=== PATIENT | female | born 1960 | race Caucasian/White ===

== ENCOUNTER → 2016-05-05 | Outpatient (CLI) | payer BC | END | disposition home or self-care (01) | LOC: C.LAB1850 15:20 | PROVIDERS: ATTEND Internal Medicine | DX: Z87.09 Personal history of other diseases of the respiratory system (principal); R05 Cough ==

== ENCOUNTER → 2016-07-22 | Outpatient (CLI) | payer BC ==
--- NOTE | 2016-07-22 16:41 | MAMMOGRAPHY REPORT ---
BILATERAL DIGITAL SCREENING MAMMOGRAM TOMOSYNTHESIS WITH CAD: 07/22/2016 CLINICAL HISTORY: Routine screening. Patient has no complaints. TECHNIQUE: Breast tomosynthesis in addition to standard 2D mammography was performed. Current study was also evaluated with a Computer Aided Detection (CAD) system. COMPARISON: Comparison is made to exams dated: 07/22/2015 mammogram, 07/30/2014 mammogram, 07/11/2014 m ammogram, 06/10/2013 mammogram, 06/07/2012 mammogram, and 05/23/2011 mammogram - [facility]. BREAST COMPOSITION: The tissue of both breasts is heterogeneously dense, which may obscure small ma sses. FINDINGS: No suspicious masses, calcifications, or areas of architectural distortion are noted in e ither breast. There has been no significant interval change compared to prior exams. IMPRESSION: ACR BI-RADS CATEGORY 1: NEGATIVE There is no mammographic evidence of malignancy. A 1 year screening mammogram is recommended. The p atient will receive written notification of the results. Approximately 10% of breast cancers are not detected with mammography. A negative mammographic repor t should not delay biopsy if a clinically suggestive mass is present. Lesvia Mims M.D. ah/:07/22/2016 16:25:10 [employer] Assistant: Melvina ELLSWORTH(Mir)(All)(JOSEFINA), [facility] letter sent: Normal 1/2 BI-RADS Code: ACR BI-RADS Category 1: Negative
== END | disposition home or self-care (01) ==
LOC: C.MAMM 16:02
PROVIDERS: ATTEND Obstetrics & Gynecology
DX: Z12.31 Encounter for screening mammogram for malignant neoplasm of breast (principal)

== ENCOUNTER → 2016-09-26 | Outpatient (CLI) | payer BC | END | disposition home or self-care (01) | LOC: C.PAPS 09:23 | PROVIDERS: ATTEND Obstetrics & Gynecology | DX: Z01.419 Encounter for gynecological examination (general) (routine) without abnormal findings (principal) ==

== ENCOUNTER → 2017-01-23 | Outpatient (CLI) | payer BC ==
[2017-01-27 14:35] LABS: GLIADIN DEAMIDATED IgA AB >100 UNITS (<20); GLIADIN DEAMIDATED IgG AB 50 UNITS (<20); RETICULIN IgA AB Negative (Negative)
== END | disposition home or self-care (01) ==
LOC: C.LAB1850 16:03
PROVIDERS: ATTEND Internal Medicine
DX: R39.15 Urgency of urination (principal)

== ENCOUNTER → 2017-05-05 | Day surgery (SDC) | payer BC, OTHER ==
[2017-03-24 12:13] VITALS: Ht 160 cm; Wt 65.9 kg
[~2017-05-05] VITALS: Ht 160 cm; Wt 65.9 kg
[~2017-05-05] MED LIST: CLB/200 PO; CONJ0.453 PO; CYAN500T13 PO; DOCU100C PO; FERR1TAB23 PO; KRIL1000 PO; LEVO88TA3 PO; LIDOCAINE HCL 2% 2 ML VIAL (20MG/ML) ONE; LUBI8CAP4 PO; MIDAZOLAM HCL 1 MG/ML 2ML VIAL ONE; ONDANSETRON INJ 2 MG/ML 2 ML VIAL ONE; PROPOFOL IV EMULSION 10 MG/ML 20 ML VIAL IV ONE; SODIUM CHLORIDE 0.9% 500ML 500 ML IV ONE
[2017-05-05 11:40] VITALS: TEMP 36.3
--- NOTE | 2017-05-05 12:20 | Endo History and Physical ---
History & Physical Date of Service: May 05, 2017. Chief Complaint: screening Referring Physician: Dr. Yasir King History of Present Illness 56 yo CF who presents for screening colonoscopy. Past Surgical History Hx Cardiac Surgery: No Hx Internal Defibrillator: No Hx Pacemaker: No Hx Abdominal Surgery: No Hx of Implantable Prosthesis: No Hx Post-Op Nausea and Vomiting: No Hx Cancer Surgery: No Hx Thoracic Surgery: No Hx Orthopedic: No Hx Urinary Tract Surgery: No Family History None Social History Smoking Status: Never Smoker Hx Substance Use: No Hx Alcohol Use: No Allergies Coded Allergies: Amoxicillin (Verified Allergy, Unknown, RASH, 03/24/17) Current Medications Reported Home Medications Medications Dose Route/Sig Max Daily Dose Days Date Category Stool Softener (Docusate Sodium) 100 Mg Cap 1 Cap PO QPM 03/24/17 Reported Iron (Ferrous Sulfate) 325 Mg Tab 1 Tab PO QPM 03/24/17 Reported Vitamin B12 500MCG (Cyanocobalamin) 500 Mcg Tab 500 Mcg PO QAM 03/24/17 Reported Krill Oil 1 Cap Cap 300 Mg PO QAM 03/24/17 Reported Amitiza (Lubiprostone) 8 Mcg Cap 8 Mcg PO BID PRN 03/24/17 Reported CeleBREX (Celecoxib) 200 Mg Cap 200 Mg PO QAM 03/24/17 Reported Prempro 0.45MG/1.5MG (Estrogens Conj/Medroxyprogest Acet) Tab 1 Tab PO QPM 03/24/17 Reported Levothyroxine Sodium 88 Mcg Tab 1 Tab PO QAM 03/24/17 Reported Vital Signs Weight (Kilograms): 65.91 Height (Feet): 5 Height (Inches): 3 Date Time Temp Pulse Resp B/P (MAP) Pulse Ox O2 Delivery O2 Flow Rate FiO2 05/05/17 11:40 36.3 63 16 106/66 (79) 99 Room Air Physical Exam General Appearance: WD/WN, no apparent distress Respiratory/Chest: Auscultation: breath sounds normal Cardiovascular: Heart Auscultation: RRR Abdomen: Bowel Sounds: normal Inspection & Palpation: soft, non-distended, no tenderness, guarding & rebound Assessment and Plan Assessment: 56 yo CF who presents for screening colonoscopy. Plan: Proceed with colonoscopy.
[2017-05-05 12:36] LABS: BASO % 0.4 %; BASO ABS # 0.03 K/uL (0-0.2); EOS % 0.9 %; EOS ABS # 0.06 K/uL (0-0.5); HEMATOCRIT 43.5 % (37-47); HEMOGLOBIN 14.9 g/dL (12.0-16.0); IG# 0.02 K/uL (0.00-0.02); LYMPH % 25.2 %; LYMPH ABS # 1.77 K/uL (1.2-3.4); MEAN CELL VOLUME 85.8 fL (80-100); MEAN CORPUSCULAR HEMOGLOBIN 29.4 pg (25-34); MEAN CORPUSCULAR HGB CONC 34.3 g/dl (32-36); MEAN PLATELET VOLUME 10.8 fL (7.4-10.4); MONO % 5.4 %; MONO ABS # 0.38 K/uL (0.11-0.59); NEUT % 67.8 %; NEUT ABS # 4.77 K/uL (1.4-6.5); PLATELET COUNT 188 K/uL (130-400); RED CELL DISTRIBUTION WIDTH CV 14.6 % (11.5-14.5); RED CELL DISTRIBUTION WIDTH SD 45.6 fL (36.4-46.3); WHITE BLOOD COUNT 7.03 K/uL (4.8-10.8)
--- NOTE | 2017-05-05 14:12 | Anesthesiology Progress Note ---
Anesthesia Post Op Note Date & Time May 05, 2017 at 14:12 Vital Signs Pain Intensity: 0 Vital Signs Past 12 Hours Date Time Temp Pulse Resp B/P (MAP) Pulse Ox O2 Delivery O2 Flow Rate FiO2 05/05/17 14:06 70 18 97/63 (74) 95 Room Air 05/05/17 13:52 89 18 102/62 (75) 96 Room Air 05/05/17 11:40 36.3 63 16 106/66 (79) 99 Room Air Notes Mental Status: alert / awake / arousable, participated in evaluation Pt Amnestic to Procedure: Yes Nausea / Vomiting: adequately controlled Pain: adequately controlled Airway Patency, RR, SpO2: stable & adequate BP & HR: stable & adequate Hydration State: stable & adequate Anesthetic Complications: no major complications apparent
--- NOTE | 2017-05-05 14:19 | GI REPORT ---
Procedure Date: 05/05/2017 1:17 PM Procedure: Colonoscopy Indications: Screening for colorectal malignant neoplasm Medicines: Monitored Anesthesia Care Complications: No immediate complications. Estimated Blood Loss: Estimated blood loss: none. Procedure: Pre-Anesthesia Assessment: - Prior to the procedure, a History and Physical was performed, and patient medications and allergies were reviewed. The patient's tolerance of previous anesthesia was also reviewed. The risks and benefits of the procedure and the sedation options and risks were discussed with the patient. All questions were answered, and informed consent was obtained. Prior Anticoagulants: The patient has taken no previous anticoagulant or antiplatelet agents. ASA Grade Assessment: II - A patient with mild systemic disease. After reviewing the risks and benefits, the patient was deemed in satisfactory condition to undergo the procedure. After I obtained informed consent, the scope was passed under direct vision. Throughout the procedure, the patient's blood pressure, pulse, and oxygen saturations were monitored continuously. The On-site loaner was introduced through the anus and advanced to the terminal ileum. The colonoscopy was performed without difficulty. The patient tolerated the procedure well. The quality of the bowel preparation was fair. The terminal ileum, ileocecal valve, appendiceal orifice, and rectum were photographed. Findings: The perianal and digital rectal examinations were normal. Multiple small-mouthed diverticula were found in the sigmoid colon. Non-bleeding internal hemorrhoids were found during retroflexion. The hemorrhoids were small. Impression: - Preparation of the colon was fair. - Diverticulosis in the sigmoid colon. - Non-bleeding internal hemorrhoids. - No specimens collected. Recommendation: - Resume previous diet. - Continue present medications. - Repeat colonoscopy in 3 years for surveillance. - Return to primary care physician as previously scheduled. Toby Becker DO 05/05/2017 2:18:29 PM This report has been signed electronically. Note Initiated On: 05/05/2017 1:17 PM I attest to the content of the Intraoperative Record and orders documented therein, exceptions below
[2017-05-05 14:21] VITALS: BP 110/61; PULSE 63; O2SAT 99
--- NOTE | 2017-05-05 14:24 | Discharge Instructions ---
Endoscopy Patient Instructions Date / Procedure(s) Performed May 05, 2017. Colonoscopy Allergy Information Coded Allergies: Amoxicillin (Verified Allergy, Unknown, RASH, 03/24/17) Discharge Date / Findings May 05, 2017. Diverticulosis Internal hemorrhoids Fair bowel prep Medication Instructions OK to resume all medications today as prescribed Reported Home Medications Medications Dose Route/Sig Max Daily Dose Days Date Category Stool Softener (Docusate Sodium) 100 Mg Cap 1 Cap PO QPM 03/24/17 Reported Iron (Ferrous Sulfate) 325 Mg Tab 1 Tab PO QPM 03/24/17 Reported Vitamin B12 500MCG (Cyanocobalamin) 500 Mcg Tab 500 Mcg PO QAM 03/24/17 Reported Krill Oil 1 Cap Cap 300 Mg PO QAM 03/24/17 Reported Amitiza (Lubiprostone) 8 Mcg Cap 8 Mcg PO BID PRN 03/24/17 Reported CeleBREX (Celecoxib) 200 Mg Cap 200 Mg PO QAM 03/24/17 Reported Prempro 0.45MG/1.5MG (Estrogens Conj/Medroxyprogest Acet) Tab 1 Tab PO QPM 03/24/17 Reported Levothyroxine Sodium 88 Mcg Tab 1 Tab PO QAM 03/24/17 Reported Provider Instructions Activity Restrictions - No exercising or heavy lifting for 24 hours. - Do not drink alcohol the day of the procedure. - Do not drive a car or operate machinery until the day after the procedure. - Do not make any important decisions or sign important papers in 24 hours after the procedure. Following Day: - Return to full activity which may include returning to work/school. Diet Start your diet with liquids and light foods (jello, soup, juice, toast). Then eat your usual diet if not nauseated. Treatment For Common After Affects For mild abdominal pain, bloating, or excessive gas: - Rest - Eat lightly - Lie on right side Follow-Up Information Follow-up with Dr. Yasir King as scheduled Anesthesia Information What You Should Know You have had a procedure that required some medicine to reduce anxiety and discomfort. This treatment is called moderate sedation. After receiving the treatment, you may be sleepy, but you will be able to breathe on your own. The effects of the treatment may last for several hours. Follow these instructions along with Activity/Diet recommendations noted above: * Do NOT do anything where dizziness or clumsiness would be dangerous. * Rest quietly at home today, then you can be up and about tomorrow. * Have a responsible person stay with you the rest of today. * You may have had an I.V. today. If so, you may take the dressing off later today. Recommendations Call your doctor if: * Trouble breathing * Continuous vomiting for more than 24 hours * Temperature above 101 degrees * Severe abdominal pain or bloating * Pain not relieved by pain medicine ordered * There is increased drainage or redness from any incision * A large amount of rectal bleeding greater than 2-3 tablespoons. (If you had a polyp/s removed or have hemorrhoids, a small amount of blood - from the rectum is to be expected.) * You have any unanswered questions or concerns. IN THE EVENT OF A SERIOUS EMERGENCY, GO TO THE NEAREST EMERGENCY ROOM Your discharge instructions were prepared by provider Toby Becker. Patient Instructions Signature Page Marcela Sorenson Patient (or Guardian) Signature/Date: I have read and understand the instructions given to me by my caregivers. Caregiver/RN/Doctor Signature/Date: The above-named patient and/or guardian has received patient instructions on this date. + Original Patient Signature Page (only) stays with chart. Please make copy for patient.
== END | disposition home or self-care (01) ==
LOC: C.GI 10:52
PROVIDERS: ATTEND Internal Medicine
DX: Z12.11 Encounter for screening for malignant neoplasm of colon (principal); K57.30 Diverticulosis of large intestine without perforation or abscess without bleeding; K64.8 Other hemorrhoids; Z88.1 Allergy status to other antibiotic agents; K90.0 Celiac disease; Z98.890 Other specified postprocedural states

== ENCOUNTER → 2017-07-26 | Outpatient (CLI) | payer OTHER ==
[~2017-07-26] MED LIST changes: -LIDOCAINE HCL 2% 2 ML VIAL (20MG/ML) ONE; -MIDAZOLAM HCL 1 MG/ML 2ML VIAL ONE; -ONDANSETRON INJ 2 MG/ML 2 ML VIAL ONE; -PROPOFOL IV EMULSION 10 MG/ML 20 ML VIAL IV ONE; -SODIUM CHLORIDE 0.9% 500ML 500 ML IV ONE
--- NOTE | 2017-07-26 15:22 | MAMMOGRAPHY REPORT ---
BILATERAL DIGITAL SCREENING MAMMOGRAM TOMOSYNTHESIS WITH CAD: 07/26/2017 CLINICAL HISTORY: Routine screening. Patient has no complaints. TECHNIQUE: Breast tomosynthesis in addition to standard 2D mammography was performed. Current study was also evaluated with a Computer Aided Detection (CAD) system. COMPARISON: Comparison is made to exams dated: 07/22/2016 mammogram, 07/22/2015 mammogram, 10/28/2014 a spiration, 07/30/2014 ultrasound, 07/30/2014 mammogram, and 07/11/2014 mammogram - [facility]. BREAST COMPOSITION: The tissue of both breasts is heterogeneously dense, which may obscure small mas ses. FINDINGS: There are possible groupings of microcalcifications in the upper outer middle and posterio r right breast, for which additional spot magnification views are recommended. A possible 5.7 mm nod ular asymmetry in the lateral posterior right breast on CC tomosynthesis slice 25/54 could represent normal overlapping tissue although additional spot compression tomosynthesis view with possible ultra sound is recommended. No other suspicious mass, architectural distortion or cluster of microcalcifications is seen bilatera lllawrence. IMPRESSION: ACR BI-RADS CATEGORY 0: INCOMPLETE EVALUATION: NEED ADDITIONAL IMAGING EVALUATION The possible groupings of microcalcifications in the right upper outer quadrant and 5.7 mm nodular as ymmetry in the lateral right breast need additional imaging evaluation. The patient will be called to schedule an appointment. Approximately 10% of breast cancers are not detected with mammography. A negative mammographic report should not delay biopsy if a clinically suggestive mass is present. Yessy Abraham M.D. ay/:07/26/2017 08:42:52 Telegraph Messenger: Tisha ELLSWORTH(R)(All), [facility] letter sent: Addl Imaging 0 BI-RADS Code: ACR BI-RADS Category 0: Incomplete Evaluation: Need Additional Imaging Evaluation
== END | disposition home or self-care (01) ==
LOC: C.MAMM 07:58
PROVIDERS: ATTEND Obstetrics & Gynecology
DX: Z12.31 Encounter for screening mammogram for malignant neoplasm of breast (principal); R92.8 Other abnormal and inconclusive findings on diagnostic imaging of breast; N64.89 Other specified disorders of breast

== ENCOUNTER 2018-11-08 06:50 | Inpatient (IN) ==
--- NOTE | 2018-10-17 10:55 | PAT Medication Instructions ---
Medication Instructions Date of Service October 17, 2018 Home Medications conj estrogen-medroxyprogesterone 0.3 mg-1.5 mg tablet 1 tab PO HS cyanocobalamin (vit B-12) 500 mcg tablet 500 mcg PO DAILY docusate sodium 100 mg tablet 100 mg PO BID levothyroxine 88 mcg tablet 88 mcg PO QAM DO NOT take the morning of surgery cyanocobalamin (vit B-12) 500 mcg tablet 500 mcg PO DAILY Take morning of surgery With a small sip of water, OTHERWISE NOTHING TO EAT OR DRINK AFTER MIDNIGHT: levothyroxine 88 mcg tablet 88 mcg PO QAM Take evening before surgery conj estrogen-medroxyprogesterone 0.3 mg-1.5 mg tablet 1 tab PO HS docusate sodium 100 mg tablet 100 mg PO BID Other Notes If you have any questions please call us at [phone] or [phone] or [phone] or [phone]
--- NOTE | 2018-10-17 12:03 | Anesthesiology Consultation ---
Date of Service October 17, 2018 Assessment & Plan (1) Encounter for pre-operative examination: PCP Clearance (Elisa Carey PA-C) 10/12: "Patient presents for preoperative medical clearance prior to undergoing left hip replacement. She remains active, achieving >4 METS, without anginal type symptoms. She is felt to be an acceptable risk to proceed with surgery." Chart Review Chart Review: Acceptable Risk for Surgery and Patient seen in Pre Admission Testing Teaching & Discussion Instructed NPO after midnight before surgery, except medications with 15 cc of water. Medication instructions provided according to the PAT guidelines. History Surgery Operation Date: 11/08/18 09:25 Proposed Procedures p Left Total Hip Arthroplasty - Cale Marquez MD Height/Weight Height: 5 ft 3 in Weight: 68.8 kg Allergies Allergy/AdvReac Type Severity Reaction Status Date / Time amoxicillin Allergy Mild RASH Verified 10/10/18 07:57 Medications Home Medications Medication Instructions Recorded Confirmed Last Taken conj estrogen-medroxyprogesterone 1 tab PO HS #3 tab 10/02/18 10/12/18 Unknown 0.3 mg-1.5 mg tablet cyanocobalamin (vit B-12) 500 mcg 500 mcg PO DAILY tab 10/02/18 10/10/18 Unknown tablet docusate sodium 100 mg tablet 100 mg PO BID tab 10/02/18 10/10/18 Unknown levothyroxine 88 mcg tablet 88 mcg PO QAM #30 tab 10/02/18 10/10/18 Unknown Past Medical History Medical History Anemia A CHILD Anxiety PANIC ATTACKS X 2 EPISODES THIS YEAR Hypothyroidism Osteoarthritis Exercise / Class Metabolic Activity II 4-5 Yardwork/Stairs/Walk up hill (Denies CP or SOB with 1 FOS) Past Family History Family History Mother Family history of diabetes mellitus Past Surgical History Surgical History History of colonoscopy History of tooth extraction Past Anesthesia History No Hx of Anesthesia Complications and No Family Hx of Anesthesia Complications GA NAIVE History of PONV No Hx of PONV and Hx of Motion Sickness Social History Smoking Status: Never smoker Do You Dip or Chew Tobacco: No Hx Alcohol Use: No Hx Substance Use: No substance use type: does not use Review of Systems Pt denies any recent chest pain, shortness of breath, palpitations, fever or URI. +dry cough currently Physical Exam Vital Signs BP: 107/70 P: 62bpm SPO2: 93% RA T: 98.0 F R: 12 ENMT Mouth: + dental restorations (one gold crown on molar); no chipped teeth and no loose teeth Thyromental Distance: < 3.5 Finger Breadths (3) Mallampati Class: II Neck normal visual inspection; neck extension not limited Respiratory normal respiratory effort Auscultation: lungs clear to auscultation bilaterally Cardiovascular Rate/Rhythm: regular rate and regular rhythm Heart Sounds: no murmur Vessels: no carotid bruit Extremities: no edema Testing Laboratory Results 10/17/18 12:08 10/17/18 12:08 PT 10.4 Seconds (9.0-12.0) 10/17/18 12:08 INR 1.0 (0.9-1.1) 10/17/18 12:08 APTT 25.9 Seconds (21.0-31.0) 10/17/18 12:08 Hemoglobin A1c 5.8 % (4.5-5.6) H 10/17/18 12:08 Urine Color Yellow 10/17/18 12:08 Urine Appearance Clear (Clear) 10/17/18 12:08 Urine pH 7.5 (4.5-7.5) 10/17/18 12:08 Ur Specific Alpha 1.017 (1.000-1.030) 10/17/18 12:08 Urine Protein Negative (Negative) 10/17/18 12:08 Urine Glucose (UA) Negative (Negative) 10/17/18 12:08 Urine Ketones Negative (Negative) 10/17/18 12:08 Urine Nitrite Negative (Negative) 10/17/18 12:08 Ur Leukocyte Esterase Negative (Negative) 10/17/18 12:08 Blood Type O Positive 10/17/18 12:08 Antibody Screen NEGATIVE 10/17/18 12:08 10/17/18 12:08 Urine Culture - Preliminary Urine,Clean Catch No growth - Less than 1,000 colonies/mL, Final report to follow. Electrocardiogram Date: 10/12/18 Findings: + NSR @ (67bpm with sinus arrhythmia)
[2018-10-17 13:21] LABS: Basophils # (auto) 0.03 K/uL (0-0.2); Basophils % (auto) 0.4 %; Eosinophils % (auto) 1.4 %; Hematocrit (blood only) 35.7 % (37-47); Hemoglobin 11.9 g/dL (12.0-16.0); Immature Granulocytes # (auto) 0.01 K/uL (0.00-0.02); Immature Granulocytes % (auto) 0.1 %; Lymphocytes # (auto) 1.76 K/uL (1.2-3.4); Lymphocytes % (auto) 25.5 %; Mean Corpuscular Hemoglobin 28.6 pg (25-34); Mean Corpuscular Hgb Conc 33.3 g/dL (32-36); Mean Corpuscular Volume 85.8 fL (80-100); Mean Platelet Volume 10.6 fL (7.4-10.4); Monocytes # (auto) 0.27 K/uL (0.11-0.59); Monocytes % (auto) 3.9 %; Neutrophils # (auto) 4.73 K/uL (1.4-6.5); Neutrophils % (auto) 68.7 %; Platelet Count 232 K/uL (130-400); RDW Coefficient of Variation 14.1 % (11.5-14.5); RDW Standard Deviation 43.9 fL (36.4-46.3); Red Blood Count 4.16 M/uL (4.2-5.4)
[2018-10-17 13:23] LABS: Appearance Urine Clear (Clear); Bilirubin Urine Negative (Negative); Blood Urine Negative (Negative); Color Urine Yellow; Glucose Urine UA Negative (Negative); Ketones Urine Negative (Negative); Leukocyte Esterase Urine Negative (Negative); Nitrite Urine Negative (Negative); Protein Urine Negative (Negative); Specific Gravity Urine 1.017 (1.000-1.030); Urobilinogen Urine Negative (Negative); pH Urine 7.5 (4.5-7.5)
[2018-10-17 13:34] LABS: Partial Thromboplastin Time 25.9 Seconds (21.0-31.0); Prothrombin Time 10.4 Seconds (9.0-12.0)
[2018-10-17 13:40] LABS: Albumin Level 3.4 gm/dl (3.4-5.0); BUN Creatinine Ratio 15.8 (10-20); Calcium 8.5 mg/dl (8.5-10.1); Creatinine Clr Calc Pharmacy 58.8 ml/min; Est GFR (African American) 74.6; Est GFR (Non-African American) 64.4; Potassium 4.1 mmol/L (3.5-5.1)
[2018-10-17 13:42] LABS: Estimated Average Glucose 120 mg/dl; Hemoglobin A1C 5.8 % (4.5-5.6)
[2018-10-17 13:43] LABS: Globulin 3.5 gm/dl (2.5-4.0); Total Protein 6.9 gm/dl (6.4-8.2)
--- NOTE | 2018-10-17 16:42 | History & Physical Report ---
Date of Service October 17, 2018 Assessment & Plan (1) Primary osteoarthritis of left hip: DIAGNOSES: Left hip osteoarthritis. PROCEDURE: Left total hip arthroplasty. PLAN: The patient is scheduled to undergo this procedure with Dr. Cale Marquez as an inpatient on , 11/08/2018. Risks and complications of the procedure such as infection, bleeding, pain, scarring, nerve and blood vessel damage, weakness, wound problems, stiffness, incomplete relief of symptoms, hardware failure, hardware loosening, wear, fracture, tendon or ligament injury, dislocation, leg length inequality, blood clots, embolism, heart attack, stroke and were explained to the patient at her visit today by Dr. Marquez. Informed consent to perform the procedure was obtained. We have also obtained medical clearance from the patient's primary care provider, Dr. Yasir King. We will need to obtain a preoperative CBC with differential, complete metabolic panel, PT, INR and blood type and screen, urinalysis, urine culture, EKG, hemoglobin A1c and a nasal culture for MRSA. The patient states she will obtain this necessary testing prior to her preoperative anesthesia appointment at the hospital this afternoon. The patient will be scheduled for her postoperative followup with myself on November 27 at 1:00 in the afternoon. At that time, I will provide her with an order for outpatient physical therapy with rehab protocol. She states that after the procedure, she would like to have in-home therapy, doing basic range of motion exercises for the first 2 weeks. I also provided the patient with paperwork for handicap placard for her vehicle. I advised her that I will discharge her from the hospital with a prescription for narcotic pain medication, also a prescription for diclofenac sodium for postoperative pain and inflammation relief and I will instruct her about purchasing Extra Strength Tylenol to use in conjunction with the oxycodone and using 2 baby aspirin daily for 30 days postoperatively for DVT prophylaxis along with the use of MAICOL stockings. I went over total hip precautions with the patient, discussed the use of the hip abduction pillow, advised her to purchase a hip kit from either [employer] or from [employer] online. She states she does have a walker at home that was her mother's that she will bring with her on the day of the procedure. I advised her that she will most likely stay overnight, and I will discharge her after physical therapy the next morning. I educated the patient about the use of antibiotics prior to dental procedures after this surgery. I also gave her information about attending lectures in regards to joint replacement therapy that are offered by [facility] on the first and monday of every month. I went over the entire packet for hip arthroplasty with the patient and advised her to review it at her leisure. I answered all questions clearly and completely in regards to the procedure and things that she will need to refrain from in the future. I have advised her that most likely she will not be able to drive for at least 4 weeks postoperatively. The patient and her verbalized understanding of all information provided during today's visit, and thanked us for the care they received and state if they have questions or concerns that should arise prior to her surgery date, they will contact the clinic accordingly. History of Present Illness Chief Complaint: CHIEF COMPLAINT: Left hip pain. Primary Care Provider: Gene King MD HISTORY OF PRESENT ILLNESS: This 57-year-old female presents to the clinic today for preoperative history and physical. The patient complains of a 2-year history of persistent pain in the left hip that is becoming increasingly persistent with limited range of motion. The patient denies any traumatic injury to the hip. She referred most of her pain to the anterior aspect of her left thigh and groin as well as over the lateral aspect of her hip. The patient states she is only able to walk approximately 100-200 feet before she has to stop due to pain she is experiencing. She has progressive stiffness which makes it difficult to perform activities of daily living such as putting on socks and shoes. She has used ibuprofen without relief and done some stretching and range of motion exercises, which have not improved her mobility. PAST SURGICAL HISTORY: Colonoscopy. PAST MEDICAL HISTORY: Hypothyroidism and a history of irregular heartbeat/palpitations. FAMILY HISTORY: Positive for diabetes, heart disease, coronary artery disease, stroke and Alzheimer's dementia. ALLERGIES: THE PATIENT HAS MEDICATION ALLERGY TO AMOXICILLIN. CURRENT MEDICATIONS USED: Calcium, stool softener 240 mg oral capsule 1 cap daily as needed for constipation, ibuprofen, OTC 200 mg tablets as needed for pain, levothyroxine unknown dosage daily for hypothyroidism and vitamin B12 unkn own dosage daily. SOCIAL HISTORY: Completely unremarkable. Allergies Allergy/AdvReac Type Severity Reaction Status Date / Time amoxicillin Allergy Mild RASH Verified 10/10/18 07:57 Home Medications Home Medications Medication Instructions Recorded Confirmed Type conj estrogen-medroxyprogesterone 1 tab PO HS #3 tab 10/02/18 10/12/18 History 0.3 mg-1.5 mg tablet cyanocobalamin (vit B-12) 500 mcg 500 mcg PO DAILY tab 10/02/18 10/10/18 History tablet docusate sodium 100 mg tablet 100 mg PO BID tab 10/02/18 10/10/18 History levothyroxine 88 mcg tablet 88 mcg PO QAM #30 tab 10/02/18 10/10/18 History Past Med/Surg History Medical History Anemia A CHILD Anxiety PANIC ATTACKS X 2 EPISODES THIS YEAR Hypothyroidism Osteoarthritis Surgical History History of colonoscopy History of tooth extraction Family History Mother Family history of diabetes mellitus Social History Preferred Language: [place] Communication Ability: Effective Associate Veterinarian Required: No Beliefs That Will Affect Care: None Current Living Situation: Spouse Other Information That Helps Us Care for You: No Feels Safe at Home: Yes Safety Concerns: Feels Safe At This Time Smoking Status: Never smoker Do You Dip or Chew Tobacco: No ; Second Hand Exposure: No ; Tobacco Cessation Education Requested by Patient: No Hx Alcohol Use: No Hx Substance Use: No Review of Systems All systems reviewed & are unremarkable except as noted in HPI & below Physical Exam Physical Exam: PHYSICAL EXAMINATION: Skin: The patient's skin is normal in appearance. No open skin lesions or discharge. Eyes: Pupils are equal and react to light and accommodating. Extraocular movements are intact. Throat: Posterior pharynx is clear with absence of edema, erythema or exudate. Cardiovascular exam: The patient has a regular rate and rhythm with no murmurs or gallops appreciated. Lungs: Auscultation of lung carbajal reveals clear breath sounds throughout, no wheezing, rales or rhonchi. Abdomen is nonobese, nondistended, nontender with normoactive bowel sounds. Extremities: Left hip flexion is 85 degrees, external rotation to 35 degrees, internal rotation 0 degrees. Stinchfield test is positive as is log roll test. Gait is antalgic. Calf is soft and supple, nontender to palpation. The patient is neurovascularly intact in left lower extremity. Peripheral pulses are easily palpable. Capillary refill less than 2 seconds and she has tenderness to palpation over the anterior and lateral aspect of the hip with crepitation with passive range of motion. Neurologic exam: Cranial nerves 2-12 are intact. No motor or sensory deficit. Psychological exam, patient is alert and oriented x3 with proper grooming and hygiene. Results & Data Laboratory Results Laboratory Results - last 48 hr 10/17/18 10/17/18 10/17/18 12:08 12:08 12:08 WBC 6.90 RBC 4.16 L Hgb 11.9 L Hct 35.7 L MCV 85.8 MCH 28.6 MCHC 33.3 RDW Std Deviation 43.9 RDW Coeff of Jazmyn 14.1 Plt Count 232 MPV 10.6 H Immature Gran % (Auto) 0.1 Neut % (Auto) 68.7 Lymph % (Auto) 25.5 Mcdonald % (Auto) 3.9 Eos % (Auto) 1.4 Baso % (Auto) 0.4 Immature Gran # (Auto) 0.01 Neut # (Auto) 4.73 Lymph # (Auto) 1.76 Mcdonald # (Auto) 0.27 Eos # (Auto) 0.10 Baso # (Auto) 0.03 PT INR APTT PTT Ratio Sodium 142 Potassium 4.1 Chloride 110 H Carbon Dioxide 27 Anion Gap 5.0 BUN 15 Creatinine 0.97 Est Cr Clr Drug Dosing 58.8 Est GFR ( Amer) 74.6 Est GFR (Non-Af Amer) 64.4 BUN/Creatinine Ratio 15.8 Glucose 91 Estimat Average Glucose Hemoglobin A1c Calcium 8.5 Total Bilirubin 1.0 AST 13 L ALT 18 Alkaline Phosphatase 87 Total Protein 6.9 Albumin 3.4 Globulin 3.5 Albumin/Globulin Ratio 1.0 Urine Color Yellow Urine Appearance Clear Urine pH 7.5 Ur Specific [place] 1.017 Urine Protein Negative Urine Glucose (UA) Negative Urine Ketones Negative Urine Blood Negative Urine Nitrite Negative Urine Bilirubin Negative Urine Urobilinogen Negative Ur Leukocyte Esterase Negative Nasal Screen MRSA (PCR) Blood Type Antibody Screen 10/17/18 10/17/18 10/17/18 12:08 12:08 12:08 WBC RBC Hgb Hct MCV MCH MCHC RDW Std Deviation RDW Coeff of Jazmyn Plt Count MPV Immature Gran % (Auto) Neut % (Auto) Lymph % (Auto) Mcdonald % (Auto) Eos % (Auto) Baso % (Auto) Immature Gran # (Auto) Neut # (Auto) Lymph # (Auto) Mcdonald # (Auto) Eos # (Auto) Baso # (Auto) PT 10.4 INR 1.0 APTT 25.9 PTT Ratio 1.0 Sodium Potassium Chloride Carbon Dioxide Anion Gap BUN Creatinine Est Cr Clr Drug Dosing Est GFR ( Amer) Est GFR (Non-Af Amer) BUN/Creatinine Ratio Glucose Estimat Average Glucose Hemoglobin A1c Calcium Total Bilirubin AST ALT Alkaline Phosphatase Total Protein Albumin Globulin Albumin/Globulin Ratio Urine Color Urine Appearance Urine pH Ur Specific [place] Urine Protein Urine Glucose (UA) Urine Ketones Urine Blood Urine Nitrite Urine Bilirubin Urine Urobilinogen Ur Leukocyte Esterase Nasal Screen MRSA (PCR) Negative Blood Type O Positive Antibody Screen NEGATIVE 10/17/18 12:08 WBC RBC Hgb Hct MCV MCH MCHC RDW Std Deviation RDW Coeff of Jazmyn Plt Count MPV Immature Gran % (Auto) Neut % (Auto) Lymph % (Auto) Mcdonald % (Auto) Eos % (Auto) Baso % (Auto) Immature Gran # (Auto) Neut # (Auto) Lymph # (Auto) Mcdonald # (Auto) Eos # (Auto) Baso # (Auto) PT INR APTT PTT Ratio Sodium Potassium Chloride Carbon Dioxide Anion Gap BUN Creatinine Est Cr Clr Drug Dosing Est GFR ( Amer) Est GFR (Non-Af Amer) BUN/Creatinine Ratio Glucose Estimat Average Glucose 120 Hemoglobin A1c 5.8 H Calcium Total Bilirubin AST ALT Alkaline Phosphatase Total Protein Albumin Globulin Albumin/Globulin Ratio Urine Color Urine Appearance Urine pH Ur Specific [place] Urine Protein Urine Glucose (UA) Urine Ketones Urine Blood Urine Nitrite Urine Bilirubin Urine Urobilinogen Ur Leukocyte Esterase Nasal Screen MRSA (PCR) Blood Type Antibody Screen
[~2018-11-08 06:50] MED LIST changes: +ACETAMINOPHEN 500 MG TAB PO SCH; +BUPIVACAINE 0.5 % 5 MG/1 ML PF 10ML VIAL ONE; +CEFAZOLIN 2000MG 2,000 MG/15 ML SYR IV SCH; -CLB/200 PO; -CONJ0.453 PO; -CYAN500T13 PO; +CeleBREX 200 MG CAP PO SCH; -DOCU100C PO; +FAMOTIDINE 20 MG TAB PO SCH; -FERR1TAB23 PO; -KRIL1000 PO; +LACTATED RINGER'S 1,000 ML IV SCH; -LEVO88TA3 PO; +LR 500ML BOLUS, THEN 15ML/HR IV SCH; -LUBI8CAP4 PO; +METOCLOPRAMIDE HCL 10 MG TABLET PO SCH; +ROPIVACAINE 0.5% HCL/PF 150 MG, BUPIVACAINE 0.5% MPF 30 ML, EPINEPHrine 0.15 MG, Ketoro... INFIL SCH; +SCOPOLAMINE 1.5 MG TDSY TD SCH; +TRAMADOL HCL 50 MG TABLET PO SCH; +TRANEXAMIC ACID 1,000 MG **IV Intra-op IV SCH; +TRANEXAMIC ACID 1,000 MG **IV Pre-op IV SCH; +dexAMETHasone 4 MG TAB PO SCH
[2018-11-08] MEDS ORDERED: fentaNYL citrate 100 MCG/2 ML VIAL ONE (08:12)
[2018-11-08] MEDS ORDERED: MIDAZOLAM HCL 1 MG/ML 2ML VIAL ONE ×2 (08:12→08:13)
--- NOTE | 2018-11-08 09:40 | History & Physical Bridge Note ---
Date of Service November 08, 2018 History & Physical Bridge Note I have examined the patient, reviewed the History & Physical and in the interval since the performance of the History & Physical I have noted the following changes of clinical significance: no changes noted
[2018-11-08] MEDS ORDERED: ORTHO JOINT ANESTHETIC ONE (09:46)
[2018-11-08] MEDS ORDERED: ATROPINE SULFATE 0.1 MG/ML 10ML SYR IV PRN (10:07)
[2018-11-08] MEDS ORDERED: ePHEDrine sulfate 50 MG/ML AMP IV PRN (10:07)
[2018-11-08] MEDS ORDERED: DEXAMETHASONE SOD INJ 4 MG/ML VIAL ONE (10:37)
[2018-11-08] MEDS ORDERED: ONDANSETRON INJ 2 MG/ML 2 ML VIAL ONE (10:37)
[2018-11-08] MEDS ORDERED: PROPOFOL IV EMULSION 10 MG/ML 20 ML VIAL IV ONE (10:37)
[2018-11-08] MEDS ORDERED: LIDOCAINE HCL 2% 2 ML VIAL/AMP(20MG/ML) INFIL ONE (10:37)
[2018-11-08] MEDS ORDERED: MAGNESIUM HYDROXIDE SUSP 30 ML UDC PO PRN (11:40)
[2018-11-08] MEDS ORDERED: ONDANSETRON INJ 2 MG/ML 2 ML VIAL IV PRN (11:40)
[2018-11-08] MEDS ORDERED: METOCLOPRAMIDE HCL INJ 5 MG/ML 2 ML VIAL IV PRN (11:40)
[2018-11-08] MEDS ORDERED: HYDROmorphone INJ 0.5 MG/0.5 ML SYR IV PRN (11:40)
[2018-11-08] MEDS ORDERED: NALOXONE HCL 0.4 MG/1 ML VIAL/CARP IV PRN (11:40)
[2018-11-08] MEDS ORDERED: BISACODYL 10 MG SUPP PR PRN (11:40)
[2018-11-08] MEDS ORDERED: ALUMINUM/MAGNESIUM SUSP 30 ML UDC PO PRN (11:40)
[2018-11-08] MEDS ORDERED: DiphenhydrAMINE HCL 50 MG/ML VIAL IV PRN (11:40)
--- NOTE | 2018-11-08 11:40 | Operative Report ---
Post Operative Report Pre & Post Diagnosis Operation Date: 11/08/18 09:25 Pre-Op Diagnosis: Left Hip Arthritis Post-Op Diagnosis: Left Hip Arthritis Procedure Operation Date: 11/08/18 09:25 Actual Procedures p Left Total Hip Arthroplasty(Left) - Cale Marquez MD Surgeon Cale Marquez MD Brine Room Laborer Zack Welch MD; Walter Evans MS-3 Estimated Blood Loss 100 Findings Consistent with Post-Op Diagnosis Specimens femoral head Complications none Disposition Accompanied Patient To Recovery: Yes Disposition: Recovery Room Description of Procedure I was present during the entire procedure, however, Dr. Marquez was assisted by Dr. Welch and Walter. Please see his note for specifics of the case. I attest to the content of the Intraoperative Record and any orders documented therein. Any exceptions are noted below.
[2018-11-08] MEDS ORDERED: SODIUM CHLORIDE 0.9% 1000ML 1,000 ML IV SCH (11:45)
[2018-11-08] MEDS ORDERED: KETOROLAC 30 MG/ML VIAL IV SCH (11:45)
[2018-11-08] MEDS ORDERED: TAMSULOSIN HCL 0.4 MG CAP PO PRN (11:46)
--- NOTE | 2018-11-08 12:11 | Operative Report ---
Post Operative Report Pre & Post Diagnosis Operation Date: 11/08/18 09:25 Pre-Op Diagnosis: Left Hip Arthritis Post-Op Diagnosis: Left Hip Arthritis Procedure Operation Date: 11/08/18 09:25 Actual Procedures p Left Total Hip Arthroplasty(Left) - Cale Marquez MD Surgeon Cale Marquez MD Gymnastic Coach Zack Adams MD; Walter Evans MS-3 Estimated Blood Loss 100 Findings Consistent with Post-Op Diagnosis Specimens as per procedure notes Complications none Disposition Accompanied Patient To Recovery: Yes Disposition: Recovery Room Indications 57/F left hip end stage arthritis with no relief following conservative mesaures Description of Procedure Lateral decubitus, standard prep and drape, time out, Ballard's approach for uncemented THR. Please see Dr Marquez's procedure notes for specific details. I was present throughout the case, assisted in wound closure and transferred the patient to PACU in stable condition I attest to the content of the Intraoperative Record and any orders documented therein. Any exceptions are noted below.
--- NOTE | 2018-11-08 12:32 | Operative Report ---
DATE OF OPERATION: 11/08/2018 PREOPERATIVE DIAGNOSIS: Left hip osteoarthritis. POSTOPERATIVE DIAGNOSIS: Left hip osteoarthritis. OPERATION PERFORMED: Left total hip arthroplasty. SURGEON: Cale Marquez MD. ASSISTANTS: Zack Adams MD and Walter Evans MS3. ESTIMATED BLOOD LOSS: 100 mL. INTRAVENOUS FLUIDS: 1800 mL of crystalloid. SPECIMENS: Femoral head. COMPLICATIONS: None. IMPLANTS: 1. DePuy Gription acetabular sector shell, 50 mm outer diameter. 2. DePuy Fanrock 6.5 x 40 mm cancellous bone screw. 3. Fanrock Ultrex polyethylene liner for a 32 mm femoral head neutral. 4. DePuy Bleckley size 2 standard offset femoral stem. 5. Biolox delta ceramic femoral head, 32 mm diameter with +5 offset. INDICATIONS: Ms. Sorenson is a 57-year-old female who has had left hip pain that has been refractory to conservative management. X-rays show [id number] arthritis. I had a long discussion with her about the risks and benefits of surgery, alternatives to surgery and expected outcomes. After reviewing all these, she elected to proceed with surgery. All questions were answered. Informed consent was signed. OPERATIVE FINDINGS: The patient had [id number] arthritis. A ceramic on polyethylene bearing total hip arthroplasty was performed. DESCRIPTION OF THE OPERATION: The patient was identified in the preoperative holding area where her surgical site was marked. She was given a spinal by anesthesia and brought back to the main operating room. She was placed on the operating room table and carefully moved in the lateral decubitus position. Axillary roll was placed. All bony prominences were padded. Perioperative antibiotics were administered. She was prepped and draped in normal sterile fashion. Prior to incision, a multidisciplinary timeout was called. All in the room were in agreement. I began by making a 14 cm long incision for a posterior approach to the hip. We dissected down through subcutaneous tissues to the level of the fascia. Fascia was incised in line with the incision. Charnley bow was placed. The quadratus femoris short external rotators and piriformis were dissected off the posterior aspect of the greater trochanter. Box cut was made in the capsule. The femoral head was dislocated. A femoral neck cut was made at 10 mm after we had measured her center of head to lesser trochanteric distance, which was 53 mm. We then exposed the acetabulum. The labrum was sharply excised. Contents of the cotyloid fossa were removed with electrocautery. We then began reaming. We started with a size 42 mm reamer to medialize her. We then reamed up by [address] up to a size 50. This gave us excellent bleeding cancellous bone. We therefore opened up the 50 DePuy Gription acetabular sector cup. We irrigated out the acetabulum and then impacted the cup with a cup in 40 degrees of lateral opening and 25 degrees of anteversion. A single cancellous bone screw was placed up into the ilium measuring 40 mm in length. Excellent fixation was obtained. The polyethylene liner was then placed. We checked to ensure the locking mechanism had engaged, which it had. We then removed a small inferior osteophyte. We then moved on to the femur. The lateral neck was removed with a Nextdoor cutter osteotome. The intramedullary guide was used followed by the lateralizing reamer. We then reamed her all the way up to between a size 2 and size 3. I then began broaching. With the size 2 broach, we had good torsional stability and the broach sat flush with our neck cut. The preoperative template was between a size 2 and size 3, so I elected to use the size 2 stem. We then trialed her. We started with a standard offset +1.5 mm femoral head. When we reduced her, her leg length was just a little bit short and her shuck test was a little too loose. Therefore, we upsized her to the +5 femoral head. Her lesser troch to center of femoral head distance was 54 mm. We reduced the hip and retrialed her. She now had symmetric leg lengths. Her shuck test was appropriate. There was no impingement with extension and external rotation of the hip. She was stable in the sleeper position. At 90 degrees of hip flexion, she could be internally rotated 45 degrees before levering out of the cup. I was very happy with the stability exam; therefore, I removed the trial components from the femur. The femoral canal was irrigated and dried. We then opened up the real size 2 standard offset Bleckley femoral stem and impacted it down into the femur. It sat at the same level as the broach. We therefore opened up the 32 mm diameter +5 ceramic femoral head. This was gently impacted onto the trunnion. We then atraumatically reduced the hip and irrigated the hip out with a dilute Betadine, which was allowed to sit for 3 minutes. Next, the periarticular injection was placed into the pericapsular tissues, particularly anteriorly and superiorly to avoid the sciatic nerve. Also, it was injected in the subcutaneous tissues. The short external rotators and piriformis were repaired through bone tunnels in the posterior aspect of the greater trochanter using #2 Vicryl. Fascia was run with a looped #1 PDS suture. The deep subcutaneous layers were closed with 2 layers of running #1 PDS. A 2-0 Vicryl was used in the dermal layer. A ZipLine was placed on the skin. Silverlon dressing was placed. The patient was then rolled supine. Her sedation was lifted and she was transferred to the recovery room in stable condition. POSTOPERATIVE COURSE: The patient will be admitted to the hospital overnight for pain control and monitoring. She will be on aspirin for DVT prophylaxis. She will follow posterior hip precautions. I attest to the content of the Intraoperative Record and any orders documented therein. Any exceptions are noted below. JOSE
--- NOTE | 2018-11-08 12:40 | XRay Report ---
AP PELVIS, CROSSTABLE LATERAL LEFT HIP History: Left total hip arthroplasty. Degenerative arthritis. Postop. FINDINGS: The patient is status post a left total hip arthroplasty. The hardware is intact. No fractu re or dislocation. IMPRESSION: Left total hip arthroplasty. No evidence for hardware complication. Electronically signed by: Ben Marroquin M.D. 11/08/2018 12:39 PM
--- NOTE | 2018-11-08 12:59 | Anesthesiology Progress Note ---
Date of Service November 08, 2018 Anesthesia Post Procedure Vital Signs Vital Signs: Temp Pulse Pulse Resp BP Pulse Ox 11/08/18 12:53 36.7 C 63 16 113/66 99 11/08/18 12:40 36.8 C 51 L 16 114/66 99 11/08/18 12:30 52 L 16 114/68 100 11/08/18 12:20 54 L 16 106/64 100 11/08/18 12:10 36.1 C L 62 16 107/62 93 11/08/18 07:23 36.9 C 64 18 122/77 95 Pain Intensity Left Hip: Pain Intensity: 7 Transfer of Care Handoff Completed per policy Notes Mental Status: alert / awake / arousable Patient Amnestic to Procedure: Yes Nausea / Vomiting: adequately controlled Pain: adequately controlled Airway Patency, RR, SpO2: stable & adequate BP & HR: stable & adequate Hydration State: stable & adequate Neuraxial Anesthesia: was administered and sensory block is resolving Anesthetic Complications: no major complications apparent
[2018-11-08] MEDS: KETOROLAC 30 MG/ML VIAL IV SCH ×2 (14:47→20:30)
[2018-11-08] MEDS: ACETAMINOPHEN 500 MG TAB PO SCH ×2 (14:47→20:50)
[2018-11-08] MEDS: CHECK SCOPOLAMINE PATCH PLACEMENT SCH (15:42)
[2018-11-08] MEDS ORDERED: Nursing to Pharmacy Communication ONE (15:43)
[2018-11-08] MEDS: CEFAZOLIN 2000MG 2,000 MG/15 ML SYR IV SCH (17:12)
[2018-11-08] MEDS ORDERED: TRANEXAMIC ACID 1,000 MG in 0.9 % SODIUM CHLORIDE 100 ML IV SCH (17:40)
[2018-11-08] MEDS: OXYCODONE HCL IR 5 MG TAB (IMMEDIATE RELEASE) PO PRN (18:43)
[2018-11-08] MEDS: ASPIRIN 81 MG ECTAB PO SCH (20:31)
[2018-11-08] MEDS: DOCUSATE SODIUM 100 MG CAP PO SCH (20:31)
[2018-11-08] MEDS ORDERED: NON-FORMULARY MEDICATION (Docusate Sodium 100 MG) PO SCH (21:00)
[2018-11-08] MEDS ORDERED: CeleBREX 200 MG CAP PO SCH (21:00)
[2018-11-08] MEDS ORDERED: SENNA 8.6 MG TAB PO SCH (21:00)
[2018-11-09] MEDS: OXYCODONE HCL IR 5 MG TAB (IMMEDIATE RELEASE) PO PRN (00:08)
[2018-11-09] MEDS: CHECK SCOPOLAMINE PATCH PLACEMENT SCH (00:09)
[2018-11-09] MEDS: KETOROLAC 30 MG/ML VIAL IV SCH ×2 (02:55→07:46)
[2018-11-09] MEDS: CEFAZOLIN 2000MG 2,000 MG/15 ML SYR IV SCH (02:56)
[2018-11-09] MEDS: ACETAMINOPHEN 500 MG TAB PO SCH (06:01)
[2018-11-09] MEDS ORDERED: LEVOTHYROXINE SODIUM 88 MCG TABLET PO SCH (06:30)
[2018-11-09 06:49] LABS: Basophils # (auto) 0.01 K/uL (0-0.2); Basophils % (auto) 0.1 %; Hematocrit (blood only) 27.6 % (37-47); Hemoglobin 9.2 g/dL (12.0-16.0); Immature Granulocytes # (auto) 0.03 K/uL (0.00-0.02); Immature Granulocytes % (auto) 0.2 %; Lymphocytes # (auto) 1.31 K/uL (1.2-3.4); Lymphocytes % (auto) 9.1 %; Mean Corpuscular Hgb Conc 33.3 g/dL (32-36); Mean Corpuscular Volume 84.1 fL (80-100); Mean Platelet Volume 9.9 fL (7.4-10.4); Monocytes # (auto) 0.76 K/uL (0.11-0.59); Monocytes % (auto) 5.3 %; Neutrophils # (auto) 12.36 K/uL (1.4-6.5); Neutrophils % (auto) 85.3 %; Platelet Count 221 K/uL (130-400); RDW Coefficient of Variation 13.8 % (11.5-14.5); RDW Standard Deviation 41.9 fL (36.4-46.3); Red Blood Count 3.28 M/uL (4.2-5.4); White Blood Count 14.47 K/uL (4.8-10.8)
[2018-11-09 07:15] LABS: BUN Creatinine Ratio 20.3 (10-20); Calcium 8.7 mg/dl (8.5-10.1); Creatinine Clr Calc Pharmacy 53.8 ml/min; Est GFR (African American) 70.6; Est GFR (Non-African American) 60.9; Potassium 4.5 mmol/L (3.5-5.1)
[2018-11-09] MEDS: DOCUSATE SODIUM 100 MG CAP PO SCH (07:47)
[2018-11-09] MEDS: ASPIRIN 81 MG ECTAB PO SCH (07:47)
[2018-11-09] MEDS ORDERED: dexAMETHasone 4 MG TAB PO SCH (08:00)
--- NOTE | 2018-11-09 08:10 | Anesthesiology Progress Note ---
Date of Service November 09, 2018 Anesthesia Post Procedure Vital Signs Vital Signs: Temp Pulse Pulse Resp BP Pulse Ox 11/09/18 07:13 36.5 C 69 16 104/58 L 94 11/09/18 02:54 37.0 C 54 L 14 101/51 L 94 11/08/18 23:19 36.5 C 55 L 14 107/61 94 11/08/18 19:49 36.4 C L 63 16 110/53 L 92 11/08/18 16:10 36.3 C L 55 L 16 101/52 L 94 11/08/18 15:13 36.3 C L 60 16 102/53 L 95 11/08/18 14:09 64 16 117/69 98 11/08/18 13:39 61 16 112/71 95 11/08/18 13:10 36.3 C L 57 L 16 116/68 96 11/08/18 12:53 36.7 C 63 16 113/66 99 11/08/18 12:40 36.8 C 51 L 16 114/66 99 11/08/18 12:30 52 L 16 114/68 100 11/08/18 12:20 54 L 16 106/64 100 11/08/18 12:10 36.1 C L 62 16 107/62 93 Pain Intensity Left Hip: Pain Intensity: 7 Notes Mental Status: alert / awake / arousable and participated in evaluation Patient Amnestic to Procedure: Yes Nausea / Vomiting: adequately controlled Pain: adequately controlled Airway Patency, RR, SpO2: stable & adequate BP & HR: stable & adequate Hydration State: stable & adequate Neuraxial Anesthesia: was administered and sensory block resolved Anesthetic Complications: no major complications apparent and Pt Satisfied with anesthetic care
[2018-11-09] MEDS ORDERED: CYANOCOBALAMIN 500 MCG TABLET (VITAMIN B-12) PO SCH (09:00)
[2018-11-09] MEDS ORDERED: MULTIVITAMIN TAB PO SCH (09:00)
--- NOTE | 2018-11-09 11:17 | Orthopedic Progress Note ---
Date of Service November 09, 2018 Assessment & Plan (1) S/P total hip arthroplasty: Reviewed Total Hip precautions PT/OT this AM DVT prophy with Aspirin and TEDs Ice with EZ wrap Pain control with PO meds Abduction pillow use for 6 wks post op F/u at [facility] as previously scheduled With any questions call Subjective Patient is day 1 s/p Left total hip arthroplasty. Doing very well. Just finished PT. Ambulating well with walker assistance and did stairs. Mild pain at incision site. Denies CP, SOB, nausea, vomiting, fever, chills, sweats or lethargy. Patient states that he will be ready to go home later this AM with in-home therapy. Physical Exam Physical Exam: Left hip: dressing clean, dry and intact. Minimal TTP around incision site. Able to perform SLRT. Minimal pain with very light passive internal and external rotation. Calf soft and supple. NV intact in entire Lt LE. Minimal edema. No erythema, ecchymosis, warmth or deformity. Results & Data Vital Signs (Past 12 Hours) Vital Signs Temp Pulse Resp BP Pulse Ox 11/09/18 10:54 36.5 C 69 16 104/58 L 94 11/09/18 07:13 36.5 C 69 16 104/58 L 94 11/09/18 02:54 37.0 C 54 L 14 101/51 L 94 11/08/18 23:19 36.5 C 55 L 14 107/61 94 Laboratory Results 11/09/18 11/09/18 Range/Units 06:32 06:32 WBC 14.47 H (4.8-10.8) K/uL RBC 3.28 L (4.2-5.4) M/uL Hgb 9.2 L (12.0-16.0) g/dL Hct 27.6 L (37-47) % MCV 84.1 (80-100) fL MCH 28.0 (25-34) pg MCHC 33.3 (32-36) g/dL RDW Std Deviation 41.9 (36.4-46.3) fL RDW Coeff of Jazmyn 13.8 (11.5-14.5) % Plt Count 221 (130-400) K/uL MPV 9.9 (7.4-10.4) fL Immature Gran % (Auto) 0.2 % Neut % (Auto) 85.3 % Lymph % (Auto) 9.1 % [place] % (Auto) 5.3 % Eos % (Auto) 0.0 % Baso % (Auto) 0.1 % Immature Gran # (Auto) 0.03 H (0.00-0.02) K/uL Neut # (Auto) 12.36 H (1.4-6.5) K/uL Lymph # (Auto) 1.31 (1.2-3.4) K/uL [place] # (Auto) 0.76 H (0.11-0.59) K/uL Eos # (Auto) 0.00 (0-0.5) K/uL Baso # (Auto) 0.01 (0-0.2) K/uL Sodium 138 (136-145) mmol/L Potassium 4.5 (3.5-5.1) mmol/L Chloride 107 (98-107) mmol/L Carbon Dioxide 27 (21-32) mmol/L Anion Gap 4.0 (3-11) BUN 21 H (7-18) mg/dl Creatinine 1.01 (0.6-1.2) mg/dl Est Cr Clr Drug Dosing 53.8 ml/min Est GFR ( Amer) 70.6 Est GFR (Non-Af Amer) 60.9 BUN/Creatinine Ratio 20.3 H (10-20) Glucose 121 H (70-99) mg/dl Calcium 8.7 (8.5-10.1) mg/dl
--- NOTE | 2018-11-09 11:48 | Discharge Summary ---
Date of Service November 09, 2018 Admission HPI Per Admitting Provider HISTORY OF PRESENT ILLNESS: This 57-year-old female presents to the clinic today for preoperative history and physical. The patient complains of a 2-year history of persistent pain in the left hip that is becoming increasingly persistent with limited range of motion. The patient denies any traumatic injury to the hip. She referred most of her pain to the anterior aspect of her left thigh and groin as well as over the lateral aspect of her hip. The patient states she is only able to walk approximately 100-200 feet before she has to stop due to pain she is experiencing. She has progressive stiffness which makes it difficult to perform activities of daily living such as putting on socks and shoes. She has used ibuprofen without relief and done some stretching and range of motion exercises, which have not improved her mobility. PAST SURGICAL HISTORY: Colonoscopy. PAST MEDICAL HISTORY: Hypothyroidism and a history of irregular heartbeat/palpitations. FAMILY HISTORY: Positive for diabetes, heart disease, coronary artery disease, stroke and Alzheimer's dementia. ALLERGIES: THE PATIENT HAS MEDICATION ALLERGY TO AMOXICILLIN. CURRENT MEDICATIONS USED: Calcium, stool softener 240 mg oral capsule 1 cap daily as needed for constipation, ibuprofen, OTC 200 mg tablets as needed for pain, levothyroxine unknown dosage daily for hypothyroidism and vitamin B12 unknown dosage daily. SOCIAL HISTORY: Completely unremarkable. Admission Exam Per Admitting Provider PHYSICAL EXAMINATION: Skin: The patient's skin is normal in appearance. No open skin lesions or discharge. Eyes: Pupils are equal and react to light and accommodating. Extraocular movements are intact. Throat: Posterior pharynx is clear with absence of edema, erythema or exudate. Cardiovascular exam: The patient has a regular rate and rhythm with no murmurs or gallops appreciated. Lungs: Auscultation of lung carbajal reveals clear breath sounds throughout, no wheezing, rales or rhonchi. Abdomen is nonobese, nondistended, nontender with normoactive bowel sounds. Extremities: Left hip flexion is 85 degrees, external rotation to 35 degrees, internal rotation 0 degrees. Stinchfield test is positive as is log roll test. Gait is antalgic. Calf is soft and supple, nontender to palpation. The patient is neurovascularly intact in left lower extremity. Peripheral pulses are easily palpable. Capillary refill less than 2 seconds and she has tenderness to palpation over the anterior and lateral aspect of the hip with crepitation with passive range of motion. Neurologic exam: Cranial nerves 2-12 are intact. No motor or sensory deficit. Psychological exam, patient is alert and oriented x3 with proper grooming and hygiene. Principal Diagnosis Left hip osteoarthritis Discharge Exam Left hip: dressing clean, dry and intact. Minimal TTP around incision site. Able to perform SLRT. Minimal pain with very light passive internal and external rotation. Calf soft and supple. NV intact in entire Lt LE. Minimal edema. No erythema, ecchymosis, warmth or deformity. Discharge Data Allergies Allergy/AdvReac Type Severity Reaction Status Date / Time amoxicillin Allergy Mild RASH Verified 11/08/18 07:20 Consultations 11/09/18 08:00 Consult Case Management - Discharge Planning Routine Procedures Performed Operation Date: 11/08/18 09:25 Actual Procedures p Left Total Hip Arthroplasty(Left) - Cale Marquez MD Hospital Course (1) S/P total hip arthroplasty: Patient did well overnight. Pain well controlled with PO Meds. Will be ready for discharge home with [facility] after OT eval. Did excellent with PT. Reviewed Total Hip precautions PT/OT this AM DVT prophy with Aspirin and TEDs Ice with EZ wrap Pain control with PO meds Abduction pillow use for 6 wks post op F/u at [facility] as previously scheduled With any questions call Total Time Total Time Spent Total Time Spent (In Minutes): 20 Total Time Includes: Examination of the Patient, Discharge Planning and Medication Reconciliation Discharge Plan Discharge Items Patient Disposition: Home - Home Health Services Reason For Visit: Left Hip Arthritis Discharge Diagnosis: Left hip arthritis Discharge Goals: Decrease discomfort, Improve function and Increase independence Activity: As commented below Lifting: None Bathing: Keep incision dry Bathing Comment: May shower tomorrow Sexual Activity: Wait until after follow-up appointment Exercise/Sports: Wait until after follow-up appointment Driving/Machine Use Comment: No driving until cleared by deaf/hard of hearing specialist Weightbearing Comment: as tolerated with walker assistance Non-emergency contact: Primary Care Provider Call non-emergency contact if: you have any medication questions, your pain is not controlled, your temperature is above 101.5 and your wound pain has increased Follow-up/Referrals: Yasir King MD [Primary Care Provider] - Diet: Regular Addtl Provider Instructions: Post-operative Instructions Dear Patient and Family/Friends, Before you are discharged from the hospital, it is important to know what to expect when you get home after surgery. To that end, we have created this sheet of discharge instructions which covers many commonly asked questions. Make sure you go through this sheet in its entirety with your nurse before you are discharged. Please note that we will go over the specifics of your surgery and recovery when you return for your first post-operative visit. Sincerely, Dr. Marquez Medications You will be discharged with prescriptions for Oxycodone and Diclofenac Sodium. Take 1-2 tabs of Oxycodone every 4-6 hrs to control your initial post operative pain. The Diclofenac is also for pain and inflammation relief. Please take 1 tab after breakfast and 1 after dinner for the first 30 days post operatively. Also Please purchase Baby Aspirin (81 mg) and Extra Strength Tylenol. Take 2 baby Aspirin daily for 30 days post operatively. The Tylenol may be taken with every other dose of the Oxycodone and then every 8 hrs as needed for pain relief for the 30 day post operative period. Pain Expect to be in a fair amount of pain after surgery. Remember, our goal is not to eliminate your pain, but to make it tolerable. It is a good idea to stay ahead of your pain by taking the medications you were prescribed once you get home. Typically, the pain starts improving 3-7 days after surgery. You should start weaning off the narcotic pain medication (oxycodone, hydrocodone, hydromorphone, morphine) as soon as your pain improves. Please call our office if your pain is not adequately controlled. Ice Ice your operative site at least 5 times a day for 15-30 minutes at a time. Make sure you have a thin cloth between the ice or cooling unit and your skin to prevent burgos bite. This is especially important if you received a nerve block. Continue icing your operative site for the first 5-7 days after surgery, then as needed. Diet/Nausea/Vomiting Start by drinking clear liquids and eating crackers. If you can tolerate this, then you may resume your normal diet. If you feel nauseated or vomit, take Zofran/ondansetron (if prescribed). Please call our office if you have intractable nausea or vomiting, or, if after hours, you may go to the Emergency Room for help. Constipation Constipation is a common side effect of narcotic pain medication. If you have not had a bowel movement within 2 days after surgery, we recommend purchasing an over the counter laxative such as Milk of Magnesia, Dulcolax, or Miralax from a local pharmacy, and taking it as instructed. Call our clinic if any questions. Slings and Braces If you were placed in a sling or brace, it must be worn at all times, including sleep. You may remove your sling or brace for physical therapy, home exercises, and showering. The length of time you will be in your brace and range of motion restrictions depends on what surgery you had; these details will be reviewed at your first post-operative appointment. Nerve block The anesthesia team sometimes places a nerve block to help with post-operative pain control. This results in significant numbness and inability to move the extremity. The nerve block usually wears off in 8-12 hours, but sometimes can last up to 24 hours. Please call our office if you are still unable to move your extremity after 24 hours, unless you received a pain pump to take home. Nerve blocks typically wear off quickly, so start taking pain medication as soon as you start feeling soreness near your surgical site. Weight bearing and Range of Motion. Do not bear any weight through your operative extremity immediately after surgery. If you had upper extremity surgery, do not lift anything with that arm. If you are in a knee brace, keep it locked in place until your follow-up. We will discuss your weight bearing, range of motion, and lifting restrictions in detail at your first post-operative appointment. Continuous Passive Motion (CPM) Machine If you were prescribed a CPM machine, it will start after your first post- operative appointment, at which time we will give you instructions on the range of motion settings and duration of treatment Physical therapy You will be given a prescription for physical therapy or occupational therapy at your first post-operative appointment. Typically, patients start therapy within 1 week of surgery Wound care and showering We will inspect your wound at your first post-operative visit, and may do a dressing change at that time. Most patients will be in a water-proof dressing that is removed 14 days after surgery. It is normal to see some dried blood on the dressing. Do not remove your dressing, paper strips or sutures yourself unless you are given permission. Showering is allowed the day after surgery. Do not scrub or remove any dressings. The wound should not be submerged underwater (i.e. in a bathtub or pool) until 4 weeks after surgery MAICOL stockings If you were given white stockings, these are to be worn at all times except to shower (on both legs) for the first 2 weeks after surgery. Driving You may not drive while taking narcotic pain medication or while in a cast, splint, sling or brace. You, the patient, need to make the final determination about when you are safe to drive, however, the earliest you may consider driving after surgery is below: Hand/Wrist/Elbow Surgery: 3 days Shoulder Surgery: 2 weeks Hip,/Knee/Ankle Surgery: 4 weeks Fracture repair: 6 weeks Return to Work Your return to work depends on what surgery was done and what type of work you do. Please bring any paperwork your employer needs completed to your first post-operative visit. Also, bring a description of your job duties, as this helps us to understand what risks you may face at work. Travel Avoid long distance travel (greater than 1 hour) in airplanes and cars for the first 6 weeks after surgery. If you must travel, you need to have a Doppler ultrasound done before you travel to rule out a blood clot in your legs. Follow-up You should have a follow-up appointment already scheduled 1-2 days after surger y. If not, please contact our office to make this appointment before you leave the hospital. When to call the office It is normal to have swelling and bruising in the limb that was operated on. This will improve with time. It is also normal to have fevers for the first 2 days after surgery. Reasons you should call your doctor include: Uncontrolled pain; Nausea, vomiting, or constipation that does not improve with medication; Fevers over 101.5, chills, sweats; Drainage or bleeding from the wound; Foul odor; Spreading areas of redness; Any other concerns Prescriptions: New diclofenac sodium 75 mg tablet,delayed release (DR/EC) 75 mg PO Q12H PRN (Reason: pain) Qty: 60 RF: 1 oxycodone 5 mg tablet 5 mg PO Q6H PRN (Reason: pain) Qty: 30 RF: 0 Continued levothyroxine 88 mcg tablet 88 mcg PO QAM Qty: 30 RF: 0 docusate sodium 100 mg tablet 100 mg PO BID RF: 0 cyanocobalamin (vitamin B-12) 500 mcg tablet 500 mcg PO DAILY RF: 0 Stand-Alone Forms: [email or web address], [facility] [employer]/Other Patient Handouts: Surgery Prevent DVT After Discharge Orders: Discharge Order (Routine); Ordered 11/09/18 Ordered By: Maksim Gastelum Admission Data Admit Date/Time: 11/08/18 11:40 Attending Provider: Cale Marquez Admit Provider: Cale Marquez Primary Care Provider: Yasir King Service: Surgical Services Other Interventions: Discharge Summary Assessment (RN) Last Done: 11/09/18 10:54 Pending Studies at Discharge: No
[2018-11-09] MEDS ORDERED: CeleBREX 200 MG CAP PO SCH (21:00)
== END 2018-11-09 12:46 | disposition home health service (06) | DRG 470 ==
LOC: ASU 06:50 → 3E 11:40

== ENCOUNTER 2019-02-02 11:28 | Inpatient (IN) ==
--- NOTE | 2019-02-02 12:08 | Emergency Department Note ---
Entered by Geovany Claire acting as a scribe for Bijan Otero MD History of Present Illness General Chief complaint: Referred by Doctor Stated complaint: BLOOD PRESSURE - HEART RATE UP Time Seen by Provider: 02/02/19 11:42 Source: patient Mode of arrival: ambulatory Limitations: no limitations History of Present Illness Onset (ago): day(s) (last night) Location: abdomen Severity: similar to prior episodes Pain Consistency: + constant Maximum Pain Intensity: 4 Quality: + other (episode) Associated symptoms: + denies other symptoms (fever, chest pain) and + other (RUQ with head pain, whole body pain, light headedness, lower back pain) Treatments prior to arrival: aspirin and other The patient is a 58 year old female who presents to the Emergency Room with complaints of an episode of constant hematochezia and weakness that felt like it has worsened last night. The patient reports that she has been experiencing hematochezia for the last month. She notes that she has additional pain in her RUQ with head pain, whole body pain, light headedness, and lower back pain. She states that the blood in her stool was bright red, and was the dark and tarry when she was placed on an iron supplement. She notes that she was seen in December and given intravenous iron due to low blood iron but that the cause was unknown. The patient denies any fever or chest pain. She notes that she has had an irregular pulse over the last month. The patient notes that she received a blood transfusion January 17 and that her levels went from 7.4-9.8. The patient notes that she has a history of Celiac disease, and received left hip s urgery in October. She notes that she takes a low level of Aspirin. She states that she has a GI consult scheduled for February 11. Home Medications Home Medications Medication Instructions Recorded Confirmed Type cyanocobalamin (vitamin B-12) 500 500 mcg PO QAM tab 10/02/18 02/02/19 History mcg tablet aspirin 81 mg tablet,delayed 81 mg PO QAM 12/04/18 02/02/19 History release ascorbic acid (vitamin C) 500 mg 500 mg PO QAM cap 01/03/19 02/02/19 History capsule docusate sodium [Colace] 100 mg PO BID 01/07/19 02/02/19 History ferrous sulfate 325 mg (65 mg 325 mg PO BID tab 01/15/19 02/02/19 History iron) tablet acetaminophen [Tylenol Extra 500 - 1,000 mg PO Q6H PRN 01/31/19 02/02/19 History Strength] levothyroxine 88 mcg PO QAM 01/31/19 02/02/19 History pantoprazole 40 mg PO BID 01/31/19 02/02/19 History Allergies Allergy/AdvReac Type Severity Reaction Status Date / Time amoxicillin Allergy Mild RASH Verified 02/02/19 12:53 gluten Allergy Mild celiac's Verified 02/02/19 12:53 disease wheat Allergy Mild celiac's Verified 02/02/19 12:53 disease Past Med/Surg History Medical History (Updated 02/02/19 @ 14:28 by Bijan Otero MD) Adult celiac disease (Chronic) confirmed via blood test only Anxiety PANIC ATTACKS X 2 EPISODES THIS YEAR Breast cyst (Chronic) Constipation Depression with anxiety (Chronic) Diverticulosis (Chronic) Fatigue (Chronic) Generalized weakness Moses's thyroiditis (Chronic) History of recent blood transfusion 01/17/2019 for hemoglobin of 7.4 Hypothyroidism Internal hemorrhoids (Chronic) Iron deficiency anemia (Chronic) Iron deficiency anemia secondary to blood loss (chronic) Osteoarthritis Solitary thyroid nodule Submucous leiomyoma of uterus (Resolved) Surgical History H/O breast surgery puncture aspiration of cyst History of colonoscopy History of tooth extraction History of total left hip replacement Hx of biopsy biopsy thyroid using percutaneous core needle Family History Mother Diabetes Family history of diabetes mellitus Coronary heart disease S/P triple vessel bypass Sister Family history of diabetes mellitus Other No family history of adverse response to anesthesia Social History Preferred Language: Estonian Communication Ability: Effective Director Of Category Management Required: No Beliefs That Will Affect Care: None marital status: Current Living Situation: Spouse Other Information That Helps Us Care for You: No Feels Safe at Home: Yes Safety Concerns: Feels Safe At This Time Smoking Status: Never smoker Do You Dip or Chew Tobacco: No ; Second Hand Exposure: No ; Tobacco Cessation Education Requested by Patient: No Hx Alcohol Use: No Hx Substance Use: No Physical Activity Frequency: Does not Exercise Review of Systems See HPI for pertinent positives & negatives. and A total of 10 systems reviewed and were otherwise negative Physical Exam Vital Signs Vital Signs - 24 hr 02/02/19 11:33 02/02/19 11:43 02/02/19 11:53 Temperature 36.5 C Temperature Source Oral Pulse Rate 86 84 83 Pulse Rate from SpO2 Sensor 84 82 Respiratory Rate 18 24 21 Respiratory Effort / Characteristics Non-Labored Spontaneous Respiratory Depth Normal Respiratory Pattern Regular Blood Pressure 97/62 L 112/62 Blood Pressure Mean 73 72 Blood Pressure Position Sitting Pulse Oximetry 95 97 97 Oxygen Delivery Method Room Air Sepsis Recent Fever Within 48 Hours No Sepsis New/Unexplained Change in Mental Status No Sepsis Action Taken by Nursing No Action Required 02/02/19 11:55 02/02/19 12:13 02/02/19 12:16 Temperature Temperature Source Pulse Rate 81 77 82 Pulse Rate from SpO2 Sensor 76 Respiratory Rate 20 20 19 Respiratory Effort / Characteristics Respiratory Depth Respiratory Pattern Blood Pressure 96/56 L Blood Pressure Mean 67 Blood Pressure Position Pulse Oximetry 97 99 Oxygen Delivery Method Room Air Sepsis Recent Fever Within 48 Hours Sepsis New/Unexplained Change in Mental Status Sepsis Action Taken by Nursing 02/02/19 12:17 02/02/19 12:30 02/02/19 12:31 Temperature Temperature Source Pulse Rate 74 80 78 Pulse Rate from SpO2 Sensor 75 80 78 Respiratory Rate 16 22 22 Respiratory Effort / Characteristics Respiratory Depth Respiratory Pattern Blood Pressure 96/59 L Blood Pressure Mean 70 Blood Pressure Position Pulse Oximetry 96 94 93 Oxygen Delivery Method Sepsis Recent Fever Within 48 Hours Sepsis New/Unexplained Change in Mental Status Sepsis Action Taken by Nursing 02/02/19 13:00 02/02/19 13:01 02/02/19 13:30 Temperature Temperature Source Pulse Rate 77 76 73 Pulse Rate from SpO2 Sensor 78 76 73 Respiratory Rate 22 18 20 Respiratory Effort / Characteristics Respiratory Depth Respiratory Pattern Blood Pressure 102/66 100/58 L Blood Pressure Mean 86 72 Blood Pressure Position Pulse Oximetry 98 98 96 Oxygen Delivery Method Sepsis Recent Fever Within 48 Hours Sepsis New/Unexplained Change in Mental Status Sepsis Action Taken by Nursing 02/02/19 13:31 02/02/19 14:00 02/02/19 14:01 Temperature Temperature Source Pulse Rate 73 71 71 Pulse Rate from SpO2 Sensor 73 71 71 Respiratory Rate 20 17 14 Respiratory Effort / Characteristics Respiratory Depth Respiratory Pattern Blood Pressure 107/55 L Blood Pressure Mean 68 Blood Pressure Position Pulse Oximetry 95 95 98 Oxygen Delivery Method Sepsis Recent Fever Within 48 Hours Sepsis New/Unexplained Change in Mental Status Sepsis Action Taken by Nursing General: Non-ill appearing middle age female in no acute distress. HEENT: Normal cephalic atraumatic. Pupils are equal round and reactive to light. Extraocular movements are intact. Oropharynx is pink with moist mucous membranes. No swelling of the mouth lips or tongue. Neck: Supple with a midline trachea. No meningeal signs or stiffness, no JVD or bruits. No Stridor. Chest: Clear to auscultation bilaterally. No wheezes or rhonchi. No increased work of breathing. Heart: regular rate and rhythm. Abdomen: Mildly tender in the midline, nondistended without rebound guarding or rigidity. Extremities: No cyanosis clubbing or edema. No calf tenderness or asymmetry Spine/Back. Non tender to palpation. No CVA tenderness Skin: Good turgor without rashes. Neurologic exam: Cranial nerves two through 12 are intact. Motor and sensation are intact and symmetrical throughout. Course Course 1144: The patient was evaluated in room C10. A complete history and physical exam was performed. 1225: I checked up on the patient and she is doing okay. I ordered her a normal saline bolus. 1235: I checked on the patient and she was transitioned to CT. 1326: I consulted Dr. Terrell, hospitalist [facility] and he agreed to accept the patient. The patient verbally expressed understanding and agreement of the treatment plan. The patient will be evaluated for further treatment. Administered Medications Ioversol (Optiray 320 100ml) 94 ml IV ONCE PRN PRN Reason: Interaction Checking Stop: 02/06/19 12:52 Last Admin: 02/02/19 12:54 Dose: 94 ml Documented by: [id number] Discontinued Medications Sodium Chloride (Nss 1000ml) 500 mls @ 999 mls/hr IV .Q31M ONE Stop: 02/02/19 12:55 Last Infusion: 02/02/19 13:02 Dose: 0 mls/hr Documented by: [id number] Admin: 02/02/19 12:30 Dose: 999 mls/hr Documented by: [id number] Medical Decision Making Differential Diagnosis GI bleed, anemia, electrolyte abnormality, metabolic abnormality Medical Records Attestation: I reviewed the patient's medical records. Home Medications Current Medication List: was personally reviewed by me Laboratory Data Attestation: I reviewed the patient's lab results. Result diagrams: 02/02/19 12:11 02/02/19 12:11 Lab Results 02/02/19 02/02/19 02/02/19 Range/Units 12:11 12:11 12:11 WBC 8.70 (4.8-10.8) K/uL RBC 2.82 L (4.2-5.4) M/uL Hgb 8.3 L (12.0-16.0) g/dL Hct 26.3 L (37-47) % MCV 93.3 (80-100) fL MCH 29.4 (25-34) pg MCHC 31.6 L (32-36) g/dL RDW Std Deviation 55.6 H (36.4-46.3) fL RDW Coeff of Jazmyn 16.6 H (11.5-14.5) % Plt Count 357 (130-400) K/uL MPV 9.3 (7.4-10.4) fL Immature Gran % (Auto) 0.2 % Neut % (Auto) 68.8 % Lymph % (Auto) 23.6 % [place] % (Auto) 4.9 % Eos % (Auto) 2.0 % Baso % (Auto) 0.5 % Immature Gran # (Auto) 0.02 (0.00-0.02) K/uL Neut # (Auto) 5.99 (1.4-6.5) K/uL Lymph # (Auto) 2.05 (1.2-3.4) K/uL [place] # (Auto) 0.43 (0.11-0.59) K/uL Eos # (Auto) 0.17 (0-0.5) K/uL Baso # (Auto) 0.04 (0-0.2) K/uL Sodium 140 (136-145) mmol/L Potassium 3.8 (3.5-5.1) mmol/L Chloride 108 H (98-107) mmol/L Carbon Dioxide 25 (21-32) mmol/L Anion Gap 7.0 (3-11) BUN 17 (7-18) mg/dl Creatinine 1.05 (0.6-1.2) mg/dl Est Cr Clr Drug Dosing 53.7 ml/min Est GFR ( Amer) 67.3 Est GFR (Non-Af Amer) 58.1 BUN/Creatinine Ratio 16.0 (10-20) Glucose 87 (70-99) mg/dl Calcium 8.9 (8.5-10.1) mg/dl Total Bilirubin 0.2 (0.2-1) mg/dl AST 11 L (15-37) U/L ALT 18 (12-78) U/L Alkaline Phosphatase 99 (45-117) U/L Troponin I < 0.015 (0-0.045) ng/ml Total Protein 6.5 (6.4-8.2) gm/dl Albumin 3.1 L (3.4-5.0) gm/dl Globulin 3.4 (2.5-4.0) gm/dl Albumin/Globulin Ratio 0.9 (0.9-2) TSH 0.706 (0.300-4.500) uIu/ml Urine Color Urine Appearance (Clear) Urine pH (4.5-7.5) Ur Specific [place] (1.000-1.030) Urine Protein (Negative) Urine Glucose (UA) (Negative) Urine Ketones (Negative) Urine Blood (Negative) Urine Nitrite (Negative) Urine Bilirubin (Negative) Urine Urobilinogen (Negative) Ur Leukocyte Esterase (Negative) Blood Type O Positive Antibody Screen NEGATIVE 02/02/19 Range/Units 12:12 WBC (4.8-10.8) K/uL RBC (4.2-5.4) M/uL Hgb (12.0-16.0) g/dL Hct (37-47) % MCV (80-100) fL MCH (25-34) pg MCHC (32-36) g/dL RDW Std Deviation (36.4-46.3) fL RDW Coeff of Jazmyn (11.5-14.5) % Plt Count (130-400) K/uL MPV (7.4-10.4) fL Immature Gran % (Auto) % Neut % (Auto) % Lymph % (Auto) % [place] % (Auto) % Eos % (Auto) % Baso % (Auto) % Immature Gran # (Auto) (0.00-0.02) K/uL Neut # (Auto) (1.4-6.5) K/uL Lymph # (Auto) (1.2-3.4) K/uL [place] # (Auto) (0.11-0.59) K/uL Eos # (Auto) (0-0.5) K/uL Baso # (Auto) (0-0.2) K/uL Sodium (136-145) mmol/L Potassium (3.5-5.1) mmol/L Chloride (98-107) mmol/L Carbon Dioxide (21-32) mmol/L Anion Gap (3-11) BUN (7-18) mg/dl Creatinine (0.6-1.2) mg/dl Est Cr Clr Drug Dosing ml/min Est GFR ( Amer) Est GFR (Non-Af Amer) BUN/Creatinine Ratio (10-20) Glucose (70-99) mg/dl Calcium (8.5-10.1) mg/dl Total Bilirubin (0.2-1) mg/dl AST (15-37) U/L ALT (12-78) U/L Alkaline Phosphatase (45-117) U/L Troponin I (0-0.045) ng/ml Total Protein (6.4-8.2) gm/dl Albumin (3.4-5.0) gm/dl Globulin (2.5-4.0) gm/dl Albumin/Globulin Ratio (0.9-2) TSH (0.300-4.500) uIu/ml Urine Color Yellow Urine Appearance Clear (Clear) Urine pH 5.5 (4.5-7.5) Ur Specific [place] 1.009 (1.000-1.030) Urine Protein Negative (Negative) Urine Glucose (UA) Negative (Negative) Urine Ketones Negative (Negative) Urine Blood Negative (Negative) Urine Nitrite Negative (Negative) Urine Bilirubin Negative (Negative) Urine Urobilinogen Negative (Negative) Ur Leukocyte Esterase Negative (Negative) Blood Type Antibody Screen Imaging Data Radiologist's Impression: Radiology results as stated below per my review and the radiologist's interpretation: SINGLE VIEW CHEST CLINICAL HISTORY: Generalized weakness. FINDINGS: An AP, portable, upright chest radiograph is obtained. No prior studies are available for comparison at the time of dictation. The examination is degraded by portable technique and patient rotation. The cardiomediastinal silhouette is unremarkable. There is mild bibasilar atelectasis. The lungs and pleural spaces are otherwise clear. No pneumothorax is seen. The bony thorax is grossly intact. IMPRESSION: No active disease in the chest. Electronically signed by: Jass Huertas M.D. 02/02/2019 12:[address] SCAN OF THE ABDOMEN AND PELVIS WITH IV CONTRAST CLINICAL HISTORY: Right lower quadrant abdominal pain. COMPARISON STUDY: Pelvic ultrasound dated 01/10/2019. TECHNIQUE: Following the IV administration of 94 cc of Optiray 320, CT scan of the abdomen and pelvis is performed from the lung bases to the proximal femora. Images are reviewed in the axial, sagittal, and coronal planes. IV contrast was administered without complication. A dose lowering technique was utilized adhering to the principles of ALARA. CT DOSE: 354.84 mGy.cm FINDINGS: Lung bases: The heart is mildly enlarged and without pericardial effusion. There are coronary artery calcifications. The lung bases are clear noting dependent atelectasis. Liver: The contrast-enhanced liver is normal in size, contour, and attenuation. There is no intrahepatic biliary ductal dilatation. The hepatic veins and portal veins are patent. A 1.1 cm cyst is noted in the caudate lobe. Gallbladder: Unremarkable. Spleen: Normal in size and attenuation. Pancreas: Unremarkable. Adrenal glands: Unremarkable. Kidneys: The contrast enhanced kidneys are normal in size and without hydronephrosis. The kidneys enhance symmetrically. Abdominal vasculature: The abdominal aorta is normal in course and caliber. Bowel: There is moderate to severe constipation. No bowel obstruction is seen. The appendix is well-visualized and normal. Peritoneum: There is no intraperitoneal free air or abdominal ascites. There is a small fat-containing umbilical hernia. Lymphadenopathy: Prominent mesenteric lymph nodes in the right lower quadrant measure up to 7 mm in short axis. No pathologically enlarged lymph nodes are identified in the abdomen or pelvis. Pelvic viscera: Evaluation of the pelvis is degraded by streak artifact from a left hip arthroplasty. The bladder, uterus, and adnexa are normal as imaged. Th ere is a 5 mm calculus within the bladder lumen seen on image #406. Skeletal structures: The skeletal structures are osteopenic. Degenerative sclerosis is noted in the sacroiliac joints. No lytic or blastic lesions are seen. A left hip arthroplasty is in place. IMPRESSION: 1. The appendix is well-visualized and normal. 2. Moderate to severe constipation. No bowel obstruction is seen. 3. A 5 mm calculus is present within the bladder lumen. 4. No hydronephrosis or perinephric inflammation is identified. 5. Prominent mesenteric lymph nodes in the right lower quadrant are nonspecific and likely on a reactive basis. 6. Mild cardiomegaly. 7. Additional findings as above. Electronically signed by: Jass Huertas M.D. 02/02/2019 1:07 PM Blood Pressure Blood Pressure Findings: Normal blood pressure Blood Pressure Disposition: further management by hospitalist MDM Narrative This patient comes in as described above she has been having issues with anemia over the last month or so. Apparently this has been multifactorial as she had recent surgery and also has been having symptoms of a GI bleed and additionally has been iron deficient. She has received IV iron as well as a blood transfusion. Despite this, she continues to feel weak and is concerned that her hemoglobin is gone down again. She continues have blood in her stool. She also has right sided abdominal pain. A CAT scan was ordered but the patient said she could not tolerate p.o. contrast. I ordered here with just IV contrast. Multiple blood testing was obtained she was typed and screened. She had an EKG and was reassessed frequently. EKG does not suggest acute coronary syndrome or arrhythmia. She has no acute electrolyte or metabolic abnormality. Hemoglobin did drop from 9.8-8.3 today. That is over an 8-day.. I did look at her stool and it was melanotic with some maroon in it and it was guaiac positive. I am concerned for an ongoing GI bleed. CAT scan shows no acute findings with expect exception of possible mesenteric adenitis. With her symptomatic anemia, borderline low blood pressure, I do think that she needs to be admitted/observe for monitor and treatment of her hemoglobin, GI work-up and possible transfusions. Impression & Plan GI bleed, Melena, Abdominal pain, RLQ, Celiac disease, Anemia Discharge Plan Visit Data Chief Complaint: Referred by Doctor Stated Complaint: BLOOD PRESSURE - HEART RATE UP ED Provider: Bijan Otero Discharge Problem: GI bleed, Melena, Abdominal pain, RLQ, Celiac disease, Anemia Patient Disposition: Being Evaluated by Hospitalist Forms Stand Alone Forms: My [facility] [place] [facility] Prescriptions Prescriptions: No Action cyanocobalamin (vitamin B-12) 500 mcg tablet 500 mcg PO QAM RF: 0 aspirin [Adult Low Dose Aspirin] 81 mg tablet,delayed release (DR/EC) 81 mg PO QAM RF: 0 ferrous sulfate 325 mg (65 mg iron) tablet 325 mg PO BID RF: 0 ascorbic acid (vitamin C) 500 mg capsule 500 mg PO QAM RF: 0 docusate sodium [Colace] 100 mg Capsule 100 mg PO BID RF: 0 acetaminophen [Tylenol Extra Strength] 500 mg Tablet 500 - 1,000 mg PO Q6H PRN (Reason: Pain) RF: 0 pantoprazole 40 mg Tablet,Delayed Release (Dr/Ec) 40 mg PO BID RF: 0 levothyroxine 88 mcg tablet 88 mcg PO QAM RF: 0 Referrals Referrals: Yasir King MD [Primary Care Provider] - Discharge Problem: GI bleed Qualifiers: GI bleed type/associated pathology: unspecified gastrointestinal hemorrhage type Qualified Code(s): K92.2 - Gastrointestinal hemorrhage, unspecified Anemia Qualifiers: Anemia type: unspecified type Qualified Code(s): D64.9 - Anemia, unspecified The scribe's documentation has been prepared under my direction and personally reviewed by me in its entirety. I confirm that the note above accurately reflects all work, treatment, procedures, and medical decision making performed by me.
[2019-02-02] MEDS ORDERED: SODIUM CHLORIDE 0.9% 1000ML 500 ML IV ONE (12:25)
--- NOTE | 2019-02-02 12:28 | XRay Report ---
SINGLE VIEW CHEST CLINICAL HISTORY: Generalized weakness. FINDINGS: An AP, portable, upright chest radiograph is obtained. No prior studies are available for c omparison at the time of dictation. The examination is degraded by portable technique and patient rot ation. The cardiomediastinal silhouette is unremarkable. There is mild bibasilar atelectasis. The delicia gs and pleural spaces are otherwise clear. No pneumothorax is seen. The bony thorax is grossly intact . IMPRESSION: No active disease in the chest. Electronically signed by: Jass Huertas M.D. 02/02/2019 12:26 PM
[2019-02-02 12:29] LABS: Basophils # (auto) 0.04 K/uL (0-0.2); Basophils % (auto) 0.5 %; Eosinophils # (auto) 0.17 K/uL (0-0.5); Hematocrit (blood only) 26.3 % (37-47); Hemoglobin 8.3 g/dL (12.0-16.0); Immature Granulocytes # (auto) 0.02 K/uL (0.00-0.02); Immature Granulocytes % (auto) 0.2 %; Lymphocytes # (auto) 2.05 K/uL (1.2-3.4); Lymphocytes % (auto) 23.6 %; Mean Corpuscular Hemoglobin 29.4 pg (25-34); Mean Corpuscular Hgb Conc 31.6 g/dL (32-36); Mean Corpuscular Volume 93.3 fL (80-100); Mean Platelet Volume 9.3 fL (7.4-10.4); Monocytes # (auto) 0.43 K/uL (0.11-0.59); Monocytes % (auto) 4.9 %; Neutrophils # (auto) 5.99 K/uL (1.4-6.5); Neutrophils % (auto) 68.8 %; Platelet Count 357 K/uL (130-400); RDW Coefficient of Variation 16.6 % (11.5-14.5); RDW Standard Deviation 55.6 fL (36.4-46.3); Red Blood Count 2.82 M/uL (4.2-5.4)
[2019-02-02 12:30] LABS: Appearance Urine Clear (Clear); Bilirubin Urine Negative (Negative); Blood Urine Negative (Negative); Color Urine Yellow; Glucose Urine UA Negative (Negative); Ketones Urine Negative (Negative); Leukocyte Esterase Urine Negative (Negative); Nitrite Urine Negative (Negative); Protein Urine Negative (Negative); Specific Gravity Urine 1.009 (1.000-1.030); Urobilinogen Urine Negative (Negative); pH Urine 5.5 (4.5-7.5)
[2019-02-02 12:45] LABS: Alanine Aminotransferase 18 U/L (12-78); Albumin Level 3.1 gm/dl (3.4-5.0); Aspartate Aminotransferase 11 U/L (15-37); Blood Urea Nitrogen 17 mg/dl (7-18); Calcium 8.9 mg/dl (8.5-10.1); Carbon Dioxide 25 mmol/L (21-32); Chloride 108 mmol/L (98-107); Creatinine Clr Calc Pharmacy 53.7 ml/min; Est GFR (African American) 67.3; Est GFR (Non-African American) 58.1; Glucose 87 mg/dl (70-99); Potassium 3.8 mmol/L (3.5-5.1); Sodium 140 mmol/L (136-145)
[2019-02-02] MEDS ORDERED: IOVERSOL 100ml IV PRN (12:53)
[2019-02-02 12:56] LABS: Albumin Globulin Ratio 0.9 (0.9-2); Alkaline Phosphatase 99 U/L (45-117); Bilirubin,Total 0.2 mg/dl (0.2-1); Globulin 3.4 gm/dl (2.5-4.0); Thyroid Stimulating Hormone 0.706 uIu/ml (0.300-4.500); Total Protein 6.5 gm/dl (6.4-8.2); Troponin I < 0.015 ng/ml (0-0.045)
--- NOTE | 2019-02-02 13:08 | CT Scan Report ---
CT SCAN OF THE ABDOMEN AND PELVIS WITH IV CONTRAST CLINICAL HISTORY: Right lower quadrant abdominal pain. COMPARISON STUDY: Pelvic ultrasound dated 01/10/2019. TECHNIQUE: Following the IV administration of 94 cc of Optiray 320, CT scan of the abdomen and pelvi s is performed from the lung bases to the proximal femora. Images are reviewed in the axial, sagittal , and coronal planes. IV contrast was administered without complication. A dose lowering technique wa s utilized adhering to the principles of ALARA. CT DOSE: 354.84 mGy.cm FINDINGS: Lung bases: The heart is mildly enlarged and without pericardial effusion. There are coronary artery calcifications. The lung bases are clear noting dependent atelectasis. Liver: The contrast-enhanced liver is normal in size, contour, and attenuation. There is no intrahepa tic biliary ductal dilatation. The hepatic veins and portal veins are patent. A 1.1 cm cyst is noted in the caudate lobe. Gallbladder: Unremarkable. Spleen: Normal in size and attenuation. Pancreas: Unremarkable. Adrenal glands: Unremarkable. Kidneys: The contrast enhanced kidneys are normal in size and without hydronephrosis. The kidneys enh ance symmetrically. Abdominal vasculature: The abdominal aorta is normal in course and caliber. Bowel: There is moderate to severe constipation. No bowel obstruction is seen. The appendix is well- visualized and normal. Peritoneum: There is no intraperitoneal free air or abdominal ascites. There is a small fat-containin g umbilical hernia. Lymphadenopathy: Prominent mesenteric lymph nodes in the right lower quadrant measure up to 7 mm in s hort axis. No pathologically enlarged lymph nodes are identified in the abdomen or pelvis. Pelvic viscera: Evaluation of the pelvis is degraded by streak artifact from a left hip arthroplasty. The bladder, uterus, and adnexa are normal as imaged. There is a 5 mm calculus within the bladder rupal men seen on image #406. Skeletal structures: The skeletal structures are osteopenic. Degenerative sclerosis is noted in the s acroiliac joints. No lytic or blastic lesions are seen. A left hip arthroplasty is in place. IMPRESSION: 1. The appendix is well-visualized and normal. 2. Moderate to severe constipation. No bowel obstruction is seen. 3. A 5 mm calculus is present within the bladder lumen. 4. No hydronephrosis or perinephric inflammation is identified. 5. Prominent mesenteric lymph nodes in the right lower quadrant are nonspecific and likely on a react naeem basis. 6. Mild cardiomegaly. 7. Additional findings as above. Electronically signed by: Jass Huertas M.D. 02/02/2019 1:07 PM
--- NOTE | 2019-02-02 13:49 | History & Physical Report ---
Date of Service February 02, 2019 Assessment & Plan (1) GI bleed: Continue PPI. Consult GI. (2) Celiac disease: (3) Iron deficiency: Continue iron supplements. (4) Adult celiac disease: (5) Moses's thyroiditis: Continue Synthroid. (6) Internal hemorrhoids: (7) Fatigue associated with anemia: Monitor CBC and transfuse accordingly. (8) Generalized weakness: Repeat labs in am. (9) Constipation: Add laxatives PRN basis. (10) S/P total hip arthroplasty: (11) Anemia: (12) Iron deficiency anemia: (13) Iron deficiency anemia secondary to blood loss (chronic): History of Present Illness Chief Complaint: Generalized weakness and history of anemia Primary Care Provider: Yasir King MD The patient is 58-year-old female with history of iron deficiency anemia and history of celiac disease. She has received IV iron and blood transfusions in the past. The patient has been complaining of generalized weakness and fatigue for last 1 month. She called her family physician yesterday who advised her to go to the ER. Stool for occult blood is positive in the ER. The patient is currently on iron supplements. She denies any bloody stools. No hematemesis. Her last colonoscopy was last year. She has history of chronic constipation. She is also complaining of some nonspecific pain in the lower abdomen. She was started on aspirin after her left hip arthroplasty on November 08. She will be admitted for further evaluation and management. Allergies Allergy/AdvReac Type Severity Reaction Status Date / Time amoxicillin Allergy Mild RASH Verified 02/02/19 12:53 gluten Allergy Mild celiac's Verified 02/02/19 12:53 disease wheat Allergy Mild celiac's Verified 02/02/19 12:53 disease Home Medications Home Medications Medication Instructions Recorded Confirmed Type cyanocobalamin (vitamin B-12) 500 500 mcg PO QAM tab 10/02/18 02/02/19 History mcg tablet aspirin 81 mg tablet,delayed 81 mg PO QAM 12/04/18 02/02/19 History release ascorbic acid (vitamin C) 500 mg 500 mg PO QAM cap 01/03/19 02/02/19 History capsule docusate sodium [Colace] 100 mg PO BID 01/07/19 02/02/19 History ferrous sulfate 325 mg (65 mg 325 mg PO BID tab 01/15/19 02/02/19 History iron) tablet acetaminophen [Tylenol Extra 500 - 1,000 mg PO Q6H PRN 01/31/19 02/02/19 History Strength] levothyroxine 88 mcg PO QAM 01/31/19 02/02/19 History pantoprazole 40 mg PO BID 01/31/19 02/02/19 History Past Med/Surg History Medical History Adult celiac disease (Chronic) confirmed via blood test only Anxiety PANIC ATTACKS X 2 EPISODES THIS YEAR Breast cyst (Chronic) Depression with anxiety (Chronic) Diverticulosis (Chronic) Fatigue (Chronic) Moses's thyroiditis (Chronic) History of recent blood transfusion 01/17/2019 for hemoglobin of 7.4 Hypothyroidism Internal hemorrhoids (Chronic) Iron deficiency anemia (Chronic) Osteoarthritis Solitary thyroid nodule Submucous leiomyoma of uterus (Resolved) Surgical History H/O breast surgery puncture aspiration of cyst History of colonoscopy History of tooth extraction History of total left hip replacement Hx of biopsy biopsy thyroid using percutaneous core needle Family History Mother Diabetes Family history of diabetes mellitus Coronary heart disease S/P triple vessel bypass Sister Family history of diabetes mellitus Other No family history of adverse response to anesthesia Social History Preferred Language: Ukrainian Communication Ability: Effective Elocution Teacher Required: No Beliefs That Will Affect Care: None marital status: Current Living Situation: Spouse Other Information That Helps Us Care for You: No Feels Safe at Home: Yes Safety Concerns: Feels Safe At This Time Smoking Status: Never smoker Do You Dip or Chew Tobacco: No ; Second Hand Exposure: No ; Tobacco Cessation Education Requested by Patient: No Hx Alcohol Use: No Hx Substance Use: No Physical Activity Frequency: Does not Exercise Review of Systems Review of Systems: All systems reviewed & are unremarkable except as noted in HPI & below Physical Exam Physical Exam: GENERAL : No acute distress EYES: No icterus, gaze conjugate NOSE: No evidence of epistaxis MOUTH: No lesions or candidiasis, mucosa moist NECK: Supple LUNGS: CTA B/L, no wheezes, rales or rhonchi HEART: Regular, rate controlled ABDOMEN: Soft, NT, ND, BS Present EXTREMITIES: No LE edema, pedal pulses intact NEURO: A&OX3 Results & Data Vital Signs (Past 12 Hours) Vital Signs Temp Pulse Resp BP Pulse Ox 02/02/19 13:01 76 18 98 02/02/19 13:00 77 22 102/66 98 02/02/19 12:31 78 22 93 02/02/19 12:30 80 22 96/59 L 94 02/02/19 12:17 74 16 96 02/02/19 12:16 82 19 96/56 L 99 02/02/19 12:13 77 20 02/02/19 11:55 81 20 97 02/02/19 11:53 83 21 97 02/02/19 11:43 84 24 112/62 97 02/02/19 11:33 97.7 F 86 18 97/62 L 95 Laboratory Results 02/02/19 12:11 02/02/19 12:[address] SCAN OF THE ABDOMEN AND PELVIS WITH IV CONTRAST CLINICAL HISTORY: Right lower quadrant abdominal pain. COMPARISON STUDY: Pelvic ultrasound dated 01/10/2019. TECHNIQUE: Following the IV administration of 94 cc of Optiray 320, CT scan of the abdomen and pelvis is performed from the lung bases to the proximal femora. Images are reviewed in the axial, sagittal, and coronal planes. IV contrast was administered without complication. A dose lowering technique was utilized adhering to the principles of ALARA. CT DOSE: 354.84 mGy.cm FINDINGS: Lung bases: The heart is mildly enlarged and without pericardial effusion. There are coronary artery calcifications. The lung bases are clear noting dependent atelectasis. Liver: The contrast-enhanced liver is normal in size, contour, and attenuation. There is no intrahepatic biliary ductal dilatation. The hepatic veins and portal veins are patent. A 1.1 cm cyst is noted in the caudate lobe. Gallbladder: Unremarkable. Spleen: Normal in size and attenuation. Pancreas: Unremarkable. Adrenal glands: Unremarkable. Kidneys: The contrast enhanced kidneys are normal in size and without hydronephrosis. The kidneys enhance symmetrically. Abdominal vasculature: The abdominal aorta is normal in course and caliber. Bowel: There is moderate to severe constipation. No bowel obstruction is seen. The appendix is well-visualized and normal. Peritoneum: There is no intraperitoneal free air or abdominal ascites. There is a small fat-containing umbilical hernia. Lymphadenopathy: Prominent mesenteric lymph nodes in the right lower quadrant measure up to 7 mm in short axis. No pathologically enlarged lymph nodes are identified in the abdomen or pelvis. Pelvic viscera: Evaluation of the pelvis is degraded by streak artifact from a left hip arthroplasty. The bladder, uterus, and adnexa are normal as imaged. There is a 5 mm calculus within the bladder lumen seen on image #[id number]. Skeletal structures: The skeletal structures are osteopenic. Degenerative sclerosis is noted in the sacroiliac joints. No lytic or blastic lesions are seen. A left hip arthroplasty is in place. IMPRESSION: 1. The appendix is well-visualized and normal. 2. Moderate to severe constipation. No bowel obstruction is seen. 3. A 5 mm calculus is present within the bladder lumen. 4. No hydronephrosis or perinephric inflammation is identified. 5. Prominent mesenteric lymph nodes in the right lower quadrant are nonspecific and likely on a reactive basis. 6. Mild cardiomegaly. 7. Additional findings as above. Code Status & VTE Plan VTE Prophylaxis Plan VTE Prophylaxis will be ordered: Yes PG Care Time/CCT Total # of Minutes Spent Total Time Spent with Patient: Total time spent is greater than 50% in coordination of care (as documented) at patient's floor/unit and/or counseling patient: (1) GI bleed GI bleed type/associated pathology: unspecified gastrointestinal hemorrhage type Qualified Code(s): K92.2 - Gastrointestinal hemorrhage, unspecified
[2019-02-02] MEDS ORDERED: bisacodyL 5 MG TABEC PO ONE (15:34)
[2019-02-02] MEDS: SODIUM CHLORIDE 0.9% 1000ML 1,000 ML IV SCH (15:57)
[2019-02-02 19:52] LABS: Hematocrit (blood only) 21.8 % (37-47); Mean Corpuscular Hemoglobin 29.9 pg (25-34); Mean Corpuscular Hgb Conc 32.1 g/dL (32-36); Mean Corpuscular Volume 93.2 fL (80-100); Mean Platelet Volume 9.1 fL (7.4-10.4); Platelet Count 281 K/uL (130-400); RDW Coefficient of Variation 16.9 % (11.5-14.5); RDW Standard Deviation 56.8 fL (36.4-46.3); Red Blood Count 2.34 M/uL (4.2-5.4); White Blood Count 6.85 K/uL (4.8-10.8)
[2019-02-02] MEDS: DOCUSATE SODIUM 100 MG CAP PO SCH (21:02)
[2019-02-02] MEDS: PANTOprazole 40 MG TAB PO SCH (21:02)
[2019-02-02] MEDS: FERROUS SULFATE 325 MG TAB PO SCH (21:02)
[2019-02-02] MEDS: ACETAMINOPHEN 500 MG TAB PO PRN (21:08)
[2019-02-03] MEDS: LEVOTHYROXINE SODIUM 88 MCG TABLET PO SCH (06:17)
[2019-02-03 06:34] LABS: Basophils # (auto) 0.03 K/uL (0-0.2); Basophils % (auto) 0.5 %; Eosinophils # (auto) 0.18 K/uL (0-0.5); Eosinophils % (auto) 3.2 %; Hematocrit (blood only) 21.8 % (37-47); Immature Granulocytes # (auto) 0.02 K/uL (0.00-0.02); Immature Granulocytes % (auto) 0.4 %; Lymphocytes # (auto) 1.85 K/uL (1.2-3.4); Lymphocytes % (auto) 32.5 %; Mean Corpuscular Hgb Conc 32.1 g/dL (32-36); Mean Corpuscular Volume 93.6 fL (80-100); Mean Platelet Volume 9.3 fL (7.4-10.4); Monocytes # (auto) 0.26 K/uL (0.11-0.59); Monocytes % (auto) 4.6 %; Neutrophils # (auto) 3.35 K/uL (1.4-6.5); Neutrophils % (auto) 58.8 %; Platelet Count 275 K/uL (130-400); RDW Coefficient of Variation 16.9 % (11.5-14.5); RDW Standard Deviation 57.3 fL (36.4-46.3); Red Blood Count 2.33 M/uL (4.2-5.4); White Blood Count 5.69 K/uL (4.8-10.8)
[2019-02-03 07:01] LABS: RBC Morphology Unremarkable
[2019-02-03 07:07] LABS: BUN Creatinine Ratio 20.4 (10-20); Calcium 8.5 mg/dl (8.5-10.1); Creatinine Clr Calc Pharmacy 75.1 ml/min; Est GFR (African American) 101.1; Est GFR (Non-African American) 87.2
[2019-02-03] MEDS: ASPIRIN 81 MG ECTAB PO SCH (08:44)
[2019-02-03] MEDS: FERROUS SULFATE 325 MG TAB PO SCH ×2 (08:44→21:08)
[2019-02-03] MEDS: ASCORBIC ACID 500 MG TAB PO SCH (08:44)
[2019-02-03] MEDS: CYANOCOBALAMIN 500 MCG TABLET (VITAMIN B-12) PO SCH (08:44)
[2019-02-03] MEDS: PANTOprazole 40 MG TAB PO SCH ×2 (08:45→21:07)
[2019-02-03] MEDS: DOCUSATE SODIUM 100 MG CAP PO SCH ×2 (08:45→21:07)
[2019-02-03] MEDS: SODIUM CHLORIDE 0.9% 1000ML 1,000 ML IV SCH (09:37)
[2019-02-03 10:41] LABS: Ferritin 48.4 ng/ml (8-388)
[2019-02-03] MEDS ORDERED: SODIUM CHLORIDE 0.9% 250 ML IV PRN (10:49)
[2019-02-03] MEDS ORDERED: bisacodyL 5 MG TABEC PO ONE (12:00)
--- NOTE | 2019-02-03 13:10 | Gastrointestinal Consultation ---
Date of Consultation February 03, 2019 Assessment & Plan (1) Iron deficiency anemia secondary to blood loss (chronic): (2) Melena: (3) GI bleed: Continue twice daily oral PPI NPO after midnight Split dose prep today EGD and Colonoscopy in AM Transfuse PRN to maintain H/H above 8/24 Discussed case with patient's and Dr. Umanzor History of Present Illness Reason for Consultation: Marcela Sorenson is a 58 yo CF who presented to the ER yesterday with complaints of weakness and fatigue. She states that she has been feeling poorly over the past month, and has been anemic, and has been receiving oral as well as IV Iron therapy, and did receive a blood transfusion last month for continued symptoms. She contacted her PCP yesterday with complaints and was advised to proceed to the ER. Upon arrival to the ER, she was noted to be severely anemic with an H/H of 8.3 and 26.3. She was subsequently admitted and was typed and crossed to receive 2 u PRBC, as her H/h fell to 7.0 and 21.8 overnight. Of note, she was placed on twice daily pantoprazole therapy approximately 1 week ago for some dark stools that she had attributed to her oral iron therapy. She does take an 81 mg ASA daily for cardiac prevention. At the time I saw Mrs. Sorenson, she was feeling less lightheaded, though still weak. She states she has not had any BM's since her arrival to the ER. She did note some blood with her BM's over the past few weeks, and dark stools as noted above. Her last colonoscopy was approximately 2 years ago, and she was noted to have diverticulosis and internal hemorrhoids at that time, but no other findi ngs. Her bowel prep at that time was fair and she was advised to have a 3 year surveillance interval. She denies any abdominal pain at present, and further denies any fevers, chills, nausea, vomiting, hematemesis, or other complaints. Attending Physician: Jimi Umanzor Allergies Allergy/AdvReac Type Severity Reaction Status Date / Time amoxicillin Allergy Mild RASH Verified 02/02/19 12:53 gluten Allergy Mild celiac's Verified 02/02/19 12:53 disease wheat Allergy Mild celiac's Verified 02/02/19 12:53 disease Home Medications Home Medications Medication Instructions Recorded Confirmed Type cyanocobalamin (vitamin B-12) 500 500 mcg PO QAM tab 10/02/18 02/02/19 History mcg tablet aspirin 81 mg tablet,delayed 81 mg PO QAM 12/04/18 02/02/19 History release ascorbic acid (vitamin C) 500 mg 500 mg PO QAM cap 01/03/19 02/02/19 History capsule docusate sodium [Colace] 100 mg PO BID 01/07/19 02/02/19 History ferrous sulfate 325 mg (65 mg 325 mg PO BID tab 01/15/19 02/02/19 History iron) tablet acetaminophen [Tylenol Extra 500 - 1,000 mg PO Q6H PRN 01/31/19 02/02/19 History Strength] levothyroxine 88 mcg PO QAM 01/31/19 02/02/19 History pantoprazole 40 mg PO BID 01/31/19 02/02/19 History Patient History Medical History Adult celiac disease (Chronic) confirmed via blood test only Anxiety PANIC ATTACKS X 2 EPISODES THIS YEAR Breast cyst (Chronic) Constipation Depression with anxiety (Chronic) Diverticulosis (Chronic) Fatigue (Chronic) Generalized weakness Moses's thyroiditis (Chronic) History of recent blood transfusion 01/17/2019 for hemoglobin of 7.4 Hypothyroidism Internal hemorrhoids (Chronic) Iron deficiency anemia (Chronic) Iron deficiency anemia secondary to blood loss (chronic) Osteoarthritis Solitary thyroid nodule Submucous leiomyoma of uterus (Resolved) Surgical History H/O breast surgery puncture aspiration of cyst History of colonoscopy History of tooth extraction History of total left hip replacement Hx of biopsy biopsy thyroid using percutaneous core needle Family History Mother Diabetes Family history of diabetes mellitus Coronary heart disease S/P triple vessel bypass Sister Family history of diabetes mellitus Other No family history of adverse response to anesthesia Social History Preferred Language: Maori Communication Ability: Effective 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 Beliefs That Will Affect Care: None marital status: Current Living Situation: Spouse Feels Safe at Home: Yes Smoking Status: Never smoker Second Hand Exposure: No ; Hx Alcohol Use: No Hx Substance Use: No Physical Activity Frequency: Does not Exercise Review of Systems Review of Systems: All systems reviewed & are unremarkable except as noted in HPI & below Physical Exam Constitutional: WD/WN, vitals as above Eyes: PERRL, conjunctivae normal, anicteric sclerae ENMT: external ear and nose normal, oropharynx normal Neck: trachea midline, no thyromegaly Respiratory: normal respiratory effort, lungs clear to auscultation Cardiovascular: RRR, no murmur, no edema Gastrointestinal (Abdomen): normal bowel sounds, soft, nontender, no hepatosplenomegaly Skin: no rashes, warm and dry Psychiatric: A+Ox3, euthymic affect Results & Data Vital Signs (Past 12 Hours) Vital Signs Temp Pulse Pulse Resp BP BP Pulse Ox 02/03/19 12:44 36.8 C 78 20 105/62 94 02/03/19 11:36 36.8 C 84 16 112/67 99 02/03/19 07:15 71 02/03/19 06:52 36.9 C 74 16 119/63 93 02/03/19 03:23 36.7 C 77 16 111/68 94 PG Care Time/CCT Total # of Minutes Spent Total Time Spent with Patient: Total time spent is greater than 50% in coordination of care (as documented) at patient's floor/unit and/or counseling patient: (1) GI bleed GI bleed type/associated pathology: unspecified gastrointestinal hemorrhage type Qualified Code(s): K92.2 - Gastrointestinal hemorrhage, unspecified
--- NOTE | 2019-02-03 14:03 | Nephrology Consultation ---
Date of Consultation February 03, 2019 Assessment & Plan (1) Iron deficiency anemia secondary to blood loss (chronic): Defer management to primary team. The patient is hemodynamically stable. Electrolytes are appropriate. She has normal kidney function. There is no indication for additional nephrologic evaluation. IV saline infusion switched to LR. Nephrology will sign-off. Please call with questions or concerns. (2) Melena: (3) GI bleed: GI consult reviewed. History of Present Illness Reason for Consultation: Anemia, patient known to you Requesting Physician: Jimi Umanzor Attending Physician: Jimi Umanzor History of Present Illness Marcela Sorenson is a 58-year-old female seen in consultation regarding anemia. Marcela follows in the outpatient clinic with Dr. King. Medical history is notable for celiac sprue, diverticulosis, internal hemorrhoids, hypothyroidism, history of iron deficiency anemia, recent diagnosis of tinea versicolor. She was admitted to [facility] yesterday with hematochezia and weakness. She had some mild right upper quadrant abdominal pain. Symptoms have been intermittent. Patient was evaluated on January 15 with palpitations and generalized fatigue. Holter monitor demonstrated some ventricular beats. There was also evidence of aberrant conduction. She has been undergoing workup with this with her primary care provider. Renal function has been consistently normal. Volume status and blood pressure normal. Allergies Allergy/AdvReac Type Severity Reaction Status Date / Time amoxicillin Allergy Mild RASH Verified 02/02/19 12:53 gluten Allergy Mild celiac's Verified 02/02/19 12:53 disease wheat Allergy Mild celiac's Verified 02/02/19 12:53 disease Home Medications Home Medications Medication Instructions Recorded Confirmed Type cyanocobalamin (vitamin B-12) 500 500 mcg PO QAM tab 10/02/18 02/02/19 History mcg tablet aspirin 81 mg tablet,delayed 81 mg PO QAM 12/04/18 02/02/19 History release ascorbic acid (vitamin C) 500 mg 500 mg PO QAM cap 01/03/19 02/02/19 History capsule docusate sodium [Colace] 100 mg PO BID 01/07/19 02/02/19 History ferrous sulfate 325 mg (65 mg 325 mg PO BID tab 01/15/19 02/02/19 History iron) tablet acetaminophen [Tylenol Extra 500 - 1,000 mg PO Q6H PRN 01/31/19 02/02/19 History Strength] levothyroxine 88 mcg PO QAM 01/31/19 02/02/19 History pantoprazole 40 mg PO BID 01/31/19 02/02/19 History Patient History Medical History Adult celiac disease (Chronic) confirmed via blood test only Anxiety PANIC ATTACKS X 2 EPISODES THIS YEAR Breast cyst (Chronic) Constipation Depression with anxiety (Chronic) Diverticulosis (Chronic) Fatigue (Chronic) Generalized weakness Moses's thyroiditis (Chronic) History of recent blood transfusion 01/17/2019 for hemoglobin of 7.4 Hypothyroidism Internal hemorrhoids (Chronic) Iron deficiency anemia (Chronic) Iron deficiency anemia secondary to blood loss (chronic) Osteoarthritis Solitary thyroid nodule Submucous leiomyoma of uterus (Resolved) Surgical History H/O breast surgery puncture aspiration of cyst History of colonoscopy History of tooth extraction History of total left hip replacement Hx of biopsy biopsy thyroid using percutaneous core needle Family History Mother Diabetes Family history of diabetes mellitus Coronary heart disease S/P triple vessel bypass Sister Family history of diabetes mellitus Other No family history of adverse response to anesthesia Social History Preferred Language: Croatian Communication Ability: Effective Door Fitter Required: No Beliefs That Will Affect Care: None marital status: Current Living Situation: Spouse Feels Safe at Home: Yes Smoking Status: Never smoker Second Hand Exposure: No ; Hx Alcohol Use: No Hx Substance Use: No Physical Activity Frequency: Does not Exercise Review of Systems Review of Systems: All systems reviewed & are unremarkable except as noted in HPI & below Physical Exam Constitutional: well developed; no acute distress Eyes: no scleral abnormality and no corneal abnormality ENMT: Mouth: no oral mucosal abnormality and oral mucous membranes not dry Neck: normal visual inspection and trachea midline Respiratory: normal respiratory effort Auscultation: lungs clear to auscultation bilaterally Cardiovascular: Rate/Rhythm: regular rate Heart Sounds: normal S1 and normal S2 Extremities: no edema Musculoskeletal: Extremities: no cyanosis and no clubbing Skin: normal turgor; no lesions Neurologic: Motor/Sensory: no tremor and no asterixis Psychiatric: Orientation: alert and oriented x 3 Results & Data Vital Signs (Past 12 Hours) Vital Signs Temp Pulse Pulse Resp BP BP Pulse Ox 02/03/19 13:18 36.8 C 76 20 110/67 94 02/03/19 13:03 36.8 C 76 20 106/65 94 02/03/19 12:44 36.8 C 78 20 105/62 94 02/03/19 11:36 36.8 C 84 16 112/67 99 02/03/19 07:15 71 02/03/19 06:52 36.9 C 74 16 119/63 93 02/03/19 03:23 36.7 C 77 16 111/68 94 Laboratory Results Laboratory Results - last 24 hr 02/02/19 02/02/19 02/03/19 12:11 19:26 06:09 WBC 6.85 5.69 RBC 2.34 L 2.33 L Hgb 7.0 L 7.0 L Hct 21.8 L 21.8 L MCV 93.2 93.6 MCH 29.9 30.0 MCHC 32.1 32.1 RDW Std Deviation 56.8 H 57.3 H RDW Coeff of Jazmyn 16.9 H 16.9 H Plt Count 281 275 MPV 9.1 9.3 Immature Gran % (Auto) 0.4 Neut % (Auto) 58.8 Lymph % (Auto) 32.5 Drew % (Auto) 4.6 Eos % (Auto) 3.2 Baso % (Auto) 0.5 Immature Gran # (Auto) 0.02 Neut # (Auto) 3.35 Lymph # (Auto) 1.85 Drew # (Auto) 0.26 Eos # (Auto) 0.18 Baso # (Auto) 0.03 RBC Morphology Unremarkable Sodium Potassium Chloride Carbon Dioxide Anion Gap BUN Creatinine Est Cr Clr Drug Dosing Est GFR ( Amer) Est GFR (Non-Af Amer) BUN/Creatinine Ratio Glucose Calcium Magnesium Iron TIBC Ferritin Blood Type O Positive Antibody Screen NEGATIVE Crossmatch See Detail 02/03/19 02/03/19 06:09 06:09 WBC RBC Hgb Hct MCV MCH MCHC RDW Std Deviation RDW Coeff of Jazmyn Plt Count MPV Immature Gran % (Auto) Neut % (Auto) Lymph % (Auto) Drew % (Auto) Eos % (Auto) Baso % (Auto) Immature Gran # (Auto) Neut # (Auto) Lymph # (Auto) Drew # (Auto) Eos # (Auto) Baso # (Auto) RBC Morphology Sodium 143 Potassium 4.0 Chloride 114 H Carbon Dioxide 24 Anion Gap 6.0 BUN 15 Creatinine 0.75 D Est Cr Clr Drug Dosing 75.1 Est GFR ( Amer) 101.1 Est GFR (Non-Af Amer) 87.2 BUN/Creatinine Ratio 20.4 H Glucose 84 Calcium 8.5 Magnesium 2.0 Iron 20 L TIBC 287 Ferritin 48.4 Blood Type Antibody Screen Crossmatch PG Care Time/CCT Total # of Minutes Spent Total Time Spent with Patient: Total time spent is greater than 50% in coordination of care (as documented) at patient's floor/unit and/or counseling patient: (1) GI bleed GI bleed type/associated pathology: unspecified gastrointestinal hemorrhage type Qualified Code(s): K92.2 - Gastrointestinal hemorrhage, unspecified
[2019-02-03] MEDS: LACTATED RINGER'S 1,000 ML IV SCH (18:48)
[2019-02-03] MEDS: POLYETHYLENE (MIRALAX) 17 GM PACK PO SCH (18:51)
--- NOTE | 2019-02-03 22:25 | Hospitalist Progress Note ---
Date of Service February 03, 2019 Assessment & Plan (1) GI bleed: Continue PPI. Consult GI. Patient has dark stools that point towards upper GI bleed, but this is likely explained by iron tablets. Given her history of anemia and red blood in her stools, this is likely a lower GI bleed. Patient is agreeable to upper and lower scope. Given that her H and H stabilzed after admission to 7 points that her bleed likely spontaneously stoped. This could go with diverticuli bleed, perhaps AVM. Will transfuse 2 PRBC as patient has been weak and dizzy. Consulted GI. (2) Celiac disease: (3) Iron deficiency: Continue iron supplements. (4) Adult celiac disease: (5) Moses's thyroiditis: Continue Synthroid. (6) Internal hemorrhoids: (7) Fatigue associated with anemia: Monitor CBC and transfuse accordingly. (8) Generalized weakness: Repeat labs in am. (9) Constipation: Add laxatives PRN basis. (10) S/P total hip arthroplasty: (11) Anemia: (12) Iron deficiency anemia: (13) Iron deficiency anemia secondary to blood loss (chronic): as stated above. ordered iron studies DISPO: Upper and lower GI scopes tomorrow Subjective 58 yo female reports she has dark stools since starting her iron pills. Prior to that she had red tinged stools. She reports sh had a colonsocopy over a year ago, but the prep wasnt completely adequate. She states that they found diverticuli, no masses. Patient currently complains of RLQ abdominal pain which radiates to the back. Patient reorts she still gets dizzy, and lightheaded She is also having generalized weakness. Review of Systems Review of Systems: All systems reviewed & are unremarkable except as noted in HPI & below Physical Exam Constitutional: WD/WN, vitals as above well developed and well nourished Eyes: PERRL, conjunctivae normal, anicteric sclerae ENMT: external ear and nose normal, oropharynx normal Neck: trachea midline, no thyromegaly Respiratory: normal respiratory effort, lungs clear to auscultation Cardiovascular: RRR, no murmur, no edema Gastrointestinal (Abdomen): normal bowel sounds, soft, nontender, no hepatosplenomegaly Skin: no rashes, warm and dry Neurologic: normal touch/pain/proprioception Psychiatric: A+Ox3, euthymic affect Results & Data Vital Signs (Past 12 Hours) Vital Signs Temp Pulse Pulse Resp BP BP Pulse Ox 02/03/19 19:14 36.6 C 75 18 126/76 96 02/03/19 18:47 36.8 C 77 20 112/70 96 02/03/19 18:32 36.8 C 79 20 118/74 96 02/03/19 17:32 36.8 C 83 20 133/74 96 02/03/19 17:02 36.8 C 80 20 123/70 96 02/03/19 16:47 36.8 C 80 20 133/74 96 02/03/19 16:29 36.8 C 75 20 131/74 96 02/03/19 15:41 36.8 C 72 20 113/68 96 02/03/19 14:48 36.8 C 74 20 112/68 94 02/03/19 14:20 76 02/03/19 13:48 36.8 C 78 20 109/68 94 02/03/19 13:18 36.8 C 76 20 110/67 94 02/03/19 13:03 36.8 C 76 20 106/65 94 02/03/19 12:44 36.8 C 78 20 105/62 94 02/03/19 11:36 36.8 C 84 16 112/67 99 PG Care Time/CCT Total # of Minutes Spent Total Time Spent with Patient: Total time spent is greater than 50% in coordination of care (as documented) at patient's floor/unit and/or counseling patient: (1) GI bleed GI bleed type/associated pathology: unspecified gastrointestinal hemorrhage type Qualified Code(s): K92.2 - Gastrointestinal hemorrhage, unspecified
[2019-02-04] MEDS: POLYETHYLENE (MIRALAX) 17 GM PACK PO SCH (02:04)
[2019-02-04] MEDS: LACTATED RINGER'S 1,000 ML IV SCH (02:04)
[2019-02-04] MEDS: LEVOTHYROXINE SODIUM 88 MCG TABLET PO SCH (06:30)
[2019-02-04 07:30] LABS: Hematocrit (blood only) 30.8 % (37-47); Hemoglobin 9.8 g/dL (12.0-16.0); Mean Corpuscular Hgb Conc 31.8 g/dL (32-36); Mean Corpuscular Volume 91.1 fL (80-100); Mean Platelet Volume 9.1 fL (7.4-10.4); Platelet Count 287 K/uL (130-400); RDW Coefficient of Variation 16.7 % (11.5-14.5); RDW Standard Deviation 55.7 fL (36.4-46.3); Red Blood Count 3.38 M/uL (4.2-5.4); White Blood Count 5.74 K/uL (4.8-10.8)
[2019-02-04 07:59] LABS: BUN Creatinine Ratio 10.7 (10-20); Calcium 9.2 mg/dl (8.5-10.1); Creatinine Clr Calc Pharmacy 73.1 ml/min; Est GFR (Non-African American) 84.5; Potassium 3.6 mmol/L (3.5-5.1)
--- NOTE | 2019-02-04 08:44 | Anesthesiology Consultation ---
Date of Service February 04, 2019 Assessment & Plan (1) Encounter for pre-operative examination: Chart Review Chart Review: Acceptable Risk for Surgery Consults Requested none ASA ASA3 Proposed Anesthesia Anesthesia Type: MAC Risk / Benefits Reviewed With: PT / POA / Parent / Guardian, Accepts Plan and Informed Consent Obtained History Surgery Operation Date: 02/04/19 16:30 Proposed Procedures p Colonoscopy EGD Dr. Eugenio Becker, DO Height/Weight Height: 5 ft 3 in Weight: 68.5 kg Allergies Allergy/AdvReac Type Severity Reaction Status Date / Time amoxicillin Allergy Mild RASH Verified 02/02/19 12:53 gluten Allergy Mild celiac's Verified 02/02/19 12:53 disease wheat Allergy Mild celiac's Verified 02/02/19 12:53 disease Medications Home Medications Medication Instructions Recorded Confirmed Last Taken cyanocobalamin (vitamin B-12) 500 500 mcg PO QAM tab 10/02/18 02/02/19 11/07/18 08:00 mcg tablet aspirin 81 mg tablet,delayed 81 mg PO QAM 12/04/18 02/02/19 Unknown release ascorbic acid (vitamin C) 500 mg 500 mg PO QAM cap 01/03/19 02/02/19 Unknown capsule docusate sodium [Colace] 100 mg PO BID 01/07/19 02/02/19 Unknown ferrous sulfate 325 mg (65 mg 325 mg PO BID tab 01/15/19 02/02/19 Unknown iron) tablet acetaminophen [Tylenol Extra 500 - 1,000 mg PO Q6H PRN 01/31/19 02/02/19 02/01/19 Strength] levothyroxine 88 mcg PO QAM 01/31/19 02/02/19 Unknown pantoprazole 40 mg PO BID 01/31/19 02/02/19 Unknown Active Medications Generic Name Dose Route Start Last Admin Trade Name Freq PRN Reason Stop Dose Admin Acetaminophen 500 - 1,000 mg 02/02/19 15:34 02/02/19 21:08 Tylenol PO 03/04/19 15:33 500 mg Q6H PRN Administration Pain Ascorbic Acid 500 mg 02/03/19 09:00 02/03/19 08:44 Vitamin C PO 03/05/19 08:59 500 mg QAM ROSANNA Administration Aspirin 81 mg 02/03/19 09:00 02/03/19 08:44 Ecotrin Ectab PO 03/05/19 08:59 81 mg QAM ROSANNA Administration Cyanocobalamin 500 mcg 02/03/19 09:00 02/03/19 08:44 Vitamin B-12 PO 03/05/19 08:59 500 mcg QAM ROSANNA Administration Docusate Sodium 100 mg 02/02/19 21:00 02/03/19 21:07 Colace PO 03/04/19 20:59 100 mg BID ROSANNA Administration Ferrous Sulfate 325 mg 02/02/19 21:00 02/03/19 21:08 Feosol PO 03/04/19 20:59 325 mg BID ROSANNA Administration Lactated Ringer's 1,000 mls @ 80 mls/hr 02/03/19 12:30 02/04/19 02:04 Lr IV 03/05/19 12:29 80 mls/hr .[id number] ROSANNA Administration Levothyroxine Sodium 88 mcg 02/03/19 06:30 02/04/19 06:30 Synthroid PO 03/05/19 06:29 88 mcg DAILYBB ROSANNA Administration Pantoprazole Sodium 40 mg 02/02/19 21:00 02/03/19 21:07 Protonix PO 03/04/19 20:59 40 mg BID ROSANNA Administration NPO Date Last Intake of Fluids: 02/04/19 Time Last Intake of Fluids: 02:45 Date Last Intake of Solids: 02/02/19 Time Last Intake of Solids: 10:00 Past Medical History Medical History Adult celiac disease (Chronic) confirmed via blood test only Anxiety PANIC ATTACKS X 2 EPISODES THIS YEAR Breast cyst (Chronic) Constipation Depression with anxiety (Chronic) Diverticulosis (Chronic) Fatigue (Chronic) Generalized weakness Moses's thyroiditis (Chronic) History of recent blood transfusion 01/17/2019 for hemoglobin of 7.4 Hypothyroidism Internal hemorrhoids (Chronic) Iron deficiency anemia (Chronic) Iron deficiency anemia secondary to blood loss (chronic) Osteoarthritis Solitary thyroid nodule Submucous leiomyoma of uterus (Resolved) Exercise / Class Metabolic Activity II 4-5 Yardwork/Stairs/Walk up hill Past Family History Family History Mother Diabetes Family history of diabetes mellitus Coronary heart disease S/P triple vessel bypass Sister Family history of diabetes mellitus Other No family history of adverse response to anesthesia Past Surgical History Surgical History H/O breast surgery puncture aspiration of cyst History of colonoscopy History of tooth extraction History of total left hip replacement Hx of biopsy biopsy thyroid using percutaneous core needle Past Anesthesia History No Hx of Anesthesia Complications and No Family Hx of Anesthesia Complications History of PONV No Hx of PONV and No Hx of Motion Sickness Social History Smoking Status: Never smoker Do You Dip or Chew Tobacco: No Hx Alcohol Use: No Hx Substance Use: No substance use type: does not use Physical Exam Vital Signs Last Vital Signs Temp 98.2 F 02/04/19 10:11 Pulse 75 02/04/19 10:11 Resp 18 02/04/19 10:11 BP 152/87 H 02/04/19 10:11 Pulse Ox 97 02/04/19 10:11 ENMT Mouth: no dentition abnormality Thyromental Distance: > or= 3.5 Finger Breadths Mallampati Class: II Neck normal visual inspection Respiratory normal respiratory effort Auscultation: lungs clear to auscultation bilaterally Cardiovascular Rate/Rhythm: regular rate and regular rhythm Testing Laboratory Results 02/04/19 07:10 02/04/19 07:10 Urine Color Yellow 02/02/19 12:12 Urine Appearance Clear (Clear) 02/02/19 12:12 Urine pH 5.5 (4.5-7.5) 02/02/19 12:12 Ur Specific [place] 1.009 (1.000-1.030) 02/02/19 12:12 Urine Protein Negative (Negative) 02/02/19 12:12 Urine Glucose (UA) Negative (Negative) 02/02/19 12:12 Urine Ketones Negative (Negative) 02/02/19 12:12 Urine Nitrite Negative (Negative) 02/02/19 12:12 Ur Leukocyte Esterase Negative (Negative) 02/02/19 12:12 Blood Type O Positive 02/02/19 12:11 Antibody Screen NEGATIVE 02/02/19 12:11 Electrocardiogram Date: 02/02/19 Findings: + NSR @ (71 bpm)
--- NOTE | 2019-02-04 09:10 | History & Physical Bridge Note ---
Date of Service February 04, 2019 History & Physical Bridge Note I have examined the patient, reviewed the History & Physical and in the interval since the performance of the History & Physical I have noted the following changes of clinical significance: H&H was improved after 2 units PRBCs and was noted to be 9.8/30.8 today. States dizziness has improved. Tolerated bowel prep. Slight nausea but no vomiting. Passing brown liquid mixed with blood. Continues with RLQ pain/tenderness. A/P: RLQ pain, rectal bleeding and acute blood loss anemia. 1. NPO. 2. Proceed with EGD and colonoscopy by Dr. Becker today. 3. Continue Pantoprazole 40 mg BID. 4. Additional recommendations pending results of testing. Supervising Physician Co-Signing Physician Notes Agree with JETT Bates as above Abd: Soft, tender RLQ, ND, +BS Continue current therapy Proceed with EGD and colonoscopy now
[2019-02-04] MEDS ORDERED: PROPOFOL IV EMULSION 10 MG/ML 20 ML VIAL IV ONE (10:14)
[2019-02-04] MEDS ORDERED: LIDOCAINE HCL 2% 2 ML VIAL/AMP(20MG/ML) INFIL ONE (10:14)
--- NOTE | 2019-02-04 10:18 | Progress Note ---
DATE: 02/04/2019 SUBJECTIVE: Mrs. Sorenson says that she is feeling relatively well, but she still has some right lower quadrant abdominal discomfort. Occasionally, she feels somewhat swimmy lightheaded. In general, however, she feels better since she has gotten her 4 unit blood transfusion. She was continuing to have melena prior to her admission to the hospital. She has been prepped for colonoscopy and EGD. With the prep, she thinks that she did see some bright red blood in her stool. She denies any nausea or vomiting at the current time. She has had no arnav abdominal pain other than the right lower quadrant tenderness. She has had a [employer] evaluation for that and does have a uterine fibroid, but no other significant abnormalities. Additionally, she had a Holter monitor done as an outpatient. That showed some frequent premature atrial contractions and apparent premature ventricular contractions as well as an occasional run of wide complex tachycardia concerning for possible ventricular tachycardia but also possibly aberrant conduction. OBJECTIVE: GENERAL: When seen today by me, she appeared relatively well. She was lying comfortably in bed. VITAL SIGNS: Her blood pressure 130/76, her pulse 69 and regular, respiratory rate 16, her pulse ox 95% on room air. She is afebrile (36.7). SKIN: Shows normal skin turgor. She has no rash or infiltrative skin disease. She has no petechiae, purpura, or ecchymoses. She has no palpable lymphadenopathy. HEAD: Grossly normal. EYES: Grossly normal. She has no conjunctival icterus. EARS, NOSE, MOUTH, AND THROAT: All unremarkable. Oral mucous membranes are moist. NECK: Supple. She has no jugular venous distention, carotid bruit or thyromegaly. CHEST: Clear to auscultation. CARDIAC: Shows a regular rhythm. S1 and S2 are normal. I hear no murmur or gallop. ABDOMEN: Shows some minimal tenderness in the right lower quadrant. There is no guarding or rebound. Bowel sounds are normal. EXTREMITIES: Show no cyanosis, clubbing or peripheral edema. Peripheral pulses are intact. NEUROLOGIC: Shows no lateralizing changes. PERTINENT LABORATORY WORK: From today shows a white count of 5740. Her hemoglobin is 9.8 with a hematocrit of 30.8. Her platelet count is 287,000. Her clinical chemistries from today show a sodium of 143 mmol/L, potassium 3.6 mmol/L, chloride is 112 mmol/L, and CO2 content 25 mmol/L. Her BUN is 8. Her creatinine 0.77. Her serum calcium is 9.2. Her ferritin done yesterday was 48.4, her serum iron was 20. Her iron binding capacity 287. Her transferrin saturation would be less than 10%. ASSESSMENT: Gastrointestinal bleeding, etiology unclear. She describes melena which would strongly suggest this is an upper GI bleed. Her only symptom is a right lower quadrant pain. PLAN: She has been prepped and will be getting both an EGD and colonoscopy today. RECOMMENDATIONS: No changes until those results are known. I will also have Dr. Nina or Dr. Garcia review her Holter monitor to see if further workup for that needs to be done.
--- NOTE | 2019-02-04 11:09 | GI REPORT ---
Patient Name: Marcela Sorenson Procedure Date: 02/04/2019 10:38 AM Date of : 1960 Admit Type: Inpatient Age: 58 Gender: Female Attending MD: Toby Becker DO Procedure: Colonoscopy Providers: Toby Becker DO Referring MD: Heriberto Perdomo Md Indications: Melena Medicines: Monitored Anesthesia Care Complications: No immediate complications. Estimated Blood Loss: Estimated blood loss: none. Procedure: Pre-Anesthesia Assessment: - Prior to the procedure, a History and Physical was performed, and patient medications and allergies were reviewed. The patient's tolerance of previous anesthesia was also reviewed. The risks and benefits of the procedure and the sedation options and risks were discussed with the patient. All questions were answered, and informed consent was obtained. Prior Anticoagulants: The patient has taken aspirin, last dose was 1 day prior to procedure. ASA Grade Assessment: III - A patient with severe systemic disease. After reviewing the risks and benefits, the patient was deemed in satisfactory condition to undergo the procedure. After I obtained informed consent, the scope was passed under direct vision. Throughout the procedure, the patient's blood pressure, pulse, and oxygen saturations were monitored continuously. The Colonoscope was introduced through the anus and advanced to the terminal ileum. The colonoscopy was performed without difficulty. The patient tolerated the procedure well. The quality of the bowel preparation was good. The terminal ileum, ileocecal valve, appendiceal orifice, and rectum were photographed. Findings: The perianal and digital rectal examinations were normal. An infiltrative non-obstructing medium-sized mass was found in the cecum. The mass was non-circumferential. The mass measured twenty cm in length. In addition, its diameter measured thirty mm. Oozing was present. Biopsies were taken with a cold forceps for histology. Non-bleeding internal hemorrhoids were found during retroflexion. The hemorrhoids were small. 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 Biopsied. - Non-bleeding internal hemorrhoids. Recommendation: - Continue present medications. - Await pathology results. - Clear liquid diet. - Refer to a surgeon today. - Perform a CT scan (computed tomography) of chest with contrast, abdomen with contrast and pelvis with contrast today. Toby Becker DO 02/04/2019 11:08:49 AM This report has been signed electronically. Note Initiated On: 02/04/2019 10:38 AM Number of Addenda: 0 I attest to the content of the Intraoperative Record and orders documented therein, exceptions below {[id number]}
--- NOTE | 2019-02-04 11:12 | GI REPORT ---
Patient Name: Marcela Sorenson Procedure Date: 02/04/2019 10:14 AM Date of : 1960 Admit Type: Inpatient Age: 58 Gender: Female Attending MD: Toby Becker DO Procedure: Upper GI endoscopy Providers: Toby Becker DO Referring MD: Heriberto Perdomo Md Indications: Melena Medicines: Monitored Anesthesia Care Complications: No immediate complications. Estimated Blood Loss: Estimated blood loss: none. Procedure: Pre-Anesthesia Assessment: - Prior to the procedure, a History and Physical was performed, and patient medications and allergies were reviewed. The patient's tolerance of previous anesthesia was also reviewed. The risks and benefits of the procedure and the sedation options and risks were discussed with the patient. All questions were answered, and informed consent was obtained. Prior Anticoagulants: The patient has taken aspirin, last dose was 1 day prior to procedure. ASA Grade Assessment: III - A patient with severe systemic disease. After reviewing the risks and benefits, the patient was deemed in satisfactory condition to undergo the procedure. After obtaining informed consent, the endoscope was passed under direct vision. Throughout the procedure, the patient's blood pressure, pulse, and oxygen saturations were monitored continuously. The scope was introduced through the mouth, and advanced to the second part of duodenum. The upper GI endoscopy was accomplished without difficulty. The patient tolerated the procedure well. Findings: The examined esophagus was normal. A small hiatal hernia was present. Localized mild inflammation characterized by erosions was found on the greater curvature of the stomach and in the gastric antrum. Biopsies were taken with a cold forceps for histology. The examined duodenum was normal. Biopsies for histology were taken with a cold forceps for evaluation of celiac disease. Impression: - Normal esophagus. - Small hiatal hernia. - Gastritis. Biopsied. - Normal examined duodenum. Biopsied. Recommendation: - Resume previous diet. - Continue present medications. - Await pathology results. - Return to primary care physician as previously scheduled. Toby Becker DO 02/04/2019 11:11:42 AM This report has been signed electronically. Note Initiated On: 02/04/2019 10:14 AM Number of Addenda: 0 I attest to the content of the Intraoperative Record and orders documented therein, exceptions below {[id number]}
[2019-02-04] MEDS ORDERED: ondansetron HCL 8 MG in DEXTROSE 5% 50 ML IV PRN (12:14)
--- NOTE | 2019-02-04 12:15 | Anesthesiology Progress Note ---
Date of Service February 04, 2019 Anesthesia Post Procedure Vital Signs Vital Signs: Temp Pulse Pulse Resp BP BP BP 02/04/19 11:57 98.1 F 86 18 129/84 02/04/19 11:34 65 16 123/86 02/04/19 11:19 67 16 124/64 02/04/19 11:04 90 16 119/79 02/04/19 10:11 98.2 F 75 18 152/87 H 02/04/19 08:00 67 02/04/19 07:05 98.1 F 69 16 130/76 02/04/19 04:07 98.4 F 74 16 125/69 02/03/19 23:05 98.2 F 74 16 124/68 02/03/19 23:00 73 02/03/19 19:14 97.9 F 75 18 126/76 02/03/19 18:47 98.2 F 77 20 112/70 02/03/19 18:32 98.2 F 79 20 118/74 02/03/19 17:32 98.2 F 83 20 133/74 02/03/19 17:02 98.2 F 80 20 123/70 02/03/19 16:47 98.2 F 80 20 133/74 02/03/19 16:29 98.2 F 75 20 131/74 02/03/19 15:41 98.2 F 72 20 113/68 02/03/19 14:48 98.2 F 74 20 112/68 02/03/19 14:20 76 02/03/19 13:48 98.2 F 78 20 109/68 02/03/19 13:18 98.2 F 76 20 110/67 02/03/19 13:03 98.2 F 76 20 106/65 02/03/19 12:44 98.2 F 78 20 105/62 Pulse Ox 02/04/19 11:57 95 02/04/19 11:34 95 02/04/19 11:19 95 02/04/19 11:04 95 02/04/19 10:11 97 02/04/19 08:00 02/04/19 07:05 95 02/04/19 04:07 95 02/03/19 23:05 95 02/03/19 23:00 02/03/19 19:14 96 02/03/19 18:47 96 02/03/19 18:32 96 02/03/19 17:32 96 02/03/19 17:02 96 02/03/19 16:47 96 02/03/19 16:29 96 02/03/19 15:41 96 02/03/19 14:48 94 02/03/19 14:20 02/03/19 13:48 94 02/03/19 13:18 94 02/03/19 13:03 94 02/03/19 12:44 94 Pain Intensity Right Abdomen: Pain Intensity: 4 Transfer of Care Handoff Completed per policy Notes Mental Status: alert / awake / arousable and participated in evaluation Patient Amnestic to Procedure: Yes Nausea / Vomiting: adequately controlled Pain: adequately controlled Airway Patency, RR, SpO2: stable & adequate BP & HR: stable & adequate Hydration State: stable & adequate Anesthetic Complications: no major complications apparent and Pt Satisfied with anesthetic care
--- NOTE | 2019-02-04 12:22 | Hospitalist Progress Note ---
Date of Service February 04, 2019 Assessment & Plan (1) GI bleed: Received 2 units of PRBCs on 02/03 for hgb down to 7. Has not had prior issues with anemia since stopping gluten in 03/2017. - EGD/colo on 02/04 showed cecal mass. - CT a/p ordered; surgery consulted - Continue PPI PO BID (2) Celiac disease: Has some indiscretions occasionally, but overall very compliant with non- gluten diet. - Per GI (3) Moses's thyroiditis: TSH on 02/02 was 0.7. - Continue Synthroid 88 mcg (4) DVT prophylaxis: SCDs - Given cecal mass and possible need for surgery. Subjective Feels like she occasionally gets a "funny" sensation in the head that improves spontaneously. Has been having lots of darker BMs mixed with some bright red. Minimal nausea and no emesis with the prep. Reports no fevers/chills, chest pain, shortness of breath, abdominal pain. Physical Exam Constitutional: WD/WN, vitals as above Eyes: EOM intact bilaterally; no conjunctival abnormality ENMT: external ear and nose normal, oropharynx normal Neck: trachea midline, no thyromegaly normal visual inspection Respiratory: normal respiratory effort, lungs clear to auscultation no respiratory distress Cardiovascular: RRR, no murmur, no edema Gastrointestinal (Abdomen): Inspection/Auscultation: abdomen normal to inspection; abdomen not distended Musculoskeletal: no cyanosis or clubbing, extremities motor strength 5/5 Skin: no rashes, warm and dry Neurologic: moves all extremities and awake Psychiatric: Orientation: alert, oriented to person and cooperative Results & Data Vital Signs (Past 12 Hours) Vital Signs Temp Pulse Pulse Resp BP BP Pulse Ox 02/04/19 11:57 36.7 C 86 18 129/84 95 02/04/19 11:34 65 16 123/86 95 02/04/19 11:19 67 16 124/64 95 02/04/19 11:04 90 16 119/79 95 02/04/19 10:11 36.8 C 75 18 152/87 H 97 02/04/19 08:00 67 02/04/19 07:05 36.7 C 69 16 130/76 95 02/04/19 04:07 36.9 C 74 16 125/69 95 PG Care Time/CCT Total # of Minutes Spent Total Time Spent with Patient: Total time spent is greater than 50% in coordination of care (as documented) at patient's floor/unit and/or counseling patient: (1) GI bleed GI bleed type/associated pathology: unspecified gastrointestinal hemorrhage type Qualified Code(s): K92.2 - Gastrointestinal hemorrhage, unspecified
[2019-02-04] MEDS: DOCUSATE SODIUM 100 MG CAP PO SCH ×2 (12:58→20:23)
[2019-02-04] MEDS: ASCORBIC ACID 500 MG TAB PO SCH (12:58)
[2019-02-04] MEDS: FERROUS SULFATE 325 MG TAB PO SCH (12:58)
[2019-02-04] MEDS: ASPIRIN 81 MG ECTAB PO SCH (12:58)
[2019-02-04] MEDS: CYANOCOBALAMIN 500 MCG TABLET (VITAMIN B-12) PO SCH (12:59)
[2019-02-04] MEDS: PANTOprazole 40 MG TAB PO SCH ×2 (12:59→20:23)
[2019-02-04] MEDS ORDERED: IRON SUCROSE 200 MG in 0.9 % SODIUM CHLORIDE 100 ML IV ONE (13:00)
[2019-02-04] MEDS ORDERED: IOVERSOL 100ml IV PRN (14:16)
--- NOTE | 2019-02-04 14:21 | Anesthesiology Consultation ---
Date of Service February 04, 2019 Assessment & Plan (1) Encounter for pre-operative examination: Chart Review Chart Review: Acceptable Risk for Surgery and Patient NOT seen in Pre Admission Testing Consults Requested none History Surgery Operation Date: 02/04/19 16:30 Proposed Procedures p Colonoscopy EGD Dr. Becker - Toby Becker, DO Operation Date: 02/05/19 12:00 Proposed Procedures p Laparoscopic Right Hemicolectomy - Matthew Ríos, DO Height/Weight Height: 5 ft 3 in Weight: 68.5 kg Allergies Allergy/AdvReac Type Severity Reaction Status Date / Time amoxicillin Allergy Mild RASH Verified 02/02/19 12:53 gluten Allergy Mild celiac's Verified 02/02/19 12:53 disease wheat Allergy Mild celiac's Verified 02/02/19 12:53 disease Medications Home Medications Medication Instructions Recorded Confirmed Last Taken cyanocobalamin (vitamin B-12) 500 500 mcg PO QAM tab 10/02/18 02/02/19 11/07/18 08:00 mcg tablet aspirin 81 mg tablet,delayed 81 mg PO QAM 12/04/18 02/02/19 Unknown release ascorbic acid (vitamin C) 500 mg 500 mg PO QAM cap 01/03/19 02/02/19 Unknown capsule docusate sodium [Colace] 100 mg PO BID 01/07/19 02/02/19 Unknown ferrous sulfate 325 mg (65 mg 325 mg PO BID tab 01/15/19 02/02/19 Unknown iron) tablet acetaminophen [Tylenol Extra 500 - 1,000 mg PO Q6H PRN 01/31/19 02/02/19 02/01/19 Strength] levothyroxine 88 mcg PO QAM 01/31/19 02/02/19 Unknown pantoprazole 40 mg PO BID 01/31/19 02/02/19 Unknown Active Medications Generic Name Dose Route Start Last Admin Trade Name Freq PRN Reason Stop Dose Admin Acetaminophen 500 - 1,000 mg 02/02/19 15:34 02/02/19 21:08 Tylenol PO 03/04/19 15:33 500 mg Q6H PRN Administration Pain Cyanocobalamin 500 mcg 02/03/19 09:00 02/04/19 12:59 Vitamin B-12 PO 03/05/19 08:59 Not Given QAM ROSANNA Docusate Sodium 100 mg 02/02/19 21:00 02/04/19 12:58 Colace PO 03/04/19 20:59 Not Given BID ROSANNA Ioversol 94 ml 02/04/19 14:16 02/04/19 14:16 Optiray 320 100ml IV 02/08/19 14:15 94 ml ONCE PRN Administration Interaction Checking Levothyroxine Sodium 88 mcg 02/03/19 06:30 02/04/19 06:30 Synthroid PO 03/05/19 06:29 88 mcg DAILYBB ROSANNA Administration Pantoprazole Sodium 40 mg 02/02/19 21:00 02/04/19 12:59 Protonix PO 03/04/19 20:59 Not Given BID ROSANNA NPO Date Last Intake of Fluids: 02/04/19 Time Last Intake of Fluids: 02:45 Date Last Intake of Solids: 02/02/19 Time Last Intake of Solids: 10:00 Past Medical History Medical History (Updated 02/04/19 @ 14:22 by Ben Hernández MD) Adult celiac disease (Chronic) confirmed via blood test only Anxiety PANIC ATTACKS X 2 EPISODES THIS YEAR Breast cyst (Chronic) Constipation Depression with anxiety (Chronic) Diverticulosis (Chronic) Fatigue (Chronic) Moses's thyroiditis (Chronic) History of recent blood transfusion 01/17/2019 for hemoglobin of 7.4 Hypothyroidism Internal hemorrhoids (Chronic) Iron deficiency anemia (Chronic) Iron deficiency anemia secondary to blood loss (chronic) Osteoarthritis Solitary thyroid nodule Submucous leiomyoma of uterus (Resolved) Past Family History Family History Mother Diabetes Family history of diabetes mellitus Coronary heart disease S/P triple vessel bypass Sister Family history of diabetes mellitus Other No family history of adverse response to anesthesia Past Surgical History Surgical History (Updated 02/04/19 @ 14:24 by Ben Hernández MD) H/O breast surgery puncture aspiration of cyst History of colonoscopy History of esophagogastroduodenoscopy (EGD) MAC History of tooth extraction History of total left hip replacement Hx of biopsy biopsy thyroid using percutaneous core needle Social History Smoking Status: Never smoker Do You Dip or Chew Tobacco: No Hx Alcohol Use: No Hx Substance Use: No substance use type: does not use Physical Exam Vital Signs Last Vital Signs Temp 36.8 C 02/04/19 13:44 Pulse 68 02/04/19 13:44 Resp 18 02/04/19 13:44 BP 129/79 02/04/19 13:44 Pulse Ox 98 02/04/19 13:44 Testing Laboratory Results 02/04/19 07:10 02/04/19 07:10 Urine Color Yellow 02/02/19 12:12 Urine Appearance Clear (Clear) 02/02/19 12:12 Urine pH 5.5 (4.5-7.5) 02/02/19 12:12 Ur Specific [place] 1.009 (1.000-1.030) 02/02/19 12:12 Urine Protein Negative (Negative) 02/02/19 12:12 Urine Glucose (UA) Negative (Negative) 02/02/19 12:12 Urine Ketones Negative (Negative) 02/02/19 12:12 Urine Nitrite Negative (Negative) 02/02/19 12:12 Ur Leukocyte Esterase Negative (Negative) 02/02/19 12:12 Blood Type O Positive 02/02/19 12:11 Antibody Screen NEGATIVE 02/02/19 12:11 Electrocardiogram Date: 02/02/19 Findings: + NSR @ (71 bpm) Chest X-Ray Date: 02/02/19 [place] [phone] XRay Report Patient: TAMANNA VÁZQUEZ AAdmit Date: 02/02/19 MR#: [id number]: [id number] [facility] Acct ID:[id number]: Date: 1960[facility] Zip: [place] [address] Age: 58Location: ED Sex: F Room/Bed: Att Phy:Diagnosis: BLOOD PRESSURE - HEART RATE UP Sofi Phy: Yasir King MDService Date: 02/02/19 Fam Phy:Interpreting Phy: Jass Huertas MD Admit Phy: Ordering Phy: Bijan Otero M.D. cc: ~ SINGLE VIEW CHEST CLINICAL HISTORY: Generalized weakness. FINDINGS: An AP, portable, upright chest radiograph is obtained. No prior studies are available for comparison at the time of dictation. The examination is degraded by portable technique and patient rotation. The cardiomediastinal silhouette is unremarkable. There is mild bibasilar atelectasis. The lungs and pleural spaces are otherwise clear. No pneumothorax is seen. The bony thorax is grossly intact. IMPRESSION: No active disease in the chest. Electronically signed by: Jass Huertas M.D. 02/02/2019 12:26 PM Dictated: 02/02/19 1226 Transcribed: 02/02/19 1226
--- NOTE | 2019-02-04 14:41 | CT Scan Report ---
CT chest w con CLINICAL HISTORY: 58 years-old Female presenting with cecal mass. TECHNIQUE: Multidetector CT imaging of the chest was performed after the administration of intravenou s contrast. IV contrast: 94 mL of Optiray 320. One or more dose lowering techniques were used consist ent with the principles of ALARA (as low as reasonably achievable), including automatic exposure cont rol, mA or kV adjustment to individual patient size, and/or use of iterative reconstruction. COMPARISON: Chest x-ray from 02/02/2019. CT DOSE (mGy.cm): The estimated cumulative dose is 559.75. FINDINGS: Signal Maintenance Technician topogram: Orthopedic hardware. Soft tissues: Thyroid diffusely enlarged. No axillary, supraclavicular, mediastinal, or hilar lymphad enopathy. Atherosclerosis of the aorta. Normal heart size. No pericardial or pleural effusion. Upper abdomen normal. Lungs and airways: No pneumothorax. Central airways patent. Pulmonary arteries are not significantly enlarged relative to adjacent bronchi. No interlobular septal thickening. Minimal dependent changes l ikely atelectasis. Musculoskeletal: Degenerative changes of the spine. IMPRESSION: 1. No evidence of intrathoracic metastatic disease. Electronically signed by: Cale Alba M.D. 02/04/2019 2:40 PM
--- NOTE | 2019-02-04 14:53 | CT Scan Report ---
CT abd pelvis oral and IV con CLINICAL HISTORY: cecal mass COMPARISON STUDY: 02/02/2019 TECHNIQUE: The patient was scanned in a dynamic helical fashion during intravenous administration of 94 cc of Optiray 320 A dose lowering technique was utilized adhering to the principles of ALARA. CT DOSE: 559.75 mGy.cm FINDINGS: Lower chest: There are mild basilar atelectatic changes Liver: There are a few tiny subcentimeter hepatic hypodensities, the largest of which measures 8 mm. These remain similar to the prior study Gallbladder: Unremarkable. Spleen: Normal in size and attenuation. Pancreas: Unremarkable. Adrenal glands: Unremarkable. Kidneys: There is symmetric renal cortical enhancement. The kidneys are normal in size without hydron ephrosis. Bowel: There are no transition zones to indicate bowel obstruction. There is a filling defect within the ascending colon, just proximal to the hepatic flexure likely representing enteric contents. There is abnormal thickening of the cecum with mild infiltration of the pericecal fat. The cecal lesion me asures in excess of 5 cm. This could be inflammatory or neoplastic. Correlation with recent biopsy re sults are recommended. Peritoneum: There is no intraperitoneal free air or abdominal ascites. Vasculature: The abdominal aorta is normal in course and caliber. Adenopathy: There are small indeterminate pericecal lymph nodes. Pelvic viscera: There is a suspected 5 mm bladder calculus. Skeletal structures: No destructive lesions are visualized. There is a total left hip arthroplasty. IMPRESSION: 1. No evidence of bowel obstruction. No evidence of free air 2. Abnormal bowel wall thickening involving the cecum with mild infiltration of pericecal fat. In add ition there are small indeterminate pericecal lymph nodes. The findings could be neoplastic or inflam matory. Clinical correlation, and correlation with recent biopsy results are recommended. Electronically signed by: Derik Pizarro M.D. 02/04/2019 2:52 PM
--- NOTE | 2019-02-04 16:54 | Surgery Consultation ---
Date of Consultation February 04, 2019 Assessment & Plan (1) Cecum mass: we discussed her diagnosis. CT essentially negative . we discussed this will need to be surgically removed and since she is already prepped we should proceed this admission. we discussed the risks of the surgery ( blee ding/infection/dvt/pe/mi/cva/ anastomotic leaks or stictures/ injury to another organ such as bowel or ureter etc.... will attempt to perform laparoscopically but may need to open. questions answered. pt agreeable. will proceed tomorrow with laparoscopic possible open right hemicolectomy. (2) Anemia: History of Present Illness Attending Physician: Heriberto Perdomo MD History of Present Illness pt admitted with anemia requiring transfusion. Has also been seeing some blood in her stool and occasionally melena for several months. colonoscopy today reveals a cecal mass. Allergies Allergy/AdvReac Type Severity Reaction Status Date / Time amoxicillin Allergy Mild RASH Verified 02/02/19 12:53 gluten Allergy Mild celiac's Verified 02/02/19 12:53 disease wheat Allergy Mild celiac's Verified 02/02/19 12:53 disease Home Medications Home Medications Medication Instructions Recorded Confirmed Type cyanocobalamin (vitamin B-12) 500 500 mcg PO QAM tab 10/02/18 02/02/19 History mcg tablet aspirin 81 mg tablet,delayed 81 mg PO QAM 12/04/18 02/02/19 History release ascorbic acid (vitamin C) 500 mg 500 mg PO QAM cap 01/03/19 02/02/19 History capsule docusate sodium [Colace] 100 mg PO BID 01/07/19 02/02/19 History ferrous sulfate 325 mg (65 mg 325 mg PO BID tab 01/15/19 02/02/19 History iron) tablet acetaminophen [Tylenol Extra 500 - 1,000 mg PO Q6H PRN 01/31/19 02/02/19 History Strength] levothyroxine 88 mcg PO QAM 01/31/19 02/02/19 History pantoprazole 40 mg PO BID 01/31/19 02/02/19 History Patient History Medical History (Updated 02/04/19 @ 16:51 by Matthew Ríos DO) Adult celiac disease (Chronic) confirmed via blood test only Anxiety PANIC ATTACKS X 2 EPISODES THIS YEAR Breast cyst (Chronic) Constipation Depression with anxiety (Chronic) Diverticulosis (Chronic) Fatigue (Chronic) Moses's thyroiditis (Chronic) History of recent blood transfusion 01/17/2019 for hemoglobin of 7.4 Hypothyroidism Internal hemorrhoids (Chronic) Iron deficiency anemia (Chronic) Iron deficiency anemia secondary to blood loss (chronic) Osteoarthritis Solitary thyroid nodule Submucous leiomyoma of uterus (Resolved) Surgical History (Updated 02/04/19 @ 14:24 by Ben Hernández MD) H/O breast surgery puncture aspiration of cyst History of colonoscopy History of esophagogastroduodenoscopy (EGD) MAC History of tooth extraction History of total left hip replacement Hx of biopsy biopsy thyroid using percutaneous core needle Family History Mother Diabetes Family history of diabetes mellitus Coronary heart disease S/P triple vessel bypass Sister Family history of diabetes mellitus Other No family history of adverse response to anesthesia Social History Preferred Language: Armenian Communication Ability: Effective Senior Software Manager Required: No Beliefs That Will Affect Care: None marital status: Current Living Situation: Spouse Feels Safe at Home: Yes Smoking Status: Never smoker Second Hand Exposure: No ; Hx Alcohol Use: No Hx Substance Use: No Physical Activity Frequency: Does not Exercise Review of Systems Review of Systems: All systems reviewed & are unremarkable except as noted in HPI & below Physical Exam Constitutional: WD/WN, vitals as above no acute distress and not ill appearing Eyes: PERRL, conjunctivae normal, anicteric sclerae EOM intact bilaterally ENMT: external ear and nose normal, oropharynx normal Ears: no hearing impairment Neck: trachea midline, no thyromegaly Respiratory: normal respiratory effort; no respiratory distress and does not use accessory muscles Cardiovascular: Rate/Rhythm: regular rate and regular rhythm Gastrointestinal (Abdomen): normal bowel sounds, soft, nontender, no hepatosplenomegaly Skin: no rashes, warm and dry Psychiatric: Orientation: alert, oriented x 3 and cooperative Results & Data Vital Signs (Past 12 Hours) Vital Signs Temp Pulse Pulse Resp BP BP Pulse Ox 02/04/19 15:14 36.6 C 86 18 142/87 H 98 02/04/19 14:25 36.8 C 66 16 115/62 99 02/04/19 14:00 36.8 C 68 18 111/69 98 02/04/19 13:44 36.8 C 68 18 129/79 98 02/04/19 12:55 36.6 C 66 20 146/77 H 99 02/04/19 11:57 36.7 C 86 18 129/84 95 02/04/19 11:34 65 16 123/86 95 02/04/19 11:19 67 16 124/64 95 02/04/19 11:04 90 16 119/79 95 02/04/19 10:11 36.8 C 75 18 152/87 H 97 02/04/19 08:00 67 02/04/19 07:05 36.7 C 69 16 130/76 95 PG Care Time/CCT Total # of Minutes Spent Total Time Spent with Patient: Total time spent is greater than 50% in coordination of care (as documented) at patient's floor/unit and/or counseling patient: (1) Anemia Anemia type: unspecified type Qualified Code(s): D64.9 - Anemia, unspecified
[2019-02-05] MEDS ORDERED: CLINDAMYCIN 900 MG in DEXTROSE 5% 50 ML IV SCH (06:00)
[2019-02-05 06:21] LABS: Hematocrit (blood only) 30.3 % (37-47); Hemoglobin 9.8 g/dL (12.0-16.0); Mean Corpuscular Hemoglobin 29.7 pg (25-34); Mean Corpuscular Hgb Conc 32.3 g/dL (32-36); Mean Corpuscular Volume 91.8 fL (80-100); Mean Platelet Volume 9.8 fL (7.4-10.4); Platelet Count 289 K/uL (130-400); RDW Coefficient of Variation 16.6 % (11.5-14.5); RDW Standard Deviation 55.4 fL (36.4-46.3); White Blood Count 6.38 K/uL (4.8-10.8)
[2019-02-05 06:56] LABS: Calcium 8.7 mg/dl (8.5-10.1); Creatinine Clr Calc Pharmacy 69.1 ml/min; Est GFR (African American) 93.5; Est GFR (Non-African American) 80.7; Magnesium 1.9 mg/dl (1.8-2.4); Phosphorus 4.1 mg/dl (2.5-4.9); Potassium 3.7 mmol/L (3.5-5.1)
[2019-02-05] MEDS: PANTOprazole 40 MG TAB PO SCH ×2 (07:21→21:01)
[2019-02-05] MEDS: LEVOTHYROXINE SODIUM 88 MCG TABLET PO SCH (07:21)
[2019-02-05] MEDS ORDERED: SODIUM CHLORIDE 0.65% NA SOLN 45 ML (OCEAN) ONE (07:24)
[2019-02-05] MEDS: ACETAMINOPHEN 500 MG TAB PO PRN (11:01)
[2019-02-05] MEDS ORDERED: BUPIVACAINE/EPINEPHRINE 0.5% MPF 1:200,000 10 ML VIAL ONE (11:03)
--- NOTE | 2019-02-05 11:59 | History & Physical Bridge Note ---
Date of Service February 05, 2019 History & Physical Bridge Note I have examined the patient, reviewed the History & Physical and in the interval since the performance of the History & Physical I have noted the following changes of clinical significance: no changes noted
[2019-02-05] MEDS ORDERED: KETOROLAC 30 MG/ML VIAL IV PRN (12:15)
[2019-02-05] MEDS ORDERED: ATROPINE SULFATE 0.1 MG/ML 10ML SYR IV PRN (12:15)
[2019-02-05] MEDS ORDERED: ONDANSETRON INJ 2 MG/ML 2 ML VIAL IV PRN (12:15)
[2019-02-05] MEDS ORDERED: fentaNYL citrate 100 MCG/2 ML VIAL ONE (12:17)
[2019-02-05] MEDS ORDERED: MIDAZOLAM HCL 1 MG/ML 2ML VIAL ONE (12:17)
[2019-02-05] MEDS ORDERED: LIDOCAINE HCL 2% 2 ML VIAL/AMP(20MG/ML) INFIL ONE (12:20)
[2019-02-05] MEDS ORDERED: ROCURONIUM BROMIDE 10 MG/ML 5 ML VIAL ONE ×2 (12:22→14:37)
[2019-02-05] MEDS ORDERED: DEXAMETHASONE SOD INJ 4 MG/ML VIAL ONE (12:22)
[2019-02-05] MEDS ORDERED: PROPOFOL IV EMULSION 10 MG/ML 20 ML VIAL IV ONE (12:22)
[2019-02-05] MEDS ORDERED: ONDANSETRON INJ 2 MG/ML 2 ML VIAL ONE (12:22)
[2019-02-05] MEDS ORDERED: SCOPOLAMINE 1.5 MG TDSY ONE (12:38)
[2019-02-05] MEDS ORDERED: ePHEDrine sulfate 50 MG/ML AMP ONE (13:44)
[2019-02-05] MEDS ORDERED: SODIUM CHLORIDE 0.9% INJ 10 ML VIAL ONE (13:44)
[2019-02-05] MEDS ORDERED: raNITIdine HCl 25 MG/ML VIAL IV ONE (13:48)
[2019-02-05] MEDS ORDERED: METOCLOPRAMIDE HCL INJ 5 MG/ML 2 ML VIAL ONE (13:48)
[2019-02-05] MEDS ORDERED: PHENYLEPHRINE HCL 10 MG/ML VIAL ONE (14:22)
--- NOTE | 2019-02-05 14:51 | Progress Note ---
DATE: 02/05/2019 RENAL PROGRESS NOTE SUBJECTIVE: The patient was seen in the preop area of the operating room. Yesterday, she did undergo an EGD, which showed some evidence of gastritis. Additionally, she had a colonoscopy, which revealed a large cecal mass that apparently was doing some bleeding. The mass is presumed to be malignant. It was nonobstructive at the current time. A CT scan of her abdomen and pelvis again showed no evidence of bowel obstruction or free air. However, she did have abnormal bowel wall thickening involving the cecum with mild infiltration of the pericecal fat. Additionally, she had a few small indeterminant pericecal lymph nodes. A CT scan of her chest failed to show any evidence of metastatic disease. Dr. Ríos was consulted. He spoke with the patient and they elected to proceed with a hemicolectomy. That will be done in a few minutes from my visit with the patient. Currently, she does not experience any problems with abdominal pain. She has had no other symptoms of GI bleeding. She says that she had a restful night. OBJECTIVE: GENERAL: On physical exam when seen, she was lying quietly in bed. Her was present. VITAL SIGNS: Her blood pressure is 125/75, her pulse is 75 and regular, respiratory rate 18, her pulse ox is 97% on room air. She was afebrile (36.8). SKIN: Showed normal skin turgor. There was no rash or infiltrative skin disease. She had no purpura or petechiae. LYMPHATICS: She has no palpable lymphadenopathy. HEAD: Grossly normal. EYES: Grossly normal. There is no conjunctival icterus. EARS, NOSE, MOUTH, AND THROAT: Unremarkable. Oral mucous membranes are moist. NECK: Supple. She had no jugular venous distention, carotid bruit or thyromegaly. CHEST: Clear to auscultation. CARDIAC: Showed a regular rhythm. S1 and S2 are normal. She had no murmur or gallop. ABDOMEN: Nontender other than some minimal discomfort in the right lower quadrant of her abdomen. Bowel sounds are normal. She has no abdominal bruits. There is no obvious organomegaly or mass. EXTREMITIES: Show no cyanosis, clubbing or peripheral edema. She has no calf tenderness or cord. NEUROLOGIC: Shows no lateralizing changes. PERTINENT LABORATORY WORK: From today shows a white count of 6380. Her hemoglobin is stable at 9.8 with a hematocrit of 30.3. Her platelet count is 289,000. Her clinical chemistries show a sodium of 144 mmol/L, potassium 3.7 mmol/L, chloride is 111 mmol/L, and CO2 content 27 mmol/L. Her BUN is 7 and her creatinine is 0.80. A random blood sugar was 85. Her serum calcium is 8.7, her phosphate is 4.1 and her magnesium is 1.9. ASSESSMENT: Apparent malignancy involving the cecum. She has a few nonspecific lymph nodes seen on CT scan. She will be having a hemicolectomy this afternoon. Dr. Ríos will be doing the surgery. The patient understands the situation as does her . RECOMMENDATIONS: Proceed with surgery. Further therapy will be dictated by the results. I will continue to follow her.
[2019-02-05] MEDS ORDERED: NEOSTIGMINE METHYLSULFATE 5 MG/5 ML SYR ONE (15:10)
[2019-02-05] MEDS ORDERED: GLYCOPYRROLATE 0.2 MG/ML VIAL ONE (15:10)
--- NOTE | 2019-02-05 15:18 | Post Operative Brief Note ---
PG Immediate Post Op with CF Date of Surgery February 05, 2019 Pre & Post Diagnosis Operation Date: 02/04/19 16:30 Pre-Op Diagnosis: ANEMIA Post-Op Diagnosis: anemia, erosive gastritis, hiatal hernia, cecal mass, hemorrhoids Operation Date: 02/05/19 12:00 Pre-Op Diagnosis: Cecum Mass, Anemia Post-Op Diagnosis: Cecum Mass, Anemia I identified the patient and participated in the time-out.: Yes Procedure Operation Date: 02/04/19 16:30 Actual Procedures p EGD Biopsy Cytology(Left) - Toby Becker DO s Colonoscopy Biopsy Cytology(Left) - Toby Becker, DO Operation Date: 02/05/19 12:00 Actual Procedures p Laparoscopic Right Hemicolectomy(Right) - Matthew Ríos DO Surgeon Matthew Ríos DO Greenhouse Laborer suzanne Robertson Estimated Blood Loss 0 Findings Consistent with Post-Op Diagnosis Specimens Specimen Description: A. Right Colon and Terminal Ileum;portion of transverse colon Drains Adamson Catheter and Primo-Gordon Drain
[2019-02-05] MEDS: HYDROmorphone INJ 1 MG/ML SYRINGE IV PRN ×8 (16:03→16:38)
--- NOTE | 2019-02-05 16:45 | Anesthesiology Progress Note ---
Date of Service February 05, 2019 Anesthesia Post Procedure Vital Signs Vital Signs: Temp Pulse Pulse Resp BP Pulse Ox 02/05/19 16:40 67 13 102/60 96 02/05/19 16:30 67 17 111/62 96 02/05/19 16:20 60 20 106/61 97 02/05/19 16:10 59 L 22 105/65 93 02/05/19 16:00 61 17 95/60 L 97 02/05/19 15:50 60 19 116/66 98 02/05/19 15:40 36.5 C 65 16 115/69 97 02/05/19 11:46 36.8 C 75 18 125/75 97 02/05/19 11:18 37.1 C 71 18 123/76 95 02/05/19 08:00 72 02/05/19 07:49 36.7 C 67 20 122/76 95 02/05/19 03:50 36.7 C 73 19 117/69 95 02/04/19 23:21 36.9 C 71 19 128/76 92 02/04/19 22:20 72 02/04/19 19:35 36.7 C 82 18 128/72 96 Pain Intensity Right Abdomen: Pain Intensity: 5 Transfer of Care Handoff Completed per policy Notes Mental Status: alert / awake / arousable Patient Amnestic to Procedure: Yes Nausea / Vomiting: adequately controlled Pain: adequately controlled Airway Patency, RR, SpO2: stable & adequate BP & HR: stable & adequate Hydration State: stable & adequate Anesthetic Complications: no major complications apparent
[2019-02-05] MEDS: CYANOCOBALAMIN 500 MCG TABLET (VITAMIN B-12) PO SCH (17:17)
--- NOTE | 2019-02-05 17:36 | Hospitalist Progress Note ---
Date of Service February 05, 2019 Assessment & Plan (1) GI bleed: Received 2 units of PRBCs on 02/03 for hgb down to 7. Has not had prior issues with anemia since stopping gluten in 03/2017. - EGD/colo on 02/04 showed cecal mass. - S/p right jose-colectomy with Dr. Ríos on 02/05. - Immediately post-op, she is having some abdominal pain, but no rebound. Will treat for now and monitor abdominal exam closely. - Continue PPI PO BID (2) Celiac disease: Has some indiscretions occasionally, but overall very compliant with non- gluten diet. - Per GI (3) Moses's thyroiditis: TSH on 02/02 was 0.7. - Continue Synthroid 88 mcg (4) DVT prophylaxis: SCDs - Given recent surgery. Subjective Very tired and with some abdominal pain after surgery. She also feels hot, though her temp is normal. Reports no fevers/chills, chest pain, shortness of breath, nausea, or vomiting. Physical Exam Constitutional: WD/WN, vitals as above Eyes: EOM intact bilaterally; no conjunctival abnormality ENMT: external ear and nose normal, oropharynx normal Neck: trachea midline, no thyromegaly normal visual inspection Respiratory: normal respiratory effort, lungs clear to auscultation no respiratory distress Cardiovascular: RRR, no murmur, no edema Gastrointestinal (Abdomen): Inspection/Auscultation: + abdominal surgical scar (Drain in LLQ.); abdomen not distended Percussion/Palpation: + abdomen tender and abdomen soft; no guarding and abdomen not rigid Musculoskeletal: no cyanosis or clubbing, extremities motor strength 5/5 Skin: no rashes, warm and dry Neurologic: moves all extremities and awake Psychiatric: Orientation: alert, oriented to person and cooperative Results & Data Vital Signs (Past 12 Hours) Vital Signs Temp Pulse Pulse Resp BP Pulse Ox 02/05/19 16:50 36.4 C L 70 19 103/59 L 97 02/05/19 16:40 67 13 102/60 96 02/05/19 16:30 67 17 111/62 96 02/05/19 16:20 60 20 106/61 97 02/05/19 16:10 59 L 22 105/65 93 02/05/19 16:00 61 17 95/60 L 97 02/05/19 15:50 60 19 116/66 98 02/05/19 15:40 36.5 C 65 16 115/69 97 02/05/19 11:46 36.8 C 75 18 125/75 97 02/05/19 11:18 37.1 C 71 18 123/76 95 02/05/19 08:00 72 02/05/19 07:49 36.7 C 67 20 122/76 95 PG Care Time/CCT Total # of Minutes Spent Total Time Spent with Patient: Total time spent is greater than 50% in coordination of care (as documented) at patient's floor/unit and/or counseling patient: (1) GI bleed GI bleed type/associated pathology: unspecified gastrointestinal hemorrhage type Qualified Code(s): K92.2 - Gastrointestinal hemorrhage, unspecified
[2019-02-05] MEDS: ACETAMINOPHEN 1,000 MG/100 ML VIAL IV SCH (18:34)
[2019-02-05] MEDS: HYDROmorphone INJ 0.5 MG/0.5 ML SYR IV PRN ×2 (18:35→21:07)
[2019-02-05] MEDS: ONDANSETRON INJ 2 MG/ML 2 ML VIAL IV PRN (18:35)
[2019-02-05] MEDS: LACTATED RINGER'S 1,000 ML IV SCH (18:35)
[2019-02-05] MEDS: DOCUSATE SODIUM 100 MG CAP PO SCH (18:46)
[2019-02-05] MEDS: CLINDAMYCIN 600 MG in DEXTROSE 5% 50 ML IV SCH (21:01)
[2019-02-06] MEDS: HYDROmorphone INJ 0.5 MG/0.5 ML SYR IV PRN ×8 (00:29→17:54)
[2019-02-06] MEDS: LACTATED RINGER'S 1,000 ML IV SCH ×3 (01:06→17:58)
[2019-02-06] MEDS: ACETAMINOPHEN 1,000 MG/100 ML VIAL IV SCH ×2 (03:31→10:23)
[2019-02-06] MEDS: CLINDAMYCIN 600 MG in DEXTROSE 5% 50 ML IV SCH ×2 (03:31→11:46)
[2019-02-06] MEDS ORDERED: CLINDAMYCIN PHOS 900 MG/6 ML VIAL IV SCH (06:00)
[2019-02-06] MEDS: LEVOTHYROXINE SODIUM 88 MCG TABLET PO SCH ×2 (06:40→11:44)
[2019-02-06 07:19] LABS: Basophils # (auto) 0.01 K/uL (0-0.2); Basophils % (auto) 0.1 %; Hematocrit (blood only) 28.5 % (37-47); Hemoglobin 9.2 g/dL (12.0-16.0); Immature Granulocytes # (auto) 0.02 K/uL (0.00-0.02); Immature Granulocytes % (auto) 0.2 %; Lymphocytes # (auto) 0.97 K/uL (1.2-3.4); Lymphocytes % (auto) 8.6 %; Mean Corpuscular Hemoglobin 29.8 pg (25-34); Mean Corpuscular Hgb Conc 32.3 g/dL (32-36); Mean Corpuscular Volume 92.2 fL (80-100); Mean Platelet Volume 9.5 fL (7.4-10.4); Monocytes # (auto) 0.67 K/uL (0.11-0.59); Neutrophils # (auto) 9.55 K/uL (1.4-6.5); Neutrophils % (auto) 85.1 %; Platelet Count 268 K/uL (130-400); RDW Coefficient of Variation 16.1 % (11.5-14.5); RDW Standard Deviation 53.9 fL (36.4-46.3); Red Blood Count 3.09 M/uL (4.2-5.4); White Blood Count 11.22 K/uL (4.8-10.8)
[2019-02-06] MEDS: HYDROmorphone INJ 1 MG/ML SYRINGE IV PRN ×6 (07:24→21:36)
[2019-02-06] MEDS: CYANOCOBALAMIN 500 MCG TABLET (VITAMIN B-12) PO SCH (07:26)
[2019-02-06] MEDS: PANTOprazole 40 MG TAB PO SCH ×2 (07:27→21:29)
[2019-02-06 07:53] LABS: BUN Creatinine Ratio 11.1 (10-20); Calcium 8.8 mg/dl (8.5-10.1); Creatinine Clr Calc Pharmacy 67.8 ml/min; Est GFR (African American) 92.1; Est GFR (Non-African American) 79.5; Potassium 4.2 mmol/L (3.5-5.1)
--- NOTE | 2019-02-06 08:16 | Anesthesiology Progress Note ---
Date of Service February 06, 2019 Anesthesia Post Procedure Vital Signs Vital Signs: Temp Pulse Resp BP Pulse Ox 02/06/19 07:00 36.6 C 76 24 106/63 96 02/06/19 03:56 36.8 C 77 102/61 95 02/05/19 23:35 36.5 C 81 19 113/69 90 02/05/19 19:37 36.5 C 66 18 113/64 97 02/05/19 17:45 71 16 105/54 L 97 02/05/19 17:15 36.6 C 69 18 109/57 L 96 02/05/19 16:50 36.4 C L 70 19 103/59 L 97 02/05/19 16:40 67 13 102/60 96 02/05/19 16:30 67 17 111/62 96 02/05/19 16:20 60 20 106/61 97 02/05/19 16:10 59 L 22 105/65 93 02/05/19 16:00 61 17 95/60 L 97 02/05/19 15:50 60 19 116/66 98 02/05/19 15:40 36.5 C 65 16 115/69 97 02/05/19 11:46 36.8 C 75 18 125/75 97 02/05/19 11:18 37.1 C 71 18 123/76 95 Pain Intensity Right Abdomen: Pain Intensity: 5 Notes Mental Status: alert / awake / arousable and participated in evaluation Patient Amnestic to Procedure: Yes Nausea / Vomiting: adequately controlled Pain: adequately controlled Airway Patency, RR, SpO2: stable & adequate BP & HR: stable & adequate Hydration State: stable & adequate Anesthetic Complications: no major complications apparent and Pt Satisfied with anesthetic care
--- NOTE | 2019-02-06 08:48 | Surgery Progress Note ---
Date of Service February 06, 2019 Assessment & Plan (1) Cecum mass: Doing as expected postoperative day #1. Okay to sip clear liquids Labs reviewed Increase activity/out of bed today Dr. Grady covering tomorrow as well as the weekend. Subjective Patient is having significant pain last evening after surgery. They have been able to get it under control better at this point with her pain now being about a 4- 5 out of 10. Appears reasonably comfortable lying in bed. Physical Exam Physical Exam: Alert and oriented no acute distress No respiratory distress Abdomen soft with expected tenderness. HILL with a small amount of serous fluid. Results & Data Vital Signs (Past 12 Hours) Vital Signs Temp Pulse Resp BP Pulse Ox 02/06/19 07:00 36.6 C 76 24 106/63 96 02/06/19 03:56 36.8 C 77 102/61 95 02/05/19 23:35 36.5 C 81 19 113/69 90 PG Care Time/CCT Total # of Minutes Spent Total Time Spent with Patient: Total time spent is greater than 50% in coordination of care (as documented) at patient's floor/unit and/or counseling patient:
--- NOTE | 2019-02-06 10:12 | Operative Report ---
PG Post Operative Report Pre & Post Diagnosis Operation Date: 02/04/19 16:30 Pre-Op Diagnosis: ANEMIA Post-Op Diagnosis: anemia, erosive gastritis, hiatal hernia, cecal mass, hemorrhoids Operation Date: 02/05/19 12:00 Pre-Op Diagnosis: Cecum Mass, Anemia Post-Op Diagnosis: Cecum Mass, Anemia I identified the patient and participated in the time-out.: Yes Procedure Operation Date: 02/04/19 16:30 Actual Procedures p EGD Biopsy Cytology(Left) - Toby Finley Case, DO s Colonoscopy Biopsy Cytology(Left) - Toby EllisLotus Case, DO Operation Date: 02/05/19 12:00 Actual Procedures p Laparoscopic Extended Right Hemicolectomy(Right) - Matthew Ríos DO Surgeon Matthew Ríos DO Escrow Manager suzanne Robertson Estimated Blood Loss 10 Findings Consistent with Post-Op Diagnosis Specimens terminal ileum, cecum, right colon, portion of transverse colon Description of Procedure After informed consent was obtained the patient was taken to the operating room and placed in supine position. After successful intubation a Adamson catheter was placed and the abdomen was sterilely prepped and draped in usual fashion. A periumbilical incision was made with an 11 blade scalpel and carried down through the soft tissues using cautery. The anterior rectus fascia was opened using cautery and two #0 Vicryl stay sutures were placed. Peritoneum was entered using blunt finger penetration and a finger sweep was performed. A 12 mm Hidalgo trocar was placed and the abdomen was insufflated to 20 mmHg. Laparoscope was inserted and the abdomen examined in 360 degrees. The right colon was actually transfixed to the anterior abdominal wall in a slightly abnormal fashion. Other than that no other abnormalities were seen. Liver looked pristine as did peritoneal surfaces. I placed a left lower quadrant 12 mm trocar , a suprapubic 5 mm trocar and eventually a right upper quadrant 5 mm trocar. The patient was placed in a Trendelenburg position and slightly air planed to the left. I began by evaluating the colon. I could palpate the mass within the cecum with my graspers. I began by mobilizing the right colon by taking it off of the anterior abdominal wall using the harmonic scalpel. Once I had it back to what would be a typical anatomic position, I then began taking down the white line of Toldt laterally. Using traction /countertraction ,blunt dissection and small amounts of harmonic scalpel I was able to take down the white line of Toldt. I was able to identify the right ureter to keep it out of harm's way. The patient essentially had a very short right colon but a very long redundant transverse colon. Because of being unsure the pathology and wanting to obtain adequate margins I decided to perform essentially extended right hemicolectomy. I began by transecting the terminal ileum several centimeters proximal to the ileocecal valve with a ERENDIRA brown cartridge linear stapler. We then located a part of the transverse colon just proximal to the middle colic vessels and transected the colon using a ERENDIRA purple cartridge linear stapler. I used a harmonic scalpel to take down omental attachments as well as to separate it from the stomach duodenum gallbladder etc. We continued around and mobilized the hepatic flexure as well. Then I used a combination of ERENDIRA brown cartridge staplers as well as harmonic scalpel to take down the mesentery of the right colon as well as transverse colon until I had a completely mobilized and detached it. We did try to stay as low on the mesentery as possible to help obtain as many lymph nodes as possible. We then extended the right upper quadrant 5 mm trocar using a fresh scalpel. We toweled off the incision using sterile towels. Cautery was used to open the fascia wide enough until we could first deliver the specimen to be sent off the pathology. After that we were able to deliver the staple line of the transverse colon as well as the staple line of the small bowel. Initially we performed a side to side anastomosis using a ERENDIRA brown cartridge stapler. However I was unhappy with how the anastomosis looked. The mucosal anastomosis did not appear to be long enough and I did not like how it was laying in general. We therefore re- did the anastomosis by placing enterotomies distal to the initial ones and again performed a side to side small bowel to transverse colon anastomosis again using a ERENDIRA brown cartridge stapler. We then used brown cartridge staplers to close the common enterotomies as well as staple off the proximal portions of the bowels that were incorporated in the initial anastomosis. We then used a harmonic scalpel to take down the remainder of the mesentery and discard the initial anastomosis. There is a small defect in the midportion of the enterotomy staple line. I therefore closed the mucosal and serosal layer using 3-0 Monocryl in interrupted fashion. I then used 3-0 silk in Lembert fashion to completely oversew the enterotomy staple line. 3-0 silk was also used to place a crotch stitch. At the end of this the anastomosis was widely patent. The staple lines all had good closure. There was no ischemia and the anastomosis was not twisted. We then placed this back into the abdominal cavity. Next we changed our gloves. The fascia was closed using 0 PDS in a running fashion. Next, I reinsufflated the abdomen. We thoroughly irrigated the right side of the abdomen. There was adequate hemostasis. The anastomosis laparoscopically laid nice and tension-free with no ischemia. We placed a 10 flat Primo-Gordon drain into the right upper quadrant and brought it out through 1 of the trocar sites and secured it to the skin using 2-0 nylon. A final look around the abdomen showed no other abnormalities. The trochars were all removed. The fascia of the camera port was closed using 0 Vicryl in a [id number] fashion. All the wounds were thoroughly irrigated. The larger incision was closed with 3-0 Vicryl and 4-0 Monocryl for skin. Smaller incisions were closed with 4-0 Monocryl. Marcaine with epinephrine were injected around all the incisions for postoperative analgesia and sterile dressings were applied. The patient was awakened extubated and transferred recovery in stable condition. My physician captain assistant was present the entire case. He helped prep the patient. He helped run the camera as well as with retraction during my dissection and anastomosis. He also assisted with wound closure and dressing placement. I attest to the content of the Intraoperative Record and any orders documented therein. Any exceptions are noted below.
--- NOTE | 2019-02-06 12:53 | Progress Note ---
DATE: 02/06/2019 RENAL PROGRESS NOTE SUBJECTIVE: Mrs. Sorenson went through her right hemicolectomy yesterday. Her surgery was apparently uncomplicated. Dr. Ríos's operative note was fully reviewed. There was apparently some degree of adherence of the cecum to the peritoneal wall, but no other significant abnormalities were noted other than the palpation of the tumor mass. Postoperatively, when awake, she did have a considerable degree of abdominal discomfort. She said that she took pain medicines about every hour. Her pain seems to be a bit better this morning. She denies having any nausea. She has been started on clear liquids. OBJECTIVE: GENERAL: On physical exam, she appears relatively well and comfortable. VITAL SIGNS: Her blood pressure was a bit low at 93/52, her pulse 72 and regular, respiratory rate 14. Her pulse ox 92% on 2 liters of oxygen via nasal cannula. She is afebrile. SKIN: Turgor was normal. She does have the abdominal small incisions from her surgical procedure. There is no rash. LYMPHATICS: Show no adenopathy. HEAD, EYES, EARS, NOSE AND THROAT: All unremarkable. She has no conjunctival icterus. Her oral mucous membranes are moist. NECK: Supple. There is no jugular venous distention, carotid bruit or thyromegaly. CHEST: Clear to auscultation. CARDIAC: Showed a regular rhythm. I heard no murmur or gallop. ABDOMEN: Minimally tender throughout. I did hear a few scattered bowel sounds. EXTREMITIES: Show no peripheral edema. NEUROLOGIC: She has no lateralizing neurologic changes. LABORATORY WORK: From today shows a white count of 11,220 with a slight shift to the left (85.1% neutrophils). Her hemoglobin is 9.2, her hematocrit 28.5, her platelet count 268,000. Clinical chemistries showed a sodium of 138 mmol/L, potassium 4.2 mmol/L, chloride is 106 mmol/L, and CO2 content 28 mmol/L. Her BUN 9, her creatinine 0.81. A random blood sugar was 118, but she does have an IV running. Her serum calcium is 8.8. A carcinoembryonic antigen is 0.6. ASSESSMENT: Ms. Sorenson appeared to do well with surgery. She had an expected amount of postoperative abdominal discomfort. She is now taking clear liquids. She looks relatively well. Her blood pressure is a bit low for her, but she is not tachycardic or seemingly in any acute distress. PLAN: Continue with Dr. Ríos's routine postoperative care. I will be away for the next several days. Obviously, the hospitalists are available if medical support is necessary.
--- NOTE | 2019-02-06 15:09 | Hospitalist Progress Note ---
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 - Oncology consult (2) GI bleed: Received 2 units of PRBCs on 02/03 for hgb down to 7. Has not had prior issues with anemia since stopping gluten in 03/2017. - EGD/colo on 02/04 showed cecal mass. - Continue home PPI PO BID - S/p right jose-colectomy with Dr. Ríos on 02/05. - She continues to have some abdominal pain and soreness. Monitoring closely. (3) Celiac disease: Has some indiscretions occasionally, but overall very compliant with non- gluten diet. 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 - Continue Synthroid 88 mcg (5) DVT prophylaxis: SCDs - Given recent surgery. Subjective In quite a bit of pain this morning. The pain medication helps, but is overall still there. Also quite tired. No major appetite. Reports no fevers/chills, chest pain, shortness of breath, nausea, or vomiting. Physical Exam Constitutional: WD/WN, vitals as above Eyes: EOM intact bilaterally; no conjunctival abnormality ENMT: external ear and nose normal, oropharynx normal Neck: trachea midline, no thyromegaly normal visual inspection Respiratory: normal respiratory effort, lungs clear to auscultation no respiratory distress Cardiovascular: RRR, no murmur, no edema Gastrointestinal (Abdomen): Inspection/Auscultation: + abdominal surgical scar (Drain in LLQ.); abdomen not distended Percussion/Palpation: + abdomen tender and abdomen soft; no guarding and abdomen not rigid Musculoskeletal: no cyanosis or clubbing, extremities motor strength 5/5 Skin: no rashes, warm and dry Neurologic: moves all extremities and awake Psychiatric: Orientation: alert, oriented to person and cooperative Results & Data Vital Signs (Past 12 Hours) Vital Signs Temp Pulse Pulse Resp BP Pulse Ox 02/06/19 14:57 66 02/06/19 11:21 36.8 C 72 14 93/52 L 92 02/06/19 08:00 64 02/06/19 07:00 36.6 C 76 24 106/63 96 02/06/19 03:56 36.8 C 77 102/61 95 PG Care Time/CCT Total # of Minutes Spent Total Time Spent with Patient: Total time spent is greater than 50% in coordination of care (as documented) at patient's floor/unit and/or counseling patient: (1) GI bleed GI bleed type/associated pathology: unspecified gastrointestinal hemorrhage type Qualified Code(s): K92.2 - Gastrointestinal hemorrhage, unspecified
[2019-02-07] MEDS: HYDROmorphone INJ 1 MG/ML SYRINGE IV PRN ×3 (01:35→07:13)
[2019-02-07] MEDS: LACTATED RINGER'S 1,000 ML IV SCH (01:35)
[2019-02-07] MEDS: LEVOTHYROXINE SODIUM 88 MCG TABLET PO SCH (05:42)
[2019-02-07 07:03] LABS: Basophils # (auto) 0.02 K/uL (0-0.2); Basophils % (auto) 0.2 %; Eosinophils # (auto) 0.12 K/uL (0-0.5); Eosinophils % (auto) 1.3 %; Hematocrit (blood only) 27.7 % (37-47); Hemoglobin 8.6 g/dL (12.0-16.0); Immature Granulocytes # (auto) 0.01 K/uL (0.00-0.02); Immature Granulocytes % (auto) 0.1 %; Lymphocytes # (auto) 1.38 K/uL (1.2-3.4); Lymphocytes % (auto) 14.7 %; Mean Corpuscular Hemoglobin 29.8 pg (25-34); Mean Corpuscular Volume 95.8 fL (80-100); Mean Platelet Volume 9.5 fL (7.4-10.4); Monocytes # (auto) 0.52 K/uL (0.11-0.59); Monocytes % (auto) 5.5 %; Neutrophils # (auto) 7.34 K/uL (1.4-6.5); Neutrophils % (auto) 78.2 %; Platelet Count 262 K/uL (130-400); RDW Coefficient of Variation 15.9 % (11.5-14.5); RDW Standard Deviation 55.1 fL (36.4-46.3); Red Blood Count 2.89 M/uL (4.2-5.4); White Blood Count 9.39 K/uL (4.8-10.8)
[2019-02-07 07:30] LABS: BUN Creatinine Ratio 9.4 (10-20); Calcium 8.5 mg/dl (8.5-10.1); Creatinine Clr Calc Pharmacy 70.4 ml/min; Est GFR (African American) 96.4; Est GFR (Non-African American) 83.2; Potassium 3.8 mmol/L (3.5-5.1)
[2019-02-07] MEDS: CYANOCOBALAMIN 500 MCG TABLET (VITAMIN B-12) PO SCH (07:59)
[2019-02-07] MEDS: PANTOprazole 40 MG TAB PO SCH ×2 (07:59→20:54)
[2019-02-07] MEDS: ACETAMINOPHEN 500 MG TAB PO PRN (07:59)
--- NOTE | 2019-02-07 08:46 | Surgery Progress Note ---
Date of Service February 07, 2019 Assessment & Plan (1) Adenocarcinoma of colon: POD 2 lap right jose keep on clears increase activity add Toradol start Lovenox follow H&H d/c tan Subjective right side pain, no nausea, no flatus, not OOB much Physical Exam Gastrointestinal (Abdomen): Inspection/Auscultation: + abdominal surgical inci ori (clean, dry) and + abdominal surgical drain present (serosang); abdomen not distended Percussion/Palpation: abdomen soft Results & Data Vital Signs (Past 12 Hours) Vital Signs Temp Pulse Resp BP Pulse Ox 02/07/19 07:06 37.7 C H 87 24 108/64 96 02/07/19 03:41 37.1 C 84 20 114/66 97 02/06/19 23:35 36.7 C 78 20 103/61 94 PG Care Time/CCT Total # of Minutes Spent Total Time Spent with Patient: Total time spent is greater than 50% in coordination of care (as documented) at patient's floor/unit and/or counseling patient:
[2019-02-07] MEDS: ENOXAPARIN INJ 40 MG/0.4 ML SYR SQ SCH (10:58)
[2019-02-07] MEDS: D5W AND 1/2NSS + 20MEQ KCL 20 MEQ/1,000 ML BAG IV SCH (10:58)
[2019-02-07] MEDS: KETOROLAC 30 MG/ML VIAL IV PRN ×2 (10:58→17:42)
--- NOTE | 2019-02-07 12:06 | Hospitalist Progress Note ---
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 I did discuss these implications with her and her sons. They should be tested for Hoover syndrome and will need additional cancer screenings if positive. - Oncology consulted (2) GI bleed: Received 2 units of PRBCs on 02/03 for hgb down to 7. Has not had prior issues with anemia since stopping gluten in 03/2017. - EGD/colo on 02/04 showed cecal mass which is adenocarcinoma. - Continue home PPI PO BID - S/p right jose-colectomy with Dr. Ríos on 02/05. - She continues to have some abdominal pain and soreness. Pain regimen was adjusted by surgery, and we are encouraging her to get up and out of bed. (3) Celiac disease: Has some indiscretions occasionally, but overall very compliant with non- gluten diet. 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 - Continue Synthroid 88 mcg (5) DVT prophylaxis: SCDs - Given recent surgery. Subjective Reports that overnight her pain was quite severe, but that it is better in the morning. No nausea or vomiting. Appetite is ok. No flatus or BM. Physical Exam Constitutional: WD/WN, vitals as above Eyes: EOM intact bilaterally; no conjunctival abnormality ENMT: external ear and nose normal, oropharynx normal Neck: trachea midline, no thyromegaly normal visual inspection Respiratory: normal respiratory effort, lungs clear to auscultation no respiratory distress Cardiovascular: RRR, no murmur, no edema Gastrointestinal (Abdomen): Inspection/Auscultation: + abdominal surgical scar (Drain in LLQ.); abdomen not distended Percussion/Palpation: + abdomen tender and abdomen soft; no guarding and abdomen not rigid Small surgical scars with some mild bruising. Musculoskeletal: no cyanosis or clubbing, extremities motor strength 5/5 Skin: no rashes, warm and dry Neurologic: moves all extremities and awake Psychiatric: Orientation: alert, oriented to person and cooperative Results & Data Vital Signs (Past 12 Hours) Vital Signs Temp Pulse Pulse Resp BP Pulse Ox 02/07/19 11:31 37.1 C 81 18 97/61 L 95 02/07/19 07:30 85 02/07/19 07:06 37.7 C H 87 24 108/64 96 02/07/19 03:41 37.1 C 84 20 114/66 97 PG Care Time/CCT Total # of Minutes Spent Total Time Spent with Patient: Total time spent is greater than 50% in coordination of care (as documented) at patient's floor/unit and/or counseling patient: (1) GI bleed GI bleed type/associated pathology: unspecified gastrointestinal hemorrhage type Qualified Code(s): K92.2 - Gastrointestinal hemorrhage, unspecified
--- NOTE | 2019-02-07 12:25 | Oncology Consultation ---
Date of Consultation February 07, 2019 Assessment & Plan (1) Adenocarcinoma of colon: Ms. Sorenson has a well-differentiated MSI-H colon adenocarcinoma. She has undergone surgery and we are now awaiting her final pathologic staging. Based on her CTs, she has no evidence of metastatic disease. In general, MSI-H cancers have a better prognosis than similarly staged IDANIA tumors. They are also less likely to benefit from adjuvant chemotherapy. As a result, unless she has node- positive disease, she likely will be able to forgo adjuvant chemo. We can discuss this topic in more detail once we have her final pathology results. I will follow up with her with these results if she is still here when they are available. Otherwise, I will see her in my office to discuss them. Present on Admission?: Yes (2) Anemia: Ms. Sorenson's anemia is multifactorial. She clearly has a component of iron deficiency, though her ferritin was corrected by the IV iron Dr. King gave her. Her hemoglobin first dropped in November, following her hip surgery. It has not really recovered since, likely because of the iron-deficiency and some component of ongoing blood loss. Her drop while here was likely also on a post- operative basis. Now that she is iron-replete, she should recover her counts in time. However, I might consider sending her home on some oral iron, if she will tolerate it, to prevent her from becoming iron deficient in the process of recovering from her anemia. Present on Admission?: Yes History of Present Illness Reason for Consultation: Newly diagnosed colon cancer Attending Physician: eHriberto Perdomo MD History of Present Illness Ms. Sorenson is a generally healthy 58 year old woman with a history of hypothyroidism and osteoarthritis. She underwent a hip replacement in November, and developed a post-operative anemia. However, her counts continued to fall and so Dr. King, her PCP, ordered iron studies that revealed iron deficiency. He replaced her iron intravenously and arranged for her to undergo an endoscopic workup. However, in the interim while those arrangements were being made, she began to develop hematochezia. This led to her being admitted on 02/02/19. She underwent EGD and colonoscopy 02/04/19 that revealed an infiltrative non-obstructing medium-sized mass in the cecum. It was biopsied revealing a well-differentiated colon adenocarcinoma with loss of PMS2. She underwent right hemicolectomy on 02/05/19, with pathology still pending. She denies any recent weight loss, abdominal pain, nausea, or early satiety. She has some pain in her left hip, which was replaced in November, and in her low back. She denies any other pain in the weeks leading up to today, though she is sore in her abdomen on a post-operative basis. She had a colonoscopy about 2 years ago that was apparently negative. She has no family history of colon cancer, though she does have a history of some skin cancers. She denies any cough, shortness of breath, chest pain, or bleeding elsewhere. She had some dizziness and palpitations prior to admission that have improved some. Allergies Allergy/AdvReac Type Severity Reaction Status Date / Time amoxicillin Allergy Mild RASH Verified 02/02/19 12:53 gluten Allergy Mild celiac's Verified 02/02/19 12:53 disease wheat Allergy Mild celiac's Verified 02/02/19 12:53 disease Home Medications Home Medications Medication Instructions Recorded Confirmed Type cyanocobalamin (vitamin B-12) 500 500 mcg PO QAM tab 10/02/18 02/02/19 History mcg tablet aspirin 81 mg tablet,delayed 81 mg PO QAM 12/04/18 02/02/19 History release ascorbic acid (vitamin C) 500 mg 500 mg PO QAM cap 01/03/19 02/02/19 History capsule docusate sodium [Colace] 100 mg PO BID 01/07/19 02/02/19 History ferrous sulfate 325 mg (65 mg 325 mg PO BID tab 01/15/19 02/02/19 History iron) tablet acetaminophen [Tylenol Extra 500 - 1,000 mg PO Q6H PRN 01/31/19 02/02/19 History Strength] levothyroxine 88 mcg PO QAM 01/31/19 02/02/19 History pantoprazole 40 mg PO BID 01/31/19 02/02/19 History Patient History Medical History Adult celiac disease (Chronic) confirmed via blood test only Anxiety PANIC ATTACKS X 2 EPISODES THIS YEAR Breast cyst (Chronic) Constipation Depression with anxiety (Chronic) Diverticulosis (Chronic) Fatigue (Chronic) Moses's thyroiditis (Chronic) History of recent blood transfusion 01/17/2019 for hemoglobin of 7.4 Hypothyroidism Internal hemorrhoids (Chronic) Iron deficiency anemia (Chronic) Iron deficiency anemia secondary to blood loss (chronic) Osteoarthritis Solitary thyroid nodule Submucous leiomyoma of uterus (Resolved) Surgical History H/O breast surgery puncture aspiration of cyst History of colonoscopy History of esophagogastroduodenoscopy (EGD) MAC History of tooth extraction History of total left hip replacement Hx of biopsy biopsy thyroid using percutaneous core needle Family History Mother Diabetes Family history of diabetes mellitus Coronary heart disease S/P triple vessel bypass Sister Family history of diabetes mellitus Other No family history of adverse response to anesthesia Social History Preferred Language: Gabonese Communication Ability: Effective Actuarial Consultant Required: No Beliefs That Will Affect Care: None marital status: Current Living Situation: Spouse Feels Safe at Home: Yes Smoking Status: Never smoker Second Hand Exposure: No ; Hx Alcohol Use: No Hx Substance Use: No Physical Activity Frequency: Does not Exercise Review of Systems Review of Systems: All systems reviewed & are unremarkable except as noted in HPI & below Physical Exam Constitutional: healthy appearing and comfortable; no acute distress Eyes: + anicteric sclerae ENMT: external ear and nose normal, oropharynx normal Respiratory: normal respiratory effort, lungs clear to auscultation Cardiovascular: RRR, no murmur, no edema Gastrointestinal (Abdomen): Inspection/Auscultation: + hypoactive bowel sounds Percussion/Palpation: + abdomen tender (mildly tender diffusely) and abdomen soft; no guarding Psychiatric: A+Ox3, euthymic affect Lymphatic: no cervical or axillary lymphadenopathy Results & Data Vital Signs (Past 12 Hours) Vital Signs Temp Pulse Pulse Resp BP Pulse Ox 02/07/19 11:31 37.1 C 81 18 97/61 L 95 02/07/19 07:30 85 02/07/19 07:06 37.7 C H 87 24 108/64 96 02/07/19 03:41 37.1 C 84 20 114/66 97 Laboratory Results Laboratory Tests 02/04/19 02/07/19 12:23 06:26 WBC 9.39 Hgb 8.6 L MCV 95.8 Plt Count 262 Carcinoembryonic Ag 0.[address] Chest 02/04/19: IMPRESSION: 1. No evidence of intrathoracic metastatic disease. CT A/P with contrast, 02/04/19: IMPRESSION: 1. No evidence of bowel obstruction. No evidence of free air 2. Abnormal bowel wall thickening involving the cecum with mild infiltration of pericecal fat. In addition there are small indeterminate pericecal lymph nodes. The findings could be neoplastic or inflammatory. Clinical correlation, and correlation with recent biopsy results are recommended.
[2019-02-07] MEDS: IRON SUCROSE 200 MG in 0.9 % SODIUM CHLORIDE 100 ML IV SCH (14:28)
[2019-02-08] MEDS: KETOROLAC 30 MG/ML VIAL IV PRN ×4 (00:05→18:49)
[2019-02-08] MEDS: D5W AND 1/2NSS + 20MEQ KCL 20 MEQ/1,000 ML BAG IV SCH ×2 (00:05→12:54)
[2019-02-08] MEDS: ACETAMINOPHEN 500 MG TAB PO PRN ×3 (00:49→16:26)
[2019-02-08] MEDS: HYDROmorphone INJ 1 MG/ML SYRINGE IV PRN (00:50)
[2019-02-08] MEDS: LEVOTHYROXINE SODIUM 88 MCG TABLET PO SCH (05:46)
[2019-02-08 06:55] LABS: Basophils # (auto) 0.01 K/uL (0-0.2); Basophils % (auto) 0.1 %; Eosinophils # (auto) 0.19 K/uL (0-0.5); Eosinophils % (auto) 2.2 %; Hematocrit (blood only) 25.9 % (37-47); Hemoglobin 8.2 g/dL (12.0-16.0); Immature Granulocytes # (auto) 0.01 K/uL (0.00-0.02); Immature Granulocytes % (auto) 0.1 %; Lymphocytes # (auto) 1.21 K/uL (1.2-3.4); Lymphocytes % (auto) 13.8 %; Mean Corpuscular Hemoglobin 29.6 pg (25-34); Mean Corpuscular Hgb Conc 31.7 g/dL (32-36); Mean Corpuscular Volume 93.5 fL (80-100); Mean Platelet Volume 9.3 fL (7.4-10.4); Monocytes % (auto) 6.8 %; Neutrophils # (auto) 6.75 K/uL (1.4-6.5); Platelet Count 205 K/uL (130-400); RDW Coefficient of Variation 15.4 % (11.5-14.5); RDW Standard Deviation 52.9 fL (36.4-46.3); Red Blood Count 2.77 M/uL (4.2-5.4); White Blood Count 8.77 K/uL (4.8-10.8)
[2019-02-08 07:31] LABS: BUN Creatinine Ratio 7.9 (10-20); Calcium 8.4 mg/dl (8.5-10.1); Creatinine Clr Calc Pharmacy 79.6 ml/min; Est GFR (African American) 110.4; Est GFR (Non-African American) 95.3; Potassium 3.7 mmol/L (3.5-5.1)
[2019-02-08] MEDS: CYANOCOBALAMIN 500 MCG TABLET (VITAMIN B-12) PO SCH (08:26)
[2019-02-08] MEDS: PANTOprazole 40 MG TAB PO SCH ×2 (08:26→21:03)
[2019-02-08] MEDS: ENOXAPARIN INJ 40 MG/0.4 ML SYR SQ SCH (08:26)
--- NOTE | 2019-02-08 08:50 | Surgery Progress Note ---
Date of Service February 08, 2019 Assessment & Plan (1) Adenocarcinoma of colon: doing as expected discussed colonoscopy path awaiting full return of bowel fx stay on clears for now increase activity Dr. Grady covering for weekend. Subjective pt doing ok. still having significant right sided pain. tolerating with just toradol and tylenol. small bloody bm but nothing significant. Physical Exam Physical Exam: alert. NAD no respiratory distress abd: soft. expected tenderness. wounds look good without redness or drainage Results & Data Vital Signs (Past 12 Hours) Vital Signs Temp Pulse Resp BP Pulse Ox 02/08/19 06:58 37.2 C 74 19 120/66 95 02/08/19 03:00 37.0 C 02/08/19 00:10 37.6 C H 02/07/19 23:55 38 C H 85 16 125/67 91 PG Care Time/CCT Total # of Minutes Spent Total Time Spent with Patient: Total time spent is greater than 50% in coordination of care (as documented) at patient's floor/unit and/or counseling patient:
[2019-02-08] MEDS: IRON SUCROSE 200 MG in 0.9 % SODIUM CHLORIDE 100 ML IV SCH (13:03)
--- NOTE | 2019-02-08 13:34 | Hospitalist Progress Note ---
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 I did discuss these implications with her and her sons. Per oncology, this is likely an acquired issue, but further testing will be done. - Oncology consulted - Final decisions on chemo pending on final pathology. (2) GI bleed: Received 2 units of PRBCs on 02/03 for hgb down to 7. Has not had prior issues with anemia since stopping gluten in 03/2017. - EGD/colo on 02/04 showed cecal mass which is adenocarcinoma. - Continue home PPI PO BID - S/p right jose-colectomy with Dr. íRos on 02/05. - She continues to have some abdominal pain and soreness. Pain regimen was adjusted by surgery, and we are encouraging her to get up and out of bed. Getting some IV iron. (3) Celiac disease: Has some indiscretions occasionally, but overall very compliant with non- gluten diet. 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 - Continue Synthroid 88 mcg (5) DVT prophylaxis: SCDs - Given recent surgery. Subjective Slowly doing better. Able to be up and walk around some. Still tolerating her diet. Pain is improving day by day. No flatus yet. Reports no fevers/chills, chest pain, shortness of breath, nausea, or vomiting. Physical Exam Constitutional: WD/WN, vitals as above Eyes: EOM intact bilaterally; no conjunctival abnormality ENMT: external ear and nose normal, oropharynx normal Neck: trachea midline, no thyromegaly normal visual inspection Respiratory: normal respiratory effort, lungs clear to auscultation no respiratory distress Cardiovascular: RRR, no murmur, no edema Gastrointestinal (Abdomen): Inspection/Auscultation: + abdominal surgical scar (Drain in LLQ. Surgical scars without warmth, redness, or drainage.); abdomen not distended Percussion/Palpation: + abdomen tender and abdomen soft; no guarding and abdomen not rigid Musculoskeletal: no cyanosis or clubbing, extremities motor strength 5/5 Skin: no rashes, warm and dry Neurologic: moves all extremities and awake Psychiatric: Orientation: alert, oriented to person and cooperative Results & Data Vital Signs (Past 12 Hours) Vital Signs Temp Pulse Resp BP Pulse Ox 02/08/19 06:58 37.2 C 74 19 120/66 95 02/08/19 03:00 37.0 C PG Care Time/CCT Total # of Minutes Spent Total Time Spent with Patient: Total time spent is greater than 50% in coordination of care (as documented) at patient's floor/unit and/or counseling patient: (1) GI bleed GI bleed type/associated pathology: unspecified gastrointestinal hemorrhage type Qualified Code(s): K92.2 - Gastrointestinal hemorrhage, unspecified
[2019-02-08] MEDS: ONDANSETRON INJ 2 MG/ML 2 ML VIAL IV PRN (17:24)
[2019-02-09] MEDS: KETOROLAC 30 MG/ML VIAL IV PRN ×2 (01:23→15:59)
[2019-02-09] MEDS: D5W AND 1/2NSS + 20MEQ KCL 20 MEQ/1,000 ML BAG IV SCH ×3 (01:26→14:05)
[2019-02-09] MEDS: HYDROmorphone INJ 1 MG/ML SYRINGE IV PRN ×3 (05:11→12:35)
[2019-02-09] MEDS: LEVOTHYROXINE SODIUM 88 MCG TABLET PO SCH (05:12)
[2019-02-09 05:26] LABS: Basophils # (auto) 0.02 K/uL (0-0.2); Basophils % (auto) 0.2 %; Eosinophils # (auto) 0.24 K/uL (0-0.5); Eosinophils % (auto) 2.5 %; Hematocrit (blood only) 27.2 % (37-47); Hemoglobin 8.5 g/dL (12.0-16.0); Immature Granulocytes # (auto) 0.01 K/uL (0.00-0.02); Immature Granulocytes % (auto) 0.1 %; Lymphocytes # (auto) 1.15 K/uL (1.2-3.4); Mean Corpuscular Hemoglobin 29.7 pg (25-34); Mean Corpuscular Hgb Conc 31.3 g/dL (32-36); Mean Corpuscular Volume 95.1 fL (80-100); Mean Platelet Volume 9.7 fL (7.4-10.4); Monocytes # (auto) 0.69 K/uL (0.11-0.59); Monocytes % (auto) 7.2 %; Neutrophils # (auto) 7.48 K/uL (1.4-6.5); Platelet Count 231 K/uL (130-400); RDW Coefficient of Variation 15.1 % (11.5-14.5); RDW Standard Deviation 51.9 fL (36.4-46.3); Red Blood Count 2.86 M/uL (4.2-5.4); White Blood Count 9.59 K/uL (4.8-10.8)
[2019-02-09 05:50] LABS: BUN Creatinine Ratio 5.4 (10-20); Calcium 8.2 mg/dl (8.5-10.1); Creatinine Clr Calc Pharmacy 74.2 ml/min; Est GFR (African American) 102.8; Est GFR (Non-African American) 88.7
[2019-02-09] MEDS: ENOXAPARIN INJ 40 MG/0.4 ML SYR SQ SCH (08:58)
[2019-02-09] MEDS: CYANOCOBALAMIN 500 MCG TABLET (VITAMIN B-12) PO SCH (08:58)
[2019-02-09] MEDS: PANTOprazole 40 MG TAB PO SCH ×2 (08:58→20:30)
--- NOTE | 2019-02-09 10:03 | Surgery Progress Note ---
Date of Service February 09, 2019 Assessment & Plan (1) Adenocarcinoma of colon: 02/09/19 WBC: 9.5 and VSS Surgical incisions c/d/i and HILL drain serosang. Will offer full liquid diet today, however will not advance further until meaningful return of bowel function Will add po [place] to pain regimen to see if we can get longer pain control Activity as tolerates Subjective Patient tearful and frustrated this AM with her pain and wishes to have something more substantial to eat. Her pain is mostly located on her right side, hurts more when she coughs and moves. She states the Toradol has been helping, and dilaudid prn helps but only for a short period of time. She passed some gas yesterday and thinks she feels as though she may pass more this AM. No BM yet. Tolerating clears, however they are not appetizing to her. Physical Exam Physical Exam: awake/alert/sitting up in chair. Constitutional: tearful Gastrointestinal (Abdomen): Inspection/Auscultation: + abdominal surgical incision (c/d/i with dermabond overtop. some ecchymosis of right sided incision) and + abdominal surgical drain present (serosang.) Results & Data Vital Signs (Past 12 Hours) Vital Signs Temp Pulse Resp BP Pulse Ox 02/09/19 07:38 37.4 C 78 18 107/65 92 02/08/19 22:53 36.9 C 70 18 106/58 L 95 PG Care Time/CCT Total # of Minutes Spent Total Time Spent with Patient: Total time spent is greater than 50% in coordination of care (as documented) at patient's floor/unit and/or counseling patient:
[2019-02-09] MEDS: HYDROCODONE/ACETAMOPHEN 5/325MG TAB PO PRN ×3 (13:08→23:34)
[2019-02-09] MEDS: IRON SUCROSE 200 MG in 0.9 % SODIUM CHLORIDE 100 ML IV SCH (13:08)
--- NOTE | 2019-02-09 13:56 | Hospitalist Progress Note ---
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 I did discuss these implications with her and her sons. Per oncology, this is likely an acquired issue, but further testing will be done. - Oncology consulted - Final decisions on chemo pending on final pathology. (2) GI bleed: Received 2 units of PRBCs on 02/03 for hgb down to 7. Has not had prior issues with anemia since stopping gluten in 03/2017. - EGD/colo on 02/04 showed cecal mass which is adenocarcinoma. - Continue home PPI PO BID - S/p right jose-colectomy with Dr. Ríos on 02/05. - She continues to have some abdominal pain and soreness. Bowel function slowly returning. Advanced diet by surgery. (3) Celiac disease: Has some indiscretions occasionally, but overall very compliant with non- gluten diet. 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 - Continue Synthroid 88 mcg (5) DVT prophylaxis: SCDs - Given recent surgery. Subjective Still slow improvement today. Passing gas. Would like advanced diet. Reports no fevers/chills, chest pain, shortness of breath, nausea, or vomiting. Physical Exam Constitutional: WD/WN, vitals as above Eyes: EOM intact bilaterally; no conjunctival abnormality ENMT: external ear and nose normal, oropharynx normal Neck: trachea midline, no thyromegaly normal visual inspection Respiratory: normal respiratory effort, lungs clear to auscultation no respiratory distress Cardiovascular: RRR, no murmur, no edema Gastrointestinal (Abdomen): Inspection/Auscultation: + abdominal surgical scar (Drain in LLQ. Surgical scars without warmth, redness, or drainage.); abdomen not distended Percussion/Palpation: + abdomen tender and abdomen soft; no guarding and abdomen not rigid Musculoskeletal: no cyanosis or clubbing, extremities motor strength 5/5 Skin: no rashes, warm and dry Neurologic: moves all extremities and awake Psychiatric: Orientation: alert, oriented to person and cooperative Results & Data Vital Signs (Past 12 Hours) Vital Signs Temp Pulse Resp BP Pulse Ox 02/09/19 07:38 37.4 C 78 18 107/65 92 PG Care Time/CCT Total # of Minutes Spent Total Time Spent with Patient: Total time spent is greater than 50% in coordination of care (as documented) at patient's floor/unit and/or counseling patient: (1) GI bleed GI bleed type/associated pathology: unspecified gastrointestinal hemorrhage type Qualified Code(s): K92.2 - Gastrointestinal hemorrhage, unspecified
[2019-02-10] MEDS: D5W AND 1/2NSS + 20MEQ KCL 20 MEQ/1,000 ML BAG IV SCH (02:57)
[2019-02-10] MEDS: LEVOTHYROXINE SODIUM 88 MCG TABLET PO SCH (05:37)
[2019-02-10] MEDS: HYDROCODONE/ACETAMOPHEN 5/325MG TAB PO PRN ×4 (05:37→19:34)
[2019-02-10] MEDS: ENOXAPARIN INJ 40 MG/0.4 ML SYR SQ SCH (07:32)
[2019-02-10] MEDS: CYANOCOBALAMIN 500 MCG TABLET (VITAMIN B-12) PO SCH (07:32)
[2019-02-10] MEDS: PANTOprazole 40 MG TAB PO SCH ×3 (07:33→20:08)
--- NOTE | 2019-02-10 07:56 | Surgery Progress Note ---
Date of Service February 10, 2019 Assessment & Plan (1) Adenocarcinoma of colon: 02/10/19 Patient feels better today and is passing more flatus Vital signs stable Remain on full liquid diet until patient starts having BM's Activity as tolerates Continue on current pain regimen Supervising Physician Co-Signing Physician Notes patient seen and examined, agree with above. s/p right hemicolectomy. afvss, abd soft, appropriately ttp. incisions healing well, drain ss. right sided incision with some dependent erythema inferior to incision, will monitor. advance to low fiber diet, possible d/c tomorrow. Subjective Patient in better spirits this AM. Says she is passing more gas, but no BM yet. She's tolerating full liquids without nausea/vomiting. Her pain still comes and goes pending what she is doing, but started taking the oral norco without issues. Physical Exam Physical Exam: awake/alert Constitutional: well developed and well nourished; no acute distress Respiratory: normal respiratory effort Gastrointestinal (Abdomen): Inspection/Auscultation: + abdominal surgical incision (c/d/i with some ecchymosis of R incision) Percussion/Palpation: + abdomen tender (slightly ree-incisions) and abdomen soft Results & Data Vital Signs (Past 12 Hours) Vital Signs Temp Pulse Resp BP Pulse Ox 02/10/19 06:56 36.8 C 80 16 108/63 92 02/09/19 23:04 36.8 C 76 17 104/57 L 93 PG Care Time/CCT Total # of Minutes Spent Total Time Spent with Patient: Total time spent is greater than 50% in coord ination of care (as documented) at patient's floor/unit and/or counseling patient:
--- NOTE | 2019-02-10 14:40 | Hospitalist Progress Note ---
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 I did discuss these implications with her and her sons. Per oncology, this is likely an acquired issue, but further testing will be done. - Oncology consulted - Final decisions on chemo pending on final pathology. - Outpatient follow up (2) GI bleed: Received 2 units of PRBCs on 02/03 for hgb down to 7. Has not had prior issues with anemia since stopping gluten in 03/2017. - EGD/colo on 02/04 showed cecal mass which is adenocarcinoma. - Continue home PPI PO BID - S/p right jose-colectomy with Dr. Ríos on 02/05. - Regular diet now. In good spirits. [place] to see her tomorrow and maybe pull the drain? Home? (3) Celiac disease: Has some indiscretions occasionally, but overall very compliant with non- gluten diet. 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 - Continue Synthroid 88 mcg (5) DVT prophylaxis: Lovenox Subjective In good spirits today. She had a BM and feels more comfortable in the stomach area. She has been taking walks around. Happy with progress today. Reports no fevers/chills, chest pain, shortness of breath, nausea, or vomiting. Physical Exam Constitutional: WD/WN, vitals as above Eyes: EOM intact bilaterally; no conjunctival abnormality ENMT: external ear and nose normal, oropharynx normal Neck: trachea midline, no thyromegaly normal visual inspection Respiratory: normal respiratory effort, lungs clear to auscultation no respiratory distress Cardiovascular: RRR, no murmur, no edema Gastrointestinal (Abdomen): Inspection/Auscultation: + abdominal surgical scar (Drain in LLQ. Surgical scars without warmth, redness, or drainage.); abdomen not distended Percussion/Palpation: + abdomen tender and abdomen soft; no guarding and abdomen not rigid Musculoskeletal: no cyanosis or clubbing, extremities motor strength 5/5 Skin: no rashes, warm and dry Neurologic: moves all extremities and awake Psychiatric: Orientation: alert, oriented to person and cooperative Results & Data Vital Signs (Past 12 Hours) Vital Signs Temp Pulse Resp BP Pulse Ox 02/10/19 06:56 36.8 C 80 16 108/63 92 PG Care Time/CCT Total # of Minutes Spent Total Time Spent with Patient: Total time spent is greater than 50% in coordination of care (as documented) at patient's floor/unit and/or counseling patient: (1) GI bleed GI bleed type/associated pathology: unspecified gastrointestinal hemorrhage type Qualified Code(s): K92.2 - Gastrointestinal hemorrhage, unspecified
[2019-02-10] MEDS ORDERED: IRON SUCROSE 100 MG in 0.9 % SODIUM CHLORIDE 100 ML IV STA (14:41)
[2019-02-11] MEDS: HYDROCODONE/ACETAMOPHEN 5/325MG TAB PO PRN ×5 (00:41→21:01)
[2019-02-11 05:26] LABS: Hematocrit (blood only) 27.1 % (37-47); Hemoglobin 8.7 g/dL (12.0-16.0); Mean Corpuscular Hemoglobin 30.1 pg (25-34); Mean Corpuscular Hgb Conc 32.1 g/dL (32-36); Mean Corpuscular Volume 93.8 fL (80-100); Mean Platelet Volume 9.6 fL (7.4-10.4); Platelet Count 292 K/uL (130-400); RDW Coefficient of Variation 14.8 % (11.5-14.5); RDW Standard Deviation 50.4 fL (36.4-46.3); Red Blood Count 2.89 M/uL (4.2-5.4); White Blood Count 9.85 K/uL (4.8-10.8)
[2019-02-11] MEDS: LEVOTHYROXINE SODIUM 88 MCG TABLET PO SCH (06:05)
[2019-02-11] MEDS: PANTOprazole 40 MG TAB PO SCH ×2 (08:11→20:59)
[2019-02-11] MEDS: CYANOCOBALAMIN 500 MCG TABLET (VITAMIN B-12) PO SCH (08:11)
[2019-02-11] MEDS: ENOXAPARIN INJ 40 MG/0.4 ML SYR SQ SCH (08:11)
--- NOTE | 2019-02-11 08:24 | Surgery Progress Note ---
Date of Service February 11, 2019 Assessment & Plan (1) Adenocarcinoma of colon: POD 6 lap right hemicolectomy tolerating diet remove drain can shower instructions given, possible d/c today or tomorrow seen with Dr. Ríos path pending Subjective +BM, starting regular diet, still having incisional pain Physical Exam Gastrointestinal (Abdomen): Inspection/Auscultation: + abdominal surgical drain present (40 cc); abdomen not distended Percussion/Palpation: abdomen soft Results & Data Vital Signs (Past 12 Hours) Vital Signs Temp Pulse Resp BP Pulse Ox Pulse Ox 02/11/19 07:15 36.8 C 77 16 130/62 93 02/11/19 00:20 93 02/10/19 22:57 37.3 C 74 16 114/63 93 PG Care Time/CCT Total # of Minutes Spent Total Time Spent with Patient: Total time spent is greater than 50% in coordination of care (as documented) at patient's floor/unit and/or counseling patient:
--- NOTE | 2019-02-11 09:01 | Progress Note ---
DATE: 02/11/2019 DIAGNOSES: 1. Adenocarcinoma of the colon, stage indeterminate. 2. Gastrointestinal bleeding. 3. Celiac disease. 4. Moses's thyroiditis. 5. Deep venous thrombosis prophylaxis. SUBJECTIVE: I am very pleased to meet Ms. Sorenson today at bedside. She reports undergoing hemicolectomy on 02/07/2019 and continues to be in various stages of recovery. She continues to have right upper quadrant tenderness around the wound site. She admits to engaging in regular diet yesterday which for the most part was well tolerated. Nursing reports no overnight difficulties. Surgical path is pending at the time of today's dictation. Dr. Rowell saw her originally and will see her in followup. She offers no further complaints. Nursing offers no overnight difficulties in regard to Ms. Sorenson. OBJECTIVE: GENERAL: A very pleasant 58-year-old female patient, awake, alert and appropriate. VITAL SIGNS: Temperature 36.8, pulse 77, respiratory rate 16, blood pressure 130/62. SKIN: Without rash or lesion. HEENT: Oral mucosa without erythema or ulceration. HEART: Regular rate and rhythm. LUNGS: Clear to auscultation bilaterally. ABDOMEN: Soft, nontender, nondistended, without palpable hepatosplenomegaly. Surgical wound is healing well. No active drainage. EXTREMITIES: No clubbing, cyanosis or edema. NEUROLOGIC: Grossly intact. LABORATORY DATA: WBC count 9850, hemoglobin 8.7, platelet count 292,000. IMPRESSION: 1. Stage indeterminate colorectal cancer. 2. Lower gastrointestinal bleeding (resolved). 3. Celiac disease. 4. Moses's thyroiditis. PLAN: Marcela was seen and examined at bedside. She remains mildly anemic. Apparently, she has received transfusion and intravenous iron in the past. Checked with pathology this morning, they advised me results should be finalized today. Ms. Sorenson informed me at bedside that she will see Dr. Rowell I believe on 02/19/2019. Thus we will officially sign off at this juncture. Marcela engaged in regular diet yesterday and thus far has been tolerated well. Perhaps Dr. Rowell will check her iron stores again when the patient is seen in outpatient clinic. Thank you very much for allowing us to participate in her care.
[2019-02-11] MEDS: KETOROLAC 30 MG/ML VIAL IV PRN ×2 (10:37→23:56)
[2019-02-11] MEDS: HYDROmorphone INJ 1 MG/ML SYRINGE IV PRN (10:56)
--- NOTE | 2019-02-11 11:13 | Progress Note ---
DATE: 02/11/2019 SUBJECTIVE: The patient is now postoperative day 5. She continues to have abdominal pain which she estimates is getting worse. The pain is just beneath her incision and radiates to the right flank. She says that she has been able to eat reasonably well. She denies nausea, but does not have much of an appetite. She has been passing some gas. She had 2 small liquid bowel movements yesterday. She has had some sweats, which she attributed to having too many covers on when the room was warm. However, she did spike a temperature yesterday to 38.2. She has not had any rigor. OBJECTIVE: GENERAL: On physical exam, the patient definitely appears uncomfortable. VITAL SIGNS: Her blood pressure is 130/62, her pulse is 77 and regular, respiratory rate 16. She is currently afebrile (36.8). Her oxygen saturation is 93% on room air. SKIN: Shows normal skin turgor. She has a right-sided abdominal incision from her surgery. She has no palpable lymphadenopathy. HEAD: Normal. EYES: Grossly normal. She has no conjunctival icterus. EARS, NOSE, MOUTH AND THROAT: Unremarkable. Oral mucous membranes are moist. NECK: Supple. She has no jugular venous distention, carotid bruit or thyromegaly. CHEST: Shows a few right basilar crackles, but is otherwise clear. CARDIAC: Shows a regular rhythm. S1 and S2 are normal. I hear no murmur or gallop. ABDOMEN: Quite tender on the right side. She has voluntary guarding. Bowel sounds are noted. EXTREMITIES: Show no cyanosis, clubbing or peripheral edema. NEUROLOGIC: Shows no lateralizing changes. PERTINENT LABORATORY WORK: From today shows a white count of 9850, differential was not done. Her hemoglobin is 8.7, hematocrit 27.1, her platelet count is 292,000. Differential was not done. She did not have any clinical chemistries done today. ASSESSMENT: The patient is on postop day 5. She is having increasing pain by her estimation. She is asking for pain pills more frequently and in higher doses. Her pain is in the right mid abdomen at the surgical site, but radiates to the right flank. She has had some sweats, which she attributes to the room being warm. However, she also spiked a temperature yesterday to 38.2. Bowel movements have been minimal. She says that she has only moved her bowels twice and it was for a small amount of liquid stool. RECOMMENDATIONS: Although she has no significant elevated white count, she does have a fever. Her abdomen is increasingly painful and tender, although bowel sounds are present. It may be helpful to do an abdominal CT scan. We should make sure that she is not evolving a collection of fluid in her abdomen. No other immediate recommendations, although if she spikes temperature again, obviously cultures will need to be done.
--- NOTE | 2019-02-11 12:10 | Hospitalist Progress Note ---
Date of Service February 11, 2019 Assessment & Plan (1) Adenocarcinoma of colon: * Patient with long standing history of fatigue, anemia. Had received 2 units PRBC prior to trip to [place] in January. Had previously had issues with anemia but since going gluten free in Mar 2017, but not until recently had she started with worsening fatgiue/anemia requiring blood transfusions in addition to IV Iron. * Previous colonoscopy Apr [address] Becker without evidence of malignancy, however per patient, she was told she did not have good prep. * POD #6 s/p lab RIGHT hemicolectomy with Dr. Ríos (02/05) -- drain removed today per surgical team * Patient presented with GI bleed, requiring additional 2 units on 02/03 during this admission for a hemoglobin down to 7. * EGD/Colonoscopy on 02/[address] 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 Per oncology, this is likely an acquired issue, but further testing will be done. * Oncology consulted - Final decisions on chemo pending on final pathology -- patient scheduled for follow up with Dr. Rowell on February 19, 2019 * Tolerating regular diet * Low grade fever, 100.7 yesterday at 3pm -- afebrile since that time, no evidence of infection currently -- will continue to monitor (2) GI bleed: * As above * Resolved -- h/h low, but stable -- increased to 8.7/27.1 * Continue home pantoprazole 40mg BID (3) Celiac disease: * Has some indiscretions occasionally, but overall very compliant with non-gluten diet. (4) Moses's thyroiditis: * TSH on 02/02 was 0.7 * Continue Synthroid 88 mcg (5) Iron deficiency: * As above -- had previously received IV Iron transfusions and PRBCs in the past several months (6) Anxiety: * As above -- panic attack x 2 this year * Recently, mother figure critically ill in ICU- dying of pancreatic CA * Ativan 0.5mg x 1 now * Will continue to monitor-- patient may benefit from low dose SSRI/SNRI/buspar in the future if symptoms persist (7) DVT prophylaxis: * Lovenox Dispo: possible discharge tomorrow if pain/anxiety under control Supervising Physician Co-Signing Physician Notes Attending Attestation - Chart reviewed in detail, care plan d/w KASSANDRA Arnold. I agree w/ the hope components of her documentation. 58yo female recovering from hemicolectomy for adenocarcinoma of the colon. POD #6 from such. Having significant right-sided abdominal pain. Adjust meds for such. Vitals/labs remain stable although she did have low-grade fever overnight. Follow carefully; any recurrent fever- work-up advised. Yasir Cohen MD Subjective Patient evaluated at bedside this morning. She states her pain had been an 8/10, controlled with oral [place], however after having her drain removed this morning, she states she is having 10/10 pain, primarily right sided with radiation around her side and to her back. She states she had been trying to take oral pain medications with the hopes of being discharged, but her pain is no longer controlled. She states she did have two liquid bowel movements yesterday and has been passing gas this morning. She states she did have a low grade temperature yesterday afternoon, but denies any associated fever or chills. She does state she feels a little warm this morning, but states she feels it is due to the bed. She states she does plan to be discharged home with the support of her family, and had previously used [email or web address] for services after her having her hip done back in October and would be agreeable to have them come in if she were to need further services. Patient agreeable to stay to allow for better pain control and to monitor overnight. Upon notification from nursing, patient with increased leg swelling and palpitations this afternoon. After ROS and associated symptoms, patient appeared increasingly anxious. Upon further discussion, it was discovered that the patient's friend whom she considered a mother figure, is currently dying from pancreatic cancer in the ICU and a close friend is not doing well at a correction. After [facility] the month and being admitted on Feb 02, the patient admits to increased anxiety and depression regarding not being able to be there and care for the ones she loves in their time of need. Patient became tearful. Review of Systems Review of Systems: All systems reviewed & are unremarkable except as noted in HPI & below Constitutional: + chills; no fever Eyes: no diplopia and no discharge Ear, Nose, Mouth, Throat: no sore throat and no dysphagia Respiratory: no cough and no dyspnea Cardiovascular: + palpitations and + edema (this afternoon, "puffy"); no chest pain Gastrointestinal: + abdominal pain; no nausea, no vomiting and no constipation Genitourinary: no dysuria and no urinary frequency Integumentary: no rash and no lesions Neurologic: no syncope and no headache(s) Endocrine: + cold intolerance Physical Exam Constitutional: WD/WN, vitals as above no acute distress Eyes: PERRL, conjunctivae normal, anicteric sclerae Neck: trachea midline, no thyromegaly Respiratory: normal respiratory effort; no respiratory distress, no labored breathing and no cough Auscultation: + crackles (right basilar crackles); no rhonchi Cardiovascular: Rate/Rhythm: regular rhythm and + tachycardic Heart Sounds: normal S1 and normal S2; no murmur Gastrointestinal (Abdomen): Percussion/Palpation: + abdomen tender (RLQ primarily, although diffusely tender); no guarding, abdomen not rigid and no hepatosplenomegaly surgical scar to mid/right LQ without warmth, redness or drainage dressing to RLQ without warmth, redness or evidence of streaking Musculoskeletal: no cyanosis or clubbing, extremities motor strength 5/5 Skin: no rashes, warm and dry Neurologic: PERRL, EOMI, accommodation nl, no face palsy, no dysarthria Psychiatric: Orientation: alert and oriented x 3 Affect: + anxious affect Lymphatic: no cervical or axillary lymphadenopathy Results & Data Vital Signs (Past 12 Hours) Vital Signs Temp Pulse Resp BP Pulse Ox Pulse Ox 02/11/19 07:15 36.8 C 77 16 130/62 93 02/11/19 00:20 93 Laboratory Results 02/11/19 Range/Units 04:58 WBC 9.85 (4.8-10.8) K/uL RBC 2.89 L (4.2-5.4) M/uL Hgb 8.7 L (12.0-16.0) g/dL Hct 27.1 L (37-47) % MCV 93.8 (80-100) fL MCH 30.1 (25-34) pg MCHC 32.1 (32-36) g/dL RDW Std Deviation 50.4 H (36.4-46.3) fL RDW Coeff of Jazmyn 14.8 H (11.5-14.5) % Plt Count 292 (130-400) K/uL MPV 9.6 (7.4-10.4) fL PG Care Time/CCT Total # of Minutes Spent Total Time Spent with Patient: Total time spent is greater than 50% in coordination of care (as documented) at patient's floor/unit and/or counseling patient: (1) GI bleed GI bleed type/associated pathology: unspecified gastrointestinal hemorrhage type Qualified Code(s): K92.2 - Gastrointestinal hemorrhage, unspecified
[2019-02-11] MEDS ORDERED: LORazepam 0.5 MG/1 ML VIAL IV STA ×2 (17:28→17:37)
[2019-02-12] MEDS: HYDROCODONE/ACETAMOPHEN 5/325MG TAB PO PRN ×4 (04:08→19:54)
[2019-02-12] MEDS: LEVOTHYROXINE SODIUM 88 MCG TABLET PO SCH (05:51)
[2019-02-12 05:58] LABS: Basophils # (auto) 0.02 K/uL (0-0.2); Basophils % (auto) 0.2 %; Eosinophils % (auto) 1.7 %; Hematocrit (blood only) 27.3 % (37-47); Hemoglobin 8.5 g/dL (12.0-16.0); Immature Granulocytes # (auto) 0.04 K/uL (0.00-0.02); Immature Granulocytes % (auto) 0.3 %; Lymphocytes # (auto) 1.25 K/uL (1.2-3.4); Lymphocytes % (auto) 10.5 %; Mean Corpuscular Hemoglobin 29.2 pg (25-34); Mean Corpuscular Hgb Conc 31.1 g/dL (32-36); Mean Corpuscular Volume 93.8 fL (80-100); Mean Platelet Volume 9.4 fL (7.4-10.4); Monocytes # (auto) 0.72 K/uL (0.11-0.59); Neutrophils # (auto) 9.71 K/uL (1.4-6.5); Neutrophils % (auto) 81.3 %; Platelet Count 284 K/uL (130-400); RDW Standard Deviation 50.9 fL (36.4-46.3); Red Blood Count 2.91 M/uL (4.2-5.4); White Blood Count 11.94 K/uL (4.8-10.8)
[2019-02-12 06:36] LABS: BUN Creatinine Ratio 13.8 (10-20); Calcium 8.4 mg/dl (8.5-10.1); Creatinine Clr Calc Pharmacy 75.2 ml/min; Est GFR (African American) 104.5; Est GFR (Non-African American) 90.1; Potassium 3.6 mmol/L (3.5-5.1)
[2019-02-12 06:37] LABS: Phosphorus 2.6 mg/dl (2.5-4.9)
--- NOTE | 2019-02-12 07:58 | Surgery Progress Note ---
Date of Service February 12, 2019 Assessment & Plan (1) Adenocarcinoma of colon: 02/12/19, right hemicolectomy tolerating a diet passing flatus and BM's had low grade temp to 99F yesterday afternoon, but has been afebrile since incisions c/d/i anticipate discharge to home today pending medicine clearance as above. feeling better this am. wounds look good. ok for dc later today. discussed her path report with her. Subjective Patient states her pain is under better control today than yesterday. She is tolerating a diet without nausea/vomiting. Continues to pass flatus and have BM's. Expresses some anxiety related to family friends who are either in the hospital or not doing well. Physical Exam Physical Exam: awake/alert Gastrointestinal (Abdomen): Inspection/Auscultation: + abdominal surgical incision (c/d/i with dermabond overtop, no signs of infection); abdomen not distended Percussion/Palpation: + abdomen tender (mildly ree- right sided incision. ) and abdomen soft Results & Data Vital Signs (Past 12 Hours) Vital Signs Temp Pulse Resp BP Pulse Ox Pulse Ox 02/12/19 07:11 36.7 C 77 18 118/67 91 02/12/19 00:05 92 02/11/19 22:57 37.0 C 84 16 102/56 L 92 PG Care Time/CCT Total # of Minutes Spent Total Time Spent with Patient: Total time spent is greater than 50% in coordination of care (as documented) at patient's floor/unit and/or counseling patient:
[2019-02-12] MEDS: PANTOprazole 40 MG TAB PO SCH ×2 (09:23→19:57)
[2019-02-12] MEDS: ENOXAPARIN INJ 40 MG/0.4 ML SYR SQ SCH (09:23)
[2019-02-12] MEDS: CYANOCOBALAMIN 500 MCG TABLET (VITAMIN B-12) PO SCH (09:23)
--- NOTE | 2019-02-12 10:38 | Hospitalist Progress Note ---
Date of Service February 12, 2019 Assessment & Plan (1) Adenocarcinoma of colon: * Patient with long standing history of fatigue, anemia. Had received 2 units PRBC prior to trip to [place] in January. Had previously had issues with anemia but since going gluten free in Mar 2017, but not until recently had she started with worsening fatgiue/anemia requiring blood transfusions in addition to IV Iron. Patient is to continue to receive IV iron and Dr. King will set up with Dr. Rowell. * Previous colonoscopy Apr [address] Becker without evidence of malignancy, however per patient, she was told she did not have good prep. * POD #7 s/p lab RIGHT hemicolectomy with Dr. Ríos (02/05) -- drain removed yesterday per surgical team * Patient presented with GI bleed, requiring additional 2 units on 02/03 during this admission for a hemoglobin down to 7. * EGD/Colonoscopy on 02/[address] 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 Per oncology, this is likely an acquired issue, but further testing will be done. * Oncology consulted - Final decisions on chemo pending on final pathology -- nodes without evidence of metastasis, will need to wait for final results--> patient scheduled for follow up with Dr. Rowell on February 19, 2019 * Tolerating regular diet * Low grade fever, 100.7 on 02/10. Afebrile for the past 24 hours. However, WBC mildy elevated at 11.8k with elevated neutrophils 81.3%. Patient does state she was "soaked" last night in her gown, but states it was similar to previous hot flashes. Did have lengthy discussion regarding incentive spirometer and need for compliance and deep breathing to prevent atelectasis and complications. Patient demonstrated understanding. If WBC continues to be elevated and crackles present or worsening in AM, would have low threshold for imaging * Upon re-evaluation this afternoon--> patient with worsening abdominal pain to 10/[address] with evidence of ileus vs low grade SBO, call to general surgery with plan to decrease diet to clear liquids, KUB in AM and repeat CBC in AM. They will re-evaluate this afternoon. (2) GI bleed: * As above * Stable -- h/h low, but stable -- increased to 8.5/27.3 * Patient to continue IV iron as outpatient -- will be coordinated by Dr. King with heme/onc * Continue home pantoprazole 40mg BID (3) Celiac disease: * Has some indiscretions occasionally, but overall very compliant with non-gluten diet. (4) Moses's thyroiditis: * TSH on 02/02 was 0.7 * Continue Synthroid 88 mcg (5) Iron deficiency: * As above -- had previously received IV Iron transfusions and PRBCs in the past several months * Continue outpatient infusions as above (6) Anxiety: * As above -- panic attack x 2 this year * Recently, mother figure critically ill in ICU dying of pancreatic CA. Given x1 dose of ativan with much relief * Will continue to monitor-- patient may benefit from low dose SSRI/SNRI/buspar in the future if symptoms persist * Will order vistaril 25mg prn as needed for now (7) DVT prophylaxis: * Lovenox Dispo: possible discharge tomorrow if pain under control/patient able to have BM Supervising Physician Co-Signing Physician Notes Attending Attestation - Chart reviewed in detail, care plan d/w KASSANDRA Arnold. I agree w/ the hope components of her documentation. 58yo female recovering from hemicolectomy for adenocarcinoma of the colon. POD #7. Due to ongoing right-sided abdominal pain CT abd/pelvis obtained -- mild low- grade ileus otherwise CT wnl. Diet down-graded as recommended by general surgery. Cont supportive care and pain control. Acute blood loss anemia 2nd to lower GI bleeding - h/h stable. Serial labs. Yasir Cohen MD Subjective Patient states her abdominal pain is much improved with the pain medication. She rates it a 7/10 compared to 10/10 following drain removal yesterday. She states it does still appear to be more right sided with radiation to her right back. Worsened with hiccups and movement. She states she tolerated breakfast this morning and tolerated it without difficulty. She has been passing gas, but no bowel movement today. She was pleased to report she had a discussion with Dr. Ríos this morning and was told it appears her lymph nodes were clear, but further treatment will still be determine at her follow up appointment with Dr. Rowell. She denies fever or chills, but states she did wake up last night and had soaked her gown with sweat. She states the bed was dry, and this is not worse than her usual hot flashes, but she had not been getting them as bad while on PrimPro by her [employer] up until her hip surgery November 08. She states that she was told if she could do without the medication. She states she was up and moving a lot two days ago, but did not do a lot of walking yesterday due to feeling under the weather and increased anxiety. She states the ativan was very helpful last night and she denies any further palpitations or racing heart. She would like to try something prn for anxiety given the difficult year, and is agreeable to trial vistaril as needed with understanding that she may benefit from SSRI as an outpatient and should discuss this with her PCP. Review of Systems Constitutional: night sweat Eyes: no diplopia and no worsening vision Ear, Nose, Mouth, Throat: no sore throat and no dysphagia Respiratory: no cough and no dyspnea Cardiovascular: no chest pain, no palpitations, no edema and no calf pain Gastrointestinal: + abdominal pain (right sided) and + constipation; no nausea, no vomiting and no diarrhea/loose stools Genitourinary: no dysuria and no urinary frequency Integumentary: no rash and no lesions Neurologic: no numbness, no paresthesia and no headache(s) Psychiatric: + depression and + anxiety Hematologic / Lymphatic: + night sweats Physical Exam Constitutional: WD/WN, vitals as above no acute distress Eyes: PERRL, conjunctivae normal, anicteric sclerae Neck: trachea midline, no thyromegaly Respiratory: no respiratory distress, no labored breathing and no cough Auscultation: + crackles (right basilar crackles); no rhonchi Cardiovascular: Rate/Rhythm: regular rhythm Heart Sounds: normal S1 and normal S2; no murmur Gastrointestinal (Abdomen): Percussion/Palpation: + abdomen tender (RLQ primarily, although diffusely tender); no guarding and no hepatosplenomegaly voluntary guarding Musculoskeletal: no cyanosis or clubbing, extremities motor strength 5/5 Skin: no rashes, warm and dry Neurologic: PERRL, EOMI, accommodation nl, no face palsy, no dysarthria Psychiatric: Orientation: alert and oriented x 3 Lymphatic: no cervical or axillary lymphadenopathy Results & Data Vital Signs (Past 12 Hours) Vital Signs Temp Pulse Resp BP Pulse Ox Pulse Ox 02/12/19 07:11 36.7 C 77 18 118/67 91 02/12/19 00:05 92 02/11/19 22:57 37.0 C 84 16 102/56 L 92 Laboratory Results 02/12/19 02/12/19 Range/Units 05:35 05:35 WBC 11.94 H (4.8-10.8) K/uL RBC 2.91 L (4.2-5.4) M/uL Hgb 8.5 L (12.0-16.0) g/dL Hct 27.3 L (37-47) % MCV 93.8 (80-100) fL MCH 29.2 (25-34) pg MCHC 31.1 L (32-36) g/dL RDW Std Deviation 50.9 H (36.4-46.3) fL RDW Coeff of Jazmyn 15.0 H (11.5-14.5) % Plt Count 284 (130-400) K/uL MPV 9.4 (7.4-10.4) fL Immature Gran % (Auto) 0.3 % Neut % (Auto) 81.3 % Lymph % (Auto) 10.5 % [place] % (Auto) 6.0 % Eos % (Auto) 1.7 % Baso % (Auto) 0.2 % Immature Gran # (Auto) 0.04 H (0.00-0.02) K/uL Neut # (Auto) 9.71 H (1.4-6.5) K/uL Lymph # (Auto) 1.25 (1.2-3.4) K/uL [place] # (Auto) 0.72 H (0.11-0.59) K/uL Eos # (Auto) 0.20 (0-0.5) K/uL Baso # (Auto) 0.02 (0-0.2) K/uL Sodium 138 (136-145) mmol/L Potassium 3.6 (3.5-5.1) mmol/L Chloride 107 (98-107) mmol/L Carbon Dioxide 27 (21-32) mmol/L Anion Gap 4.0 (3-11) BUN 10 (7-18) mg/dl Creatinine 0.73 (0.6-1.2) mg/dl Est Cr Clr Drug Dosing 75.2 ml/min Est GFR ( Amer) 104.5 Est GFR (Non-Af Amer) 90.1 BUN/Creatinine Ratio 13.8 (10-20) Glucose 102 H (70-99) mg/dl Calcium 8.4 L (8.5-10.1) mg/dl Phosphorus 2.6 (2.5-4.9) mg/dl Magnesium 2.0 (1.8-2.4) mg/dl Diagnostic Findings CT abd pelvis IV con only IMPRESSION: 1. Postsurgical changes of a right hemicolectomy and ileocolonic anastomosis 2. Mildly prominent fluid-filled distal small bowel loops, likely representing a post surgical ileus or low-grade partial small bowel obstruction secondary to edema at the anastomotic site 3. No evidence of intra-abdominal abscess 4. Areas of fluid and gas within the abdominal wall, likely postsurgical 5. Small fat-containing anterolateral left-sided abdominal wall hernia, possibly secondary to a trocar site. PG Care Time/CCT Total # of Minutes Spent Total Time Spent with Patient: Total time spent is greater than 50% in coordination of care (as documented) at patient's floor/unit and/or counseling patient: (1) GI bleed GI bleed type/associated pathology: unspecified gastrointestinal hemorrhage type Qualified Code(s): K92.2 - Gastrointestinal hemorrhage, unspecified
--- NOTE | 2019-02-12 10:41 | Progress Note ---
DATE: 02/12/2019 SUBJECTIVE: The patient says she is feeling better today. She still has pain in the right side of her abdomen radiating around to the right flank. However, she says the pain is not quite as severe. Her appetite seems to be reasonable. She has had food taste good. She has been eating normal meals and has not had problems with nausea or vomiting. She has passed small amounts of gas, but has not had another bowel movement in the past 24 hours. She has no real chest pain or cough. OBJECTIVE: GENERAL: On physical exam when seen, she appeared to be somewhat pale. However, she seemed more comfortable than she was yesterday. VITAL SIGNS: Her blood pressure is 118/67, pulse 77 and regular, respiratory rate 18, her pulse ox is 91% on room air. She is afebrile (36.7). SKIN: Turgor is normal. Her incisions are clean without associated surrounding cellulitis. There is some minimal ecchymoses around her incisions. She has no palpable lymphadenopathy. HEAD: Normal. EYES: Grossly normal. There is no conjunctival icterus. EARS, NOSE, MOUTH AND THROAT: Unremarkable. Oral mucous membranes are moist. NECK: Supple. She has no jugular venous distention, carotid bruit or thyromegaly. CHEST: Shows some atelectatic rales at the right base. It is otherwise clear. CARDIAC: Shows a regular rhythm. I hear no murmur or gallop. ABDOMEN: Remains tender on the right side. She has some voluntary guarding. Bowel sounds are present. EXTREMITIES: Show no edema or calf tenderness. NEUROLOGIC: Unremarkable. PERTINENT LABORATORY WORK: From today shows a white count of 11,940 with 81.3% neutrophils, 10.5% lymphocytes, 6.0% monocytes, 1.7% eosinophils and 0.2% basophils. Her hemoglobin is 8.5 with a hematocrit of 27.3. Red cell indices are normal, but much of her red cells are from transfused blood. Her platelet count is 284,000. Her clinical chemistries from today show a sodium of 138 mmol/L, potassium 3.6 mmol/L, chloride 107 mmol/L and CO2 content 27 mmol/L. Her BUN is 10, creatinine 0.73. Random blood sugar is 102, her serum calcium is 8.4, phosphate 2.6 and her magnesium 2.0. ASSESSMENT: Certainly the patient looks better than yesterday. She is eating. Her pain seems to be better than it was yesterday. The plan is for her to be discharged today. Given what appears to be improvement, I certainly see no reason that cannot be the case. PLAN: We will see her in followup in about 1 week. That will be the same day she has an appointment scheduled here with Dr. Rowell in Oncology. I encouraged her to continue to use her incentive inspirometer at home given the physical finding of atelectatic rales at the right base. I cautioned her that if she was not breathing deeply that she would be at risk for the development of a pulmonary infection. No other immediate recommendations. I will see her in followup again in about 1 week, but she was told to call if any new developments occur.
[2019-02-12] MEDS ORDERED: bisacodyL 5 MG TABEC PO ONE (11:07)
[2019-02-12] MEDS ORDERED: DOCUSATE SODIUM 100 MG CAP PO ONE (11:07)
[2019-02-12] MEDS ORDERED: IOVERSOL 100ml IV PRN (11:17)
[2019-02-12] MEDS: HYDROmorphone INJ 1 MG/ML SYRINGE IV PRN (11:30)
--- NOTE | 2019-02-12 11:38 | CT Scan Report ---
CT abd pelvis IV con only CLINICAL HISTORY: Right-sided abdominal pain radiating to the back. History of colonic tumor resectio n. COMPARISON STUDY: 02/04/2019 TECHNIQUE: The patient was scanned in a dynamic helical fashion during intravenous administration of 94 cc of Optiray 320. A dose lowering technique was utilized adhering to the principles of ALARA. CT DOSE: 385.16 mGy.cm FINDINGS: Lower chest: There are bibasilar opacities, statistically atelectatic. Liver: There are scattered subcentimeter hepatic hypodensities, likely representing cysts. Gallbladder: Mildly distended. No calculi identified. Spleen: Normal in size and attenuation. Pancreas: Unremarkable. Adrenal glands: Unremarkable. Kidneys: There is symmetric renal cortical enhancement. The kidneys are normal in size without hydron ephrosis. Bowel: There are postsurgical changes of a right hemicolectomy with ileocolonic anastomosis. There ar e mildly prominent fluid-filled distal small bowel loops with air-fluid levels, likely representing a postsurgical ileus, or low-grade obstruction secondary to edema at the anastomotic site. There is a large amount of formed fecal material within the transverse colon. There is mild edema within the fat adjacent to the anastomosis, likely postsurgical. There are no fluid collections to indicate an absc ess. Peritoneum: There is no intraperitoneal free air or abdominal ascites. Vasculature: The abdominal aorta is normal in course and caliber. Adenopathy: None. Pelvic viscera: Evaluation of pelvis is limited due to beam hardening artifact from a left hip arthro plasty. No pathologic pelvic masses are visualized. Skeletal structures: There is a small fat-containing anterior lateral abdominal wall hernia, potentia lly related to a trocar site. There is gas and fluid within the right anterior abdominal wall, likely postsurgical. There is also a small amount of fluid and gas present within the subcutaneous tissues of both flanks. IMPRESSION: 1. Postsurgical changes of a right hemicolectomy and ileocolonic anastomosis 2. Mildly prominent fluid-filled distal small bowel loops, likely representing a post surgical ileus or low-grade partial small bowel obstruction secondary to edema at the anastomotic site 3. No evidence of intra-abdominal abscess 4. Areas of fluid and gas within the abdominal wall, likely postsurgical 5. Small fat-containing anterolateral left-sided abdominal wall hernia, possibly secondary to a troca r site. Electronically signed by: Derik Pizarro M.D. 02/12/2019 11:37 AM
[2019-02-12] MEDS ORDERED: HYDROmorphone INJ 1 MG/ML SYRINGE IV ONE (12:24)
[2019-02-12] MEDS: D5W AND 1/2NSS 1,000 ML IV SCH (13:06)
[2019-02-12] MEDS: ONDANSETRON INJ 2 MG/ML 2 ML VIAL IV PRN (17:29)
[2019-02-12] MEDS: POLYETHYLENE (MIRALAX) 17 GM PACK PO SCH (18:31)
[2019-02-13] MEDS: HYDROCODONE/ACETAMOPHEN 5/325MG TAB PO PRN ×5 (00:05→20:30)
[2019-02-13] MEDS: D5W AND 1/2NSS 1,000 ML IV SCH ×2 (00:42→13:38)
[2019-02-13] MEDS: LEVOTHYROXINE SODIUM 88 MCG TABLET PO SCH (05:54)
[2019-02-13 07:18] LABS: Basophils # (auto) 0.02 K/uL (0-0.2); Basophils % (auto) 0.2 %; Eosinophils # (auto) 0.19 K/uL (0-0.5); Eosinophils % (auto) 1.5 %; Hematocrit (blood only) 26.4 % (37-47); Hemoglobin 8.1 g/dL (12.0-16.0); Immature Granulocytes # (auto) 0.05 K/uL (0.00-0.02); Immature Granulocytes % (auto) 0.4 %; Lymphocytes # (auto) 1.26 K/uL (1.2-3.4); Lymphocytes % (auto) 10.1 %; Mean Corpuscular Hemoglobin 28.8 pg (25-34); Mean Corpuscular Hgb Conc 30.7 g/dL (32-36); Mean Platelet Volume 9.4 fL (7.4-10.4); Monocytes # (auto) 0.74 K/uL (0.11-0.59); Monocytes % (auto) 5.9 %; Neutrophils # (auto) 10.24 K/uL (1.4-6.5); Neutrophils % (auto) 81.9 %; Platelet Count 319 K/uL (130-400); RDW Standard Deviation 51.1 fL (36.4-46.3); Red Blood Count 2.81 M/uL (4.2-5.4)
[2019-02-13 07:49] LABS: BUN Creatinine Ratio 12.7 (10-20); Calcium 8.6 mg/dl (8.5-10.1); Creatinine Clr Calc Pharmacy 77.4 ml/min; Est GFR (African American) 108.1; Est GFR (Non-African American) 93.2; Potassium 3.7 mmol/L (3.5-5.1)
--- NOTE | 2019-02-13 07:55 | XRay Report ---
KUB CLINICAL HISTORY: Generalized abdominal pain. FINDINGS: 2 AP supine abdominal radiographs are correlated with abdominal CT dated 02/12/2019. There i s no radiographic evidence of bowel obstruction. Suture material projects over the right mid abdomen. No evidence of intraperitoneal free air is seen on these supine images. Pelvic phleboliths are obser marychuy. The skeletal structures are osteopenic and appear intact. A left hip arthroplasty is in place. IMPRESSION: There is no radiographic evidence of bowel obstruction. Electronically signed by: Jass Huertas M.D. 02/13/2019 7:54 AM
[2019-02-13] MEDS: PANTOprazole 40 MG TAB PO SCH ×2 (08:15→20:30)
[2019-02-13] MEDS: CYANOCOBALAMIN 500 MCG TABLET (VITAMIN B-12) PO SCH (08:15)
[2019-02-13] MEDS: POLYETHYLENE (MIRALAX) 17 GM PACK PO SCH (08:15)
--- NOTE | 2019-02-13 10:04 | Surgery Progress Note ---
Date of Service February 13, 2019 Assessment & Plan (1) Adenocarcinoma of colon: 02/13/19 h/o lap right hemicolectomy Patient had increased abdominal pain yesterday, prompting a CT a/p that revealed concern for post surgical ileus vs low grade partial SBO. She was since backed down to clear liquids Today abdominal pain is somewhat improved, KUB this AM revealed no evidence of bowel obstruction Patient is passing gas but no BM in >24 hours. Continue clear liquids until meaningful return of bowel function WBC uptrending somewhat to 12.5. Patient afebrile Encourage activity as tolerates and pulmonary toilet with incentive spirometry as above. no complaints currently other than tired. pain controlled. yann diet. recheck cbc tomorrow. KUB better-- I'm ok advancing diet. I do not want any laxatives however. hopefully we can d/c home tomorrow. Subjective Patient states she had a decent night and got some sleep. Still having a decent amount of pain on the right side. She is passing gas but, no BM. She is tolerating clears without nausea/vomiting. Physical Exam Physical Exam: awake/alert Respiratory: normal respiratory effort Gastrointestinal (Abdomen): Inspection/Auscultation: + abdomen distended (mild) and + abdominal surgical incision (c/d/i with dermabond overtop, no sign of infection ) Percussion/Palpation: + abdomen tender (right sided abdomen ) and abdomen soft Results & Data Vital Signs (Past 12 Hours) Vital Signs Temp Pulse Resp BP Pulse Ox Pulse Ox 02/13/19 08:21 92 02/13/19 06:57 36.9 C 73 16 116/70 02/13/19 00:05 95 02/12/19 23:14 36.7 C 76 16 106/56 L 95 KUB CLINICAL HISTORY: Generalized abdominal pain. FINDINGS: 2 AP supine abdominal radiographs are correlated with abdominal CT dated 02/12/2019. There is no radiographic evidence of bowel obstruction. Suture material projects over the right mid abdomen. No evidence of intraperitoneal free air is seen on these supine images. Pelvic phleboliths are observed. The skeletal structures are osteopenic and appear intact. A left hip arthroplasty is in place. IMPRESSION: There is no radiographic evidence of bowel obstruction. Electronically signed by: Jass Huertas M.D. 02/13/2019 7:54 AM PG Care Time/CCT Total # of Minutes Spent Total Time Spent with Patient: Total time spent is greater than 50% in coordination of care (as documented) at patient's floor/unit and/or counseling patient:
--- NOTE | 2019-02-13 10:54 | Progress Note ---
DATE: 02/13/2019 SUBJECTIVE: Mrs. Sorenson was held yesterday for an abdominal CT scan. That showed evidence of some air and fluid in the anterior abdominal wall that was felt to be postsurgical. Additionally, she had evidence of some fluid collections and air fluid levels within the distal small bowel which was felt to represent either a post-surgical ileus or partial small-bowel obstruction. There was no evidence of an intra-abdominal abscess nor was there evidence of an abdominal wall abscess. She also had a small fat containing anterolateral left-sided abdominal wall hernia which was felt to be possibly related to a trocar site from her laparoscopic surgery. She continues to eat, although her diet was cut back to a full liquid diet after the results of the CT scan were recognized. She has had no true abdominal pain and continues to pass gas and have small bowel movements. She is having some sweating at night which she attributes to the room being warm and the plastic or rubberized mattress cover that is on her bed. She has no shaking chills. She has not had any fevers. She would like to go home. OBJECTIVE: GENERAL: On physical exam when seen, she does appear relatively well, but still in some discomfort related to her anterior abdomen on the right side. Any movement seems to aggravate her pain. She has a difficult time using the incentive inspirometer because of abdominal discomfort. VITAL SIGNS: Her blood pressure is 116/70, her pulse 73 and regular, respiratory rate 16, her pulse ox 92% on room air. She is afebrile (36.9). Her maximum temperature in the past 24 hours was 37.4. SKIN: Shows no rash or infiltrative skin disease. She does appear to be slightly pale. She has the abdominal wall incisions with some minimal ecchymoses around the largest of those incisions. Skin turgor is normal. LYMPHATICS: Show no palpable lymphadenopathy. HEAD: Normal. EYES: Grossly normal. She has no conjunctival icterus. EARS, NOSE, MOUTH, AND THROAT: Unremarkable. Her oral mucous membranes are moist. NECK: Supple. She has no jugular venous distention, carotid bruit or thyromegaly. CHEST: Shows some bibasilar atelectatic rales that clear with deep breathing. Her chest is otherwise clear with no wheezes or rhonchi. CARDIAC: Shows a regular rhythm. S1 and S2 are normal. I hear no definite murmur or gallop. ABDOMEN: Remains tender on the right side. No definite organomegaly or mass, but the exam is difficult because of her voluntary guarding. Bowel sounds are present. EXTREMITIES: Show no cyanosis, clubbing or peripheral edema. She has no calf tenderness. NEUROLOGIC: Shows no lateralizing changes. PERTINENT LABORATORY WORK: From today shows a white count of 12,500 with a slight shift to the left with 81.9% neutrophils, 10.1% lymphocytes, 5.9% monocytes, 1.5% eosinophils and 0.2% basophils. Her hemoglobin is 8.1, her hematocrit 26.4. Red cell indices are normal (she does have a great deal of transfused blood). Her platelet count is 319,000. Clinical chemistries from today show a sodium of 137 mmol/L, potassium 3.7 mmol/L, chloride is 106 mmol/L, and CO2 content 27 mmol/L. Her BUN is 9. Her creatinine 0.71. Her random blood sugar was 93. Her serum calcium is 8.6. A flat plate of her abdomen done today shows no evidence of a bowel obstruction. ASSESSMENT: Slow postoperative recovery. She may have a minimal ileus noted on CT scan, but certainly there is no definite evidence of obstruction either from physical exam or from her symptoms and x-ray. She has a minimal elevation of her white blood cell count. Certainly that could simply be postsurgical as well. RECOMMENDATIONS: I think that if she can tolerate a regular diet (gluten free) then I do think that she could be discharged to home. Certainly she would like that to be today. If she tolerates lunch without symptoms, perhaps late this afternoon or this evening, she could be discharged. I have already made arrangements for her outpatient followup with me on a day to coincide with her visit with Dr. Rowell and perhaps Dr. Ríos.
--- NOTE | 2019-02-13 13:19 | XRay Report ---
XR chest 2V PA/lateral HISTORY: 58 years-old Female tachycardia, pain b/w shoulders, atelectasis v inf acute tachycardia wi th mid thoracic pain COMPARISON: KUB of same day, CT abdomen and pelvis 02/12/2019, chest radiograph 02/02/2019 TECHNIQUE: PA and lateral views of the chest FINDINGS: Cardiac silhouette is enlarged. No pneumothorax or overt pulmonary edema. Mild right hemidiaphragmati c elevation. Linear bibasilar consolidative opacities are noted. No large pleural effusion. Degenerat naeem changes of the spine. IMPRESSION: Mild right hemidiaphragm elevation with linear bibasilar consolidative opacities redemons trated suggestive of probable atelectasis. A superimposed pneumonia or aspiration pneumonitis would b e difficult to exclude. Correlate clinically. The above report was generated using voice recognition software. It may contain grammatical, syntax o r spelling errors. Electronically signed by: Mazin Damon M.D. 02/13/2019 1:18 PM
[2019-02-13] MEDS: DOCUSATE SODIUM/SENNA 50/8.6MG TAB PO SCH ×2 (13:35→13:40)
[2019-02-13] MEDS: ENOXAPARIN INJ 40 MG/0.4 ML SYR SQ SCH ×2 (13:38→16:16)
[2019-02-13 14:26] LABS: Albumin Level 1.9 gm/dl (3.4-5.0); Bilirubin Direct 0.1 mg/dl (0-0.2); Bilirubin,Total 0.3 mg/dl (0.2-1); Total Protein 5.2 gm/dl (6.4-8.2)
--- NOTE | 2019-02-13 15:37 | Hospitalist Progress Note ---
Date of Service February 13, 2019 Assessment & Plan (1) Abdominal pain: * Patient with long standing history of fatigue, anemia. Had received 2 units PRBC prior to trip to [place] in January. Had previously had issues with anemia but since going gluten free in Mar 2017, but not until recently had she started with worsening fatgiue/anemia requiring blood transfusions in addition to IV Iron. Previous colonoscopy Apr [address] Becker without evidence of malignancy. * POD #8 s/p lab RIGHT hemicolectomy with Dr. Ríos (02/05) -- drain removed 02/11 per surgical team * Low grade fever of 100.7 on 02/10. Patient has remained afebrile since that time. * Upon re-evaluation yesterday evening after being notified of extreme worsening of abdominal pain, 12/20, patient sent for CT abd/pelvis with evidence of ileus vs low grade SBO--> call to general surgery was made to re-evaluate patient last evening with plan for KUB today and backed diet to clears * KUB today without evidence of obstruction * Diet advanced for lunch * WBC is elevated at 12.5k today with slight left shift --> likely secondary to atelectasis/pulmonary toilet as patient having difficult time taking deep breaths. Repeat discussion regarding incentive spirometer and need for compliance and deep breathing to prevent atelectasis and complications. Also encouraged frequent ambulation. Patient demonstrated understanding. * Patient with pain between shoulder blades and tachycardia after going for walk this afternoon --> CXR without abnormality, EKG with occassional PACs. * CT Abd/pelvis last night did show some mild distension of gallbladder, without calculi. * --> With recent symptoms of right sided abdominal pain and now radiation to back and between shoulder blades, ??if she is having biliary colic vs pancreatitis as well * Lipase pending * LFTs pending * UA pending (2) Adenocarcinoma of colon: * As above * Patient presented with GI bleed, requiring additional 2 units on 02/03 during this admission for a hemoglobin down to 7. * EGD/Colonoscopy on 02/[address] 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 Per oncology, this is likely an acquired issue, but further testing will be done. * Oncology consulted - Final decisions on chemo to be determined at follow up visit with Dr. Rowell on 02/19/19 -- nodes without evidence of metastasis * Patient is to continue to receive IV iron and Dr. King will set up with Dr. Rowell. (3) GI bleed: * As above * Stable -- h/h low, but stable -- 8.1/26.4 today * Patient to continue IV iron as outpatient -- will be coordinated by Dr. King with heme/onc * Continue home pantoprazole 40mg BID * Will repeat CBC in AM (4) Celiac disease: * Has some indiscretions occasionally, but overall very compliant with non-gluten diet. (5) Moses's thyroiditis: * TSH on 02/02 was 0.7 * Continue Synthroid 88 mcg (6) Iron deficiency: * As above -- had previously received IV Iron transfusions and PRBCs in the past several months * Continue outpatient infusions as above (7) Anxiety: * As above -- panic attack x 2 this year * Recently, mother figure critically ill in ICU dying of pancreatic CA. Given x1 dose of ativan with much relief on 02/11 * Will continue to monitor-- patient may benefit from low dose SSRI/SNRI/buspar in the future if symptoms persist * Will order vistaril 25mg prn as needed for now (8) DVT prophylaxis: * Lovenox Dispo: possible discharge tomorrow if pain under control/patient able to have BM Supervising Physician Co-Signing Physician Notes Attending Attestation - Pt seen/examined, chart reviewed in detail, care plan d/w KASSANDRA Arnold. I agree w/ the hope components of her documentation. 58yo female recovering from hemicolectomy for adenocarcinoma of the colon. POD #8. Had CT abd/pelvis yesterday showing mild low-grade ileus. IS passing flatus and clear liquids does not make abdominal pain worse. When I came to see her today she was in tears. was at bedside. They reported multiple psychosocial stressors. Pain is mainly right-sided (near her main incision) and radiates to right flank then the right lower back. It radiates in a dermatomal type distribution. Deep breathing makes the pain worse. Movement makes it worse. exam - gen - tearful, in distress due to pain mouth - MMM heart - RRR lungs - bibasilar rales abd - mildly distended, BS+, tender RUQ and RLQ; mildly tender right flank back - paraspinal tenderness on right in same plane as right abdominal pain skin - abd wall incisions clean ext - 1-2+ b/l edema Pain discussed with Ms Arnold. Ms Arnold then discussed the pain issues with surgery again. Pain almost sounds neuropathic in additional to visceral pain. Trial of lidoderm patches, gabapentin, toradol. May cont narcotics prn. UTI - possible - continue antibiotics. acute blood loss anemia - H/H stable. Yasir Cohen MD Subjective Patient evaluated this morning. She states she did have an ok night and was able to sleep. She states the vistaril helped. Abdominal pain rated 5/10 through the night and she rates it 8/10 currently. She states it is much better than during CT yesterday, but she continues to have a significant amount of pain. She states it is primarily right sided with radiation to her back, but is painful throughout her whole abdomen. She states she has been trying to use the incentive spirometer, but she is having a lot of pain when trying to take a deep breath. She states she tolerated breakfast ok, and would like to advance her diet for lunch. She did have a lot of gas last evening and this morning, but has continued to be without BM in over 24 hours. Review of Systems Constitutional: no fever and no chills Ear, Nose, Mouth, Throat: no sore throat and no dysphagia Respiratory: no cough and no dyspnea Cardiovascular: no chest pain, no palpitations and no edema Gastrointestinal: + abdominal pain (right sided) and + constipation; no nausea, no vomiting and no diarrhea/loose stools Genitourinary: no dysuria and no urinary frequency Psychiatric: + depression and + anxiety Endocrine: + cold intolerance Physical Exam Constitutional: WD/WN, vitals as above Neck: trachea midline, no thyromegaly Respiratory: normal respiratory effort; no respiratory distress, no labored breathing and no cough Auscultation: + crackles (right basilar crackles); no rhonchi Cardiovascular: Rate/Rhythm: regular rhythm Heart Sounds: normal S1 and normal S2; no murmur Gastrointestinal (Abdomen): Inspection/Auscultation: + abdomen distended (mild) and normal bowel sounds Percussion/Palpation: + abdomen tender (RLQ primarily, although diffusely tender) voluntary guarding abdominal surgical incision (c/d/i with dermabond overtop, no evidence of infection) Musculoskeletal: no cyanosis or clubbing, extremities motor strength 5/5 Psychiatric: Orientation: alert and oriented x 3 Affect: + anxious affect Lymphatic: no cervical or axillary lymphadenopathy Results & Data Vital Signs (Past 12 Hours) Vital Signs Temp Pulse Resp BP Pulse Ox 02/13/19 08:21 92 02/13/19 06:57 36.9 C 73 16 116/70 Laboratory Results 02/13/19 02/13/19 02/13/19 Range/Units 06:40 06:40 06:40 WBC 12.50 H (4.8-10.8) K/uL RBC 2.81 L (4.2-5.4) M/uL Hgb 8.1 L (12.0-16.0) g/dL Hct 26.4 L (37-47) % MCV 94.0 (80-100) fL MCH 28.8 (25-34) pg MCHC 30.7 L (32-36) g/dL RDW Std Deviation 51.1 H (36.4-46.3) fL RDW Coeff of Jazmyn 15.0 H (11.5-14.5) % Plt Count 319 (130-400) K/uL MPV 9.4 (7.4-10.4) fL Immature Gran % (Auto) 0.4 % Neut % (Auto) 81.9 % Lymph % (Auto) 10.1 % Geary % (Auto) 5.9 % Eos % (Auto) 1.5 % Baso % (Auto) 0.2 % Immature Gran # (Auto) 0.05 H (0.00-0.02) K/uL Neut # (Auto) 10.24 H (1.4-6.5) K/uL Lymph # (Auto) 1.26 (1.2-3.4) K/uL Geary # (Auto) 0.74 H (0.11-0.59) K/uL Eos # (Auto) 0.19 (0-0.5) K/uL Baso # (Auto) 0.02 (0-0.2) K/uL Sodium 137 (136-145) mmol/L Potassium 3.7 (3.5-5.1) mmol/L Chloride 106 (98-107) mmol/L Carbon Dioxide 27 (21-32) mmol/L Anion Gap 4.0 (3-11) BUN 9 (7-18) mg/dl Creatinine 0.71 (0.6-1.2) mg/dl Est Cr Clr Drug Dosing 77.4 ml/min Est GFR ( Amer) 108.1 Est GFR (Non-Af Amer) 93.2 BUN/Creatinine Ratio 12.7 (10-20) Glucose 93 (70-99) mg/dl Calcium 8.6 (8.5-10.1) mg/dl Total Bilirubin 0.3 (0.2-1) mg/dl Direct Bilirubin 0.1 (0-0.2) mg/dl AST 25 (15-37) U/L ALT 32 (12-78) U/L Alkaline Phosphatase 149 H (45-117) U/L Total Protein 5.2 L (6.4-8.2) gm/dl Albumin 1.9 L (3.4-5.0) gm/dl Lipase 39 L (73-393) U/L Diagnostic Findings KUB CLINICAL HISTORY: Generalized abdominal pain. FINDINGS: 2 AP supine abdominal radiographs are correlated with abdominal CT dated 02/12/2019. There is no radiographic evidence of bowel obstruction. Suture material projects over the right mid abdomen. No evidence of intraperitoneal free air is seen on these supine images. Pelvic phleboliths are observed. The skeletal structures are osteopenic and appear intact. A left hip arthroplasty is in place. IMPRESSION: There is no radiographic evidence of bowel obstruction. XR chest 2V PA/lateral COMPARISON: KUB of same day, CT abdomen and pelvis 02/12/2019, chest radiograph 02/02/2019 FINDINGS: Cardiac silhouette is enlarged. No pneumothorax or overt pulmonary edema. Mild right hemidiaphragmatic elevation. Linear bibasilar consolidative opacities are noted. No large pleural effusion. Degenerative changes of the spine. IMPRESSION: Mild right hemidiaphragm elevation with linear bibasilar consolidative opacities redemonstrated suggestive of probable atelectasis. A superimposed pneumonia or aspiration pneumonitis would be difficult to exclude. Correlate clinically. PG Care Time/CCT Total # of Minutes Spent Total Time Spent with Patient: Total time spent is greater than 50% in coordination of care (as documented) at patient's floor/unit and/or counseling patient: (1) GI bleed GI bleed type/associated pathology: unspecified gastrointestinal hemorrhage type Qualified Code(s): K92.2 - Gastrointestinal hemorrhage, unspecified
[2019-02-13 16:41] LABS: Appearance Urine Clear (Clear); Bacteria Urine Automated 4+ (Negative); Bilirubin Urine Negative (Negative); Blood Urine Negative (Negative); Cast Urine Automated 0 /lpf (0-5); Color Urine Yellow; Glucose Urine UA Negative (Negative); Ketones Urine Negative (Negative); Leukocyte Esterase Urine Trace (Negative); Nitrite Urine Positive (Negative); Protein Urine Negative (Negative); RBC Urine Automated 0-4 /hpf (0-4); Specific Gravity Urine 1.013 (1.000-1.030); Urobilinogen Urine Negative (Negative); pH Urine 6.5 (4.5-7.5)
[2019-02-13] MEDS: ERTAPENEM SODIUM 1,000 MG in SODIUM CHLORIDE 0.9% 50 ML IV SCH (20:33)
[2019-02-14] MEDS: D5W AND 1/2NSS 1,000 ML IV SCH ×2 (02:09→13:58)
[2019-02-14] MEDS: HYDROCODONE/ACETAMOPHEN 5/325MG TAB PO PRN ×5 (02:13→23:37)
[2019-02-14] MEDS: ONDANSETRON INJ 2 MG/ML 2 ML VIAL IV PRN (02:14)
[2019-02-14] MEDS: LEVOTHYROXINE SODIUM 88 MCG TABLET PO SCH (06:01)
[2019-02-14 07:16] LABS: Hemoglobin 7.9 g/dL (12.0-16.0); Mean Corpuscular Hemoglobin 29.4 pg (25-34); Mean Corpuscular Hgb Conc 31.6 g/dL (32-36); Mean Corpuscular Volume 92.9 fL (80-100); Mean Platelet Volume 8.8 fL (7.4-10.4); Platelet Count 332 K/uL (130-400); RDW Coefficient of Variation 15.1 % (11.5-14.5); RDW Standard Deviation 50.6 fL (36.4-46.3); Red Blood Count 2.69 M/uL (4.2-5.4); White Blood Count 11.09 K/uL (4.8-10.8)
[2019-02-14 07:32] LABS: Albumin Level 1.6 gm/dl (3.4-5.0); BUN Creatinine Ratio 15.6 (10-20); Calcium 7.9 mg/dl (8.5-10.1); Creatinine Clr Calc Pharmacy 73.2 ml/min; Est GFR (African American) 101.1; Est GFR (Non-African American) 87.2; Potassium 3.6 mmol/L (3.5-5.1)
[2019-02-14 07:35] LABS: Albumin Globulin Ratio 0.5 (0.9-2); Bilirubin,Total 0.2 mg/dl (0.2-1); Globulin 3.2 gm/dl (2.5-4.0); Total Protein 4.8 gm/dl (6.4-8.2)
[2019-02-14] MEDS: PANTOprazole 40 MG TAB PO SCH ×2 (07:52→20:26)
[2019-02-14] MEDS: CYANOCOBALAMIN 500 MCG TABLET (VITAMIN B-12) PO SCH (07:52)
--- NOTE | 2019-02-14 10:42 | Progress Note ---
DATE: 02/14/2019 SUBJECTIVE: The patient is becoming increasingly frustrated with her long hospital stay. However, she continues to have a right-sided abdominal pain. She is taking analgesics about every 4 hours. According to her , she is having somewhat of an easier time getting out of bed with less in the way of pain. She has no pulmonary symptoms. She has no urinary symptoms at the current time. She still has somewhat of an appetite and is able to eat. She has passed gas. She has had small bowel movements. Yesterday, urinalysis showed 4+ bacteria. There was concern for urinary tract infection and therefore she was started on ertapenem pending a urine culture. OBJECTIVE: GENERAL: On physical exam at the time seen, she appears as a frustrated and somewhat depressed woman of about her stated age of 58. VITAL SIGNS: Her blood pressure is 129/70, her pulse is 74 and regular, respiratory rate 16, her pulse ox 96% on room air. She is afebrile with temperature of 36.6 degrees. SKIN: Shows normal skin turgor. She has the abdominal incisions previously noted with some minimal ecchymoses around the largest of the abdominal incisions. She has no particular rash. There is no infiltrative skin disease. LYMPHATICS: Show no palpable lymphadenopathy. HEAD: Normal. EYES: Grossly normal. There is no conjunctival icterus. EARS, NOSE, MOUTH AND THROAT: Unremarkable. Oral mucous membranes are moist. NECK: Supple. There is no jugular venous distention, carotid bruit or thyromegaly. CHEST: Shows some atelectatic rales at the right base extending about intermediate up the chest. She has no wheezes or rhonchi. The left chest is clear. CARDIAC: Shows a regular rhythm. S1 and S2 are normal. I hear no murmur or gallop. ABDOMEN: Still shows voluntary guarding on the right side. Bowel sounds are present. There is no obvious organomegaly or mass. BACK: Shows no CVA tenderness or tenderness over the dorsal spine. EXTREMITIES: Show no cyanosis, clubbing or peripheral edema. She has no calf tenderness. NEUROLOGIC: Shows no lateralizing changes. LABORATORY WORK: From today shows a white count of 11,090. A differential was not done. Her hemoglobin is 7.9, her hematocrit is 25.0, platelet count 332,000. Her clinical chemistries show a sodium of 136 mmol/L, potassium 3.6 mmol/L, chloride is 107 mmol/L and CO2 content 25 mmol/L. Her BUN is 12, her creatinine 0.75. Her serum calcium is 7.9. Random blood sugar is 98. Her total bilirubin is 0.2. Her AST 26, her ALT 35, her alkaline phosphatase stable at 149. Her total protein is 4.8, her albumin is 1.6. ASSESSMENT: The patient is very slow to recover from her laparoscopic hemicolectomy. 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 Slow to recover from her surgery. I think most of her pain is musculoskeletal. The critical review of her urinalysis does show that she has many bacteria. However, she has only 1-5 white cells and many epithelial cells. This is more consistent with a contaminant. I think it is highly unlikely that she has a meaningful urinary tract infection that is contributing to her symptoms. She has not been febrile. Her white blood cell count is high, but she is under a significant degree of pain and stress which could lead to somewhat of an elevation. RECOMMENDATIONS: I think that she could be safely discharged to home. Certainly there would be little harm in a brief course of oral antibiotics if that would make everyone feel more comfortable. However, again I think that there is not a significant amount of evidence to support a meaningful urinary tract infection at this time. Our plans for followup remain unchanged. I again encouraged her to use her incentive inspirometer particularly given what appears to be significant atelectasis on the right side from her splinting secondary to ____.
[2019-02-14] MEDS: ENOXAPARIN INJ 40 MG/0.4 ML SYR SQ SCH (10:45)
[2019-02-14 11:00] LABS: Basophils # (auto) 0.03 K/uL (0-0.2); Basophils % (auto) 0.3 %; Eosinophils # (auto) 0.24 K/uL (0-0.5); Eosinophils % (auto) 2.1 %; Immature Granulocytes # (auto) 0.03 K/uL (0.00-0.02); Immature Granulocytes % (auto) 0.3 %; Lymphocytes # (auto) 1.43 K/uL (1.2-3.4); Lymphocytes % (auto) 12.5 %; Monocytes # (auto) 0.75 K/uL (0.11-0.59); Monocytes % (auto) 6.6 %; Neutrophils # (auto) 8.93 K/uL (1.4-6.5); Neutrophils % (auto) 78.2 %
[2019-02-14] MEDS: DOCUSATE SODIUM/SENNA 50/8.6MG TAB PO SCH (11:13)
[2019-02-14 11:51] LABS: Tear Drop Cells Occasional
--- NOTE | 2019-02-14 13:39 | Discharge Summary ---
Date of Service February 15, 2019 Admission HPI Per Admitting Provider The patient is 58-year-old female with history of iron deficiency anemia and history of celiac disease. She has received IV iron and blood transfusions in the past. The patient has been complaining of generalized weakness and fatigue for last 1 month. She called her family physician yesterday who advised her to go to the ER. Stool for occult blood is positive in the ER. The patient is currently on iron supplements. She denies any bloody stools. No hematemesis. Her last colonoscopy was last year. She has history of chronic constipation. She is also complaining of some nonspecific pain in the lower abdomen. She was started on aspirin after her left hip arthroplasty on November 08. She will be admitted for further evaluation and management. Admission Exam Per Admitting Provider Physical Exam: GENERAL : No acute distress EYES: No icterus, gaze conjugate NOSE: No evidence of epistaxis MOUTH: No lesions or candidiasis, mucosa moist NECK: Supple LUNGS: CTA B/L, no wheezes, rales or rhonchi HEART: Regular, rate controlled ABDOMEN: Soft, NT, ND, BS Present EXTREMITIES: No LE edema, pedal pulses intact NEURO: A&OX3 Principal Diagnosis Adenocarcinoma of Cecum Discharge Exam Constitutional WD/WN, vitals as above no acute distress Eyes PERRL, conjunctivae normal, anicteric sclerae Neck trachea midline, no thyromegaly Respiratory normal respiratory effort; no cough Auscultation: + crackles (right basilar crackles) Cardiovascular Rate/Rhythm: regular rhythm Heart Sounds: normal S1 and normal S2; no murmur Vessels: + JVD Extremities: + edema Gastrointestinal (Abdomen) Inspection/Auscultation: normal bowel sounds Percussion/Palpation: no hepatosplenomegaly Musculoskeletal no cyanosis or clubbing, extremities motor strength 5/5 Psychiatric Orientation: alert and oriented x 3 Lymphatic no cervical or axillary lymphadenopathy Discharge Data Allergies Allergy/AdvReac Type Severity Reaction Status Date / Time amoxicillin Allergy Mild RASH Verified 02/02/19 12:53 gluten Allergy Mild celiac's Verified 02/02/19 12:53 disease wheat Allergy Mild celiac's Verified 02/02/19 12:53 disease Consultations 02/02/19 13:17 ED Decision to Admit Stat 02/02/19 15:34 Consult Gastroenterology Routine Consult Nephrology Routine 02/04/19 11:40 Consult General Surgery Routine 02/06/19 15:18 Consult Oncology Routine Procedures Performed Operation Date: 02/04/19 16:30 Actual Procedures p EGD Biopsy Cytology(Left) - Toby Finley Case, DO s Colonoscopy Biopsy Cytology(Left) - Toby Finley Case, DO Operation Date: 02/05/19 12:00 Actual Procedures p Laparoscopic Extended Right Hemicolectomy(Right) - Matthew Ríos, Ordered Studies 02/02/19 11:53 CT abd pelvis IV con only Stat 02/04/19 11:10 CT abd pelvis oral and IV con Stat CT chest w con Stat 02/12/19 10:40 CT abd pelvis IV con only Urgent 03/04 CXR 02/13 KUB 02/13 CXR Hospital Course (1) Abdominal pain: * Patient with long standing history of fatigue, anemia. Had received 2 units PRBC prior to trip to [place] in January. Had previously had issues with anemia but since going gluten free in Mar 2017, but not until recently had she started with worsening fatgiue/anemia requiring blood transfusions in addition to IV Iron. Previous colonoscopy Apr [address] Becker without evidence of malignancy. * Patient presented with GI bleed, requiring additional 2 units on 02/03 during this admission for a hemoglobin down to 7. * EGD/Colonoscopy on 02/[address] 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 Per oncology, this is likely an acquired issue, but further testing will be done. * Patient underwent right hemicolectomy with Dr. Ríos on 02/05, with drain removed on 02/11 per surgical team. * Oncology consulted during admission, with final decisions on chemo to be determined at follow up visit with Dr. Rowell on 02/19/19 -- nodes without evidence of metastasis. * Patient is to continue to receive IV iron and Dr. King will set up with Dr. Rowell. * Course prolonged due to increased right sided abdominal pain with radiation to her back after drain pulled. Lipase, LFTs within normal limits. Repeat CT Abd/pelvis with possible low grade SBO vs ileus, but KUB following morning without evidence of obstruction. Patient given stool softeners and had two BMs prior to discharge. Patient also with + fluid balance d/t IVF (although not all output recorded) and lower extremity edema worsened by low albumin after surgery. Patient given lasix 20mg for the next five days in addition to potassium. Should have repeat labs in next week at the discretion of PCP. * Patient 91% on room air prior to discharge. Able to ambulate halls without drop in O2 sats. * Patient high risk for pulmonary complications secondary to abdominal pain with deep breathing and additional fluid. WBC were elevated, likley stress but urine with e.coli (likely contaminated, but patient given IV abx and discahrged on keflex for total 5 day course) * Abdominal pain improved on day of discharge with lidocaine patch and gabapentin overnight. Would continue heat/lidocaine patches with pain medications for pain as outpatient, with instructions to use only when needed. (2) Adenocarcinoma of colon: * As above (3) GI bleed: * As above. Stable prior to discharge at 8.9/28.5. * Patient to continue IV iron as outpatient -- will be coordinated by Dr. King with heme/onc * Continued home pantoprazole 40mg BID (4) Celiac disease: * Indiscretions occasionally, but overall very compliant with non-gluten diet. (5) Moses's thyroiditis: * TSH on 02/02 was 0.7. Continued home synthroid. (6) Iron deficiency: * As above -- had previously received IV Iron transfusions and PRBCs in the past several months * Continue outpatient infusions as above (7) Anxiety: * As above -- panic attack x 2 this year * Recently, mother figure critically ill in ICU dying of pancreatic CA. Given x1 dose of ativan with much relief on 02/11 * Patient may benefit from low dose SSRI/SNRI/buspar in the future if symptoms persist. Given vistaril prn. (8) DVT prophylaxis: * Lovenox while inpatient (9) UTI (urinary tract infection): * 2nd to e.coli * received IV antibiotic therapy then transitioned to short course of keflex at discharge (10) Acute blood loss anemia: * received 2 units of PRBCs early in stay for such * blood loss anemia was 2nd to GI bleeding from colon cancer * lowest hemoglobin level 7 * discharge hemoglobin level was 8.9 (11) Volume overload: * had clinical evidence of such prior to discharge * weight was at least 10 pounds higher than baseline * hypoalbuminemia likely contributed to such (was 1.6-1.9 prior to discharge) * will take lasix 20mg daily for 5 days to promote diuresis post-discharge Total Time Total Time Spent Total Time Spent (In Minutes): 45 Discharge Plan Discharge Items Patient Disposition: Home - Self-Care Reason For Visit: ANEMIA Discharge Diagnosis: cecal mass Goals: You have been hospitalized for an urgent problem which required surgery. During your stay at [facility], we have made an effort to correct the problem that brought you to the hospital while keeping you as comfortable as possible. Surgery and medications were used to bring your condition under control and your discharge instructions will include directions for any medications you should take after leaving the hospital. Please make sure to follow the advice of your surgeon regarding follow up with the surgeon and with your primary care provider. Activity: Per Instructions section Lifting: No more than 10 pounds Bathing Comment: may shower. no soaking in tubs Exercise/Sports: Wait until after follow-up appointment Driving/Machine Use: do not resume driving while taking narcotics for pain Non-emergency contact: Primary Care Provider Call non-emergency contact if: you have any medication questions, your symptoms worsen, your pain is not controlled, your pain is worsening, your pain is unusual for you, your pain is concerning for you, you have a fever, your temperature is above 101.5, your wound has increased redness, your wound has increased drainage and your wound pain has increased Follow-up/Referrals: Yasir King MD [Primary Care Provider] - (Please, call Dr. King's office on the day you are discharged from the hospital. He said they will be sure to add you to the schedule shawna. The office phone number is [phone].) Matthew Ríos DO [Surgeon] - 02/18/19 10:20 am (Please, follow up at [facility] with Dr. Ríos on MondayFebruary 18 at 10:20 am. *The office is located at [address] in [place]. If you need to change this appointment, call the office at [phone].) Jayant Rowell [Physician] - 02/19/19 11:10 am (Please, follow up with Dr. Rowell on MondayFebruary 19 at 11:10 am. *The office is located in the rear of this hospital. You will park behind the hospital in [address] and enter via [facility]. If you need to change this appointment, call the office at [phone].) Diet: Low Fiber Addtl Attending Provider Instructions: You have been given a prescription for pain medications by general surgery. Please only take as needed as this increases constipation. Please keep in mind that your pain medication has tylenol (acetaminophen) in them. In every tablet there is 325mg. So, if you take two tablets, you will be taking in 650mg. It is recommended that you not exceed 3,000mg in a 24 hour period of time. You may use a heating pad and over the counter salonpass patches to the affected area as well to help with musculoskeletal pain. To help with constipation, it is recommended that you continue to ambulate and utilize a low fiber diet for the next several days. You should also continue to use your incentive spirometer and continue to take deep breaths as instructed to prevent pulmonary complications. You have been provided a prescription for keflex (cephalexin) to treat possible urinary tract infection. Please take as prescribed and complete full course. You will have additional 2 days worth of treatment to complete the course, as you have received daptomycin while hospitalized. You have been given a prescription for lasix (fursemide) 20mg tablets for the next five days. During that time you should also take 20 MEQ KCl potassium tablets. Those have also been sent to your pharmacy. You have also been given a prescription for hydroxyzine to be used as needed for anxiety/insomnia. You may want to discuss a low dose anti-depressant or anxiolytic (anti-anxiety) medication with your primary care provider at follow up. Please follow up as scheduled with general surgery (Dr. Ríos) on February 18 as scheduled. Please also follow up with Dr. King on that day as well. You have been scheduled to see Dr. Rowell on February 19. At that time, future chemo will be discussed as well as pathology results. Please report to the emergency room if your develop worsening abdominal pain, shortness of breath, fever, or for any other symptoms that are concerning for you. Pending Studies at Discharge: No Stand-Alone Forms: [facility] PATHEOS, Opioid Pain Management Medications and DC Order Prescriptions: New hydrocodone-acetaminophen [Sultana] 5-325 mg tablet 1 - 2 tab PO Q4H PRN (Reason: pain, initial therapy, max 8 tabs daily) Qty: 18 RF: 0 hydroxyzine HCl 25 mg Tablet 25 mg PO Q8H PRN (Reason: anxiety/insomnia) Qty: 14 RF: 0 lidocaine 5 % Adhesive Patch,Medicated 3 patch transdermal QAM Qty: 1 RF: 0 furosemide [Lasix] 20 mg tablet 20 mg PO DAILY Qty: 5 RF: 0 potassium chloride 20 mEq tablet extended release 20 meq PO DAILY Qty: 5 RF: 0 Continued cyanocobalamin (vitamin B-12) 500 mcg tablet 500 mcg PO QAM RF: 0 aspirin [Adult Low Dose Aspirin] 81 mg tablet,delayed release (DR/EC) 81 mg PO QAM RF: 0 ferrous sulfate 325 mg (65 mg iron) tablet 325 mg PO BID RF: 0 ascorbic acid (vitamin C) 500 mg capsule 500 mg PO QAM RF: 0 docusate sodium [Colace] 100 mg Capsule 100 mg PO BID RF: 0 pantoprazole 40 mg Tablet,Delayed Release (Dr/Ec) 40 mg PO BID RF: 0 levothyroxine 88 mcg tablet 88 mcg PO QAM RF: 0 Discontinued acetaminophen [Tylenol Extra Strength] 500 mg Tablet 500 - 1,000 mg PO Q6H PRN (Reason: Pain) RF: 0 Discharge Orders: Discharge Order (Routine); Ordered 02/15/19 Ordered By: Nova Santiago/Other Patient Handouts: Surgery Prevent DVT After, Diet Gluten Free Celiac Admission Data Admit Date/Time: 02/02/19 13:45 Attending Provider: Yasir Cohen Admit Provider: Thanh Umana Primary Care Provider: Yasir King Other Providers: Thanh Umana ; Toby Becker ; Matthew Ríos ; Jayant Rowell ; Yasir King ; [facility] Other Interventions: Discharge Summary Assessment (RN) Last Done: 02/15/19 13:55 DC Date/Time DO NOT enter until pt leaves facility: 02/15/19 15:14 Supervising Physician Co-Signing Physician Notes Attending Attestation - Pt seen/examined, chart reviewed in detail, discharge care plan d/w KASSANDRA Arnold. I agree w/ the hope components of her discharge documentation. 58yo female w/ history of Iron Deficiency requiring IV iron infusions as well as celiac disease who presented with worsening weakness/fatigue for 1 month. Presenting hemoglobin was 8.3 and promptly dropped to 7 within a few hours. Stool was heme+ in the ER. GI was consulted and ultimately a colonoscopy revealed a cecal mass. Patho showed adenocarcinoma. Gen surg was consulted who performed right-sided hemicolectomy for adenocarcinoma of the colon. She had a very slow post-op recovery characterized by mod-severe pain, possible UTI, acute blood loss anemia, GI intolerance. Due to her abdominal pain a repeat CT of the abd/pelvis was performed later in her stay to ensure no abscess, free air, anastomic issues, etc. CT abd/pelvis showed a mild low-grade ileus vs pSBO. The ileus was expected in light of the type of surgery she had and NOT felt to represent a complication. She required a downgrade in diet for only 24 hours and was able to advance the diet shortly after. Prior to d/c she was passing plenty of stool and flatus. exam - gen - looks much better than prior exam, awake, alert, oriented x 3 mouth - MMM heart - RRR; mild JVD present lungs - bibasilar rales abd - mildly distended, BS+, no tenderness in the RUQ and RLQ today skin - abd wall incisions clean ext - 2+ b/l edema She will complete a brief course of keflex for e.coli UTI. For edema/fluid weight gain - lasix 20mg daily x 5 days (with K supplementation). Yasir Cohen MD
[2019-02-14] MEDS ORDERED: KETOROLAC 30 MG/ML VIAL IV PRN (15:10)
--- NOTE | 2019-02-14 15:14 | Hospitalist Progress Note ---
Date of Service February 14, 2019 Assessment & Plan (1) Abdominal pain: * Patient with long standing history of fatigue, anemia. Had received 2 units PRBC prior to trip to [place] in January. Had previously had issues with anemia but since going gluten free in Mar 2017, but not until recently had she started with worsening fatgiue/anemia requiring blood transfusions in addition to IV Iron. Previous colonoscopy Apr [address] Becker without evidence of malignancy. * POD #9 s/p lab RIGHT hemicolectomy with Dr. Ríos (02/05) -- drain removed 02/11 per surgical team * Low grade fever of 100.7 on 02/10. Patient has remained afebrile since that time. * Upon re-evaluation yesterday evening after being notified of extreme worsening of abdominal pain, 12/20, patient sent for CT abd/pelvis with evidence of ileus vs low grade SBO. Diet was backed down to clear liquid. KUB in AM without evidence of obstruction.. Diet advanced. * Patient with pain between shoulder blades and tachycardia after going for walk last evening --> CXR, EKG performed --> CXR revealed probable atelectasis, EKG without obvious abnormality * WBC trending down --> 11.1k today - likely secondary from some atelectasis as well as general stress on body --> patient having difficult time taking deep breaths. Repeat discussion regarding incentive spirometer and need for compliance and deep breathing to prevent atelectasis and complications. Also stressed importance of ambulation. * Lipase wnl, lfts with elevation of alk phos * UA -- + nitrite, leuk esterase, 4+ bacteria -- although possibly contamination -- given dapto initially in case of hospital acquired infection -- cx with e.coli --> transition to keflex, treat for total of 5 days * Re-evaluation by attending with possible MSK/neuropathic pain -- will trial gabapentin, toradol, lidocaine patch. Valium x 1 --> ? pinched nerve, d iaphragmatic issue, muscle spasm * Also, will attempt Senna again since patient with small BM last night --> possible constipation causing increased pain? (2) Adenocarcinoma of colon: * As above * Patient presented with GI bleed, requiring additional 2 units on 02/03 during this admission for a hemoglobin down to 7. * EGD/Colonoscopy on 02/[address] 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 Per oncology, this is likely an acquired issue, but further testing will be done. * Oncology consulted -- Final decisions on chemo to be determined at follow up visit with Dr. Rowell on 02/19/19 -- nodes without evidence of metastasis. Will continue IV iron infusions as outpatient (3) GI bleed: * As above * H/h low, but stable -- 7.9/25.0, although patient had been receiving IVF - possible slightly dilutional * Continue home pantoprazole 40mg BID * Will repeat CBC in AM (4) Celiac disease: * Has some indiscretions occasionally, but overall very compliant with non-gluten diet. (5) Moses's thyroiditis: * TSH on 02/02 was 0.7 * Continue Synthroid 88 mcg (6) Iron deficiency: * As above -- had previously received IV Iron transfusions and PRBCs in the past several months * Continue outpatient infusions as above (7) Anxiety: * As above -- panic attack x 2 this year * Recently, mother figure critically ill in ICU dying of pancreatic CA. Given x1 dose of ativan with much relief on 02/11 * Will continue to monitor-- patient may benefit from low dose SSRI/SNRI/buspar in the future if symptoms persist * Will order vistaril 25mg prn as needed for now * ??Need for psych consult (8) DVT prophylaxis: * Lovenox Dispo: discharge prolonged due to uncontrolled pain this afternoon -- hopeful discharge in AM Subjective Patient evaluated this morning. She states that her pain has been tolerable over night but does still state it wraps around her back on the right side. She tolerated dinner and breakfast without much difficulty. States she did have small formed stool last evening. In the afternoon, re-evaluated and patient states her pain is no longer controlled. She has not been up out of bed in the past four hours. She states she feels tired. at bedside states that she was able to do three laps in the halls this morning without much difficulty. He also states that he believes the patient's anxiety is increased regarding the illnesses of close friends/family due to the fact that when it was brought up earlier she became tearful very quickly, but patient quickly responded "it's not that, I turned to the right and that's what was painful" and then did appear to be very quiet and not want to talk about it much. She also states that she had frustrations with her pain medications, as she had forgotten that she had to ask for them, as they are prn. Explained that we don't want the pain to become too much, but we also want to avoid constipation if possible. Discussed possibility of MSK origin and that there was discussion with general surgery team and we will treat with gabapentin and possibly try a dose of valium to see if that improves her pain. Encouraged to continue use of incentive spirometry as patient had not used in the past several hours per her 's account. Review of Systems Constitutional: no fever and no chills Ear, Nose, Mouth, Throat: no sore throat and no dysphagia Respiratory: no cough and no dyspnea Cardiovascular: + edema; no chest pain and no palpitations Gastrointestinal: + abdominal pain; no nausea and no vomiting Genitourinary: no dysuria "strong urine" Musculoskeletal: + back pain (right lower back) Psychiatric: no depression and no anxiety Physical Exam Constitutional: WD/WN, vitals as above no acute distress Eyes: PERRL, conjunctivae normal, anicteric sclerae Neck: trachea midline, no thyromegaly Respiratory: no respiratory distress, no labored breathing and no cough Auscultation: + crackles (right basilar crackles); no rhonchi Cardiovascular: Rate/Rhythm: regular rhythm Heart Sounds: normal S1 and normal S2; no murmur Gastrointestinal (Abdomen): Inspection/Auscultation: + abdomen distended (mild) and normal bowel sounds Percussion/Palpation: + abdomen tender (RLQ primarily, although diffusely tender); no guarding, abdomen not rigid and no hepatosplenomegaly Musculoskeletal: no cyanosis or clubbing, extremities motor strength 5/5 Neurologic: PERRL, EOMI, accommodation nl, no face palsy, no dysarthria Psychiatric: Orientation: alert and oriented x 3 Affect: + anxious affect Results & Data Vital Signs (Past 12 Hours) Vital Signs Temp Pulse Resp BP Pulse Ox 02/14/19 07:07 36.6 C 74 16 129/70 96 PG Care Time/CCT Total # of Minutes Spent Total Time Spent with Patient: Total time spent is greater than 50% in coordination of care (as documented) at patient's floor/unit and/or counseling patient: Prolonged Care Time Prolonged Care Time: Yes Total Prolonged Care Time: 100 Total time spent at patient bedside, answering questions/concerns, reviewing labs/imaging, coordinating with nephrology as well as general surgery. Multiple trips to bedside throughout the day. (1) GI bleed GI bleed type/associated pathology: unspecified gastrointestinal hemorrhage type Qualified Code(s): K92.2 - Gastrointestinal hemorrhage, unspecified
--- NOTE | 2019-02-14 15:27 | Surgery Progress Note ---
Date of Service February 14, 2019 Assessment & Plan (1) Adenocarcinoma of colon: at this point I think she is doing essentially as expected. ok for d/c from my standpoint. instructions given. f/u in 1 week. Subjective feeling better today. still tired. yann diet. no n/v. Physical Exam Physical Exam: abd: soft. expected tenderness. wounds look good. Results & Data Vital Signs (Past 12 Hours) Vital Signs Temp Pulse Resp BP Pulse Ox 02/14/19 15:14 36.9 C 77 16 148/72 H 91 02/14/19 07:07 36.6 C 74 16 129/70 96 PG Care Time/CCT Total # of Minutes Spent Total Time Spent with Patient: Total time spent is greater than 50% in coordination of care (as documented) at patient's floor/unit and/or counseling patient:
[2019-02-14] MEDS: LIDOCAINE 5% 1 PATCH TD SCH (17:01)
[2019-02-14] MEDS: GABAPENTIN 100 MG CAP PO SCH (20:26)
[2019-02-14] MEDS: ERTAPENEM SODIUM 1,000 MG in SODIUM CHLORIDE 0.9% 50 ML IV SCH (20:26)
[2019-02-14] MEDS ORDERED: diazePAM 2 MG TABLET PO SCH (21:30)
[2019-02-14] MEDS: diazePAM 2 MG TABLET PO ONE ×2 (21:36→21:37)
[2019-02-15] MEDS: D5W AND 1/2NSS 1,000 ML IV SCH (02:31)
[2019-02-15] MEDS: HYDROCODONE/ACETAMOPHEN 5/325MG TAB PO PRN ×3 (03:44→13:26)
[2019-02-15] MEDS: LEVOTHYROXINE SODIUM 88 MCG TABLET PO SCH (06:15)
--- NOTE | 2019-02-15 07:41 | Surgery Progress Note ---
Date of Service February 15, 2019 Assessment & Plan (1) Adenocarcinoma of colon: doing well from my standpoint ok for d/c instructions given Subjective pt seen. feeling the best she has this AM since surgery. slept well. +bm last night Physical Exam Physical Exam: alert. nad abd: soft. incsions look great. no drainage or redness Results & Data Vital Signs (Past 12 Hours) Vital Signs Temp Pulse Resp BP Pulse Ox 02/14/19 23:59 36.6 C 71 16 139/76 93 PG Care Time/CCT Total # of Minutes Spent Total Time Spent with Patient: Total time spent is greater than 50% in coordination of care (as documented) at patient's floor/unit and/or counseling patient:
[2019-02-15] MEDS: LIDOCAINE 5% 1 PATCH TD SCH (07:52)
[2019-02-15] MEDS: ENOXAPARIN INJ 40 MG/0.4 ML SYR SQ SCH (07:53)
[2019-02-15] MEDS: GABAPENTIN 100 MG CAP PO SCH ×2 (07:53→13:26)
[2019-02-15] MEDS: PANTOprazole 40 MG TAB PO SCH (07:53)
[2019-02-15] MEDS: CYANOCOBALAMIN 500 MCG TABLET (VITAMIN B-12) PO SCH (07:54)
[2019-02-15 08:40] LABS: Basophils # (auto) 0.03 K/uL (0-0.2); Basophils % (auto) 0.4 %; Eosinophils # (auto) 0.19 K/uL (0-0.5); Eosinophils % (auto) 2.7 %; Hematocrit (blood only) 28.5 % (37-47); Hemoglobin 8.9 g/dL (12.0-16.0); Immature Granulocytes # (auto) 0.06 K/uL (0.00-0.02); Immature Granulocytes % (auto) 0.9 %; Lymphocytes # (auto) 1.13 K/uL (1.2-3.4); Lymphocytes % (auto) 16.2 %; Mean Corpuscular Hemoglobin 28.9 pg (25-34); Mean Corpuscular Hgb Conc 31.2 g/dL (32-36); Mean Corpuscular Volume 92.5 fL (80-100); Mean Platelet Volume 9.1 fL (7.4-10.4); Monocytes # (auto) 0.46 K/uL (0.11-0.59); Monocytes % (auto) 6.6 %; Neutrophils # (auto) 5.09 K/uL (1.4-6.5); Neutrophils % (auto) 73.2 %; Platelet Count 420 K/uL (130-400); RDW Coefficient of Variation 15.2 % (11.5-14.5); RDW Standard Deviation 51.5 fL (36.4-46.3); Red Blood Count 3.08 M/uL (4.2-5.4); White Blood Count 6.96 K/uL (4.8-10.8)
[2019-02-15 09:12] LABS: Albumin Level 1.9 gm/dl (3.4-5.0); BUN Creatinine Ratio 14.2 (10-20); Calcium 8.8 mg/dl (8.5-10.1); Creatinine Clr Calc Pharmacy 83.2 ml/min; Est GFR (African American) 112.1; Est GFR (Non-African American) 96.7; Potassium 3.7 mmol/L (3.5-5.1)
[2019-02-15 09:14] LABS: Albumin Globulin Ratio 0.5 (0.9-2); Bilirubin,Total 0.2 mg/dl (0.2-1); Globulin 3.8 gm/dl (2.5-4.0); Total Protein 5.7 gm/dl (6.4-8.2)
--- NOTE | 2019-02-15 10:35 | Progress Note ---
DATE: 02/15/2019 SUBJECTIVE: Mrs. Sorenson had been doing quite well. However, yesterday after taking a walk, she developed pain between her shoulder blades associated with a tachycardia. A chest x-ray was done showing evidence of atelectasis on the right side which had been a chronic issue. An EKG showed no obvious abnormalities. She has felt well since that time. Retrospectively, she said that most of the pain was on the right side of her back above the diaphragm. She has no nausea or vomiting. She had no associated diaphoresis. She has had no chills and she has had no fever. This morning, she says that she feels better than she has for sometime. Her abdominal discomfort is significantly improved, although still there to some extent. Her appetite is good. She had a bowel movement this morning. She is quite anxious to go home. OBJECTIVE: GENERAL: On exam, she appears pale, but well. VITAL SIGNS: Her blood pressure 132/76, her pulse 68 and regular, respiratory rate 16, her pulse ox 91% on room air. She is afebrile (36.6. Her maximum temperature in the past 24 hours was 36.9). SKIN: Shows normal skin turgor. Her incisions are healing nicely. She has no rash or infiltrative skin disease. LYMPHATICS: Show no palpable lymphadenopathy. HEAD: Normal. EYES: Grossly normal. She has no conjunctival icterus. EARS, NOSE, MOUTH AND THROAT: Unremarkable. Her oral mucous membranes are moist. NECK: Supple. She has no jugular venous distention, carotid bruit or thyromegaly. CHEST: Continues to show atelectatic rales at the right base extending up one-third to one-half of the way up her chest. CARDIAC: Shows a regular rhythm. S1 and S2 are normal. She has no murmur or gallop. ABDOMEN: Continues to shows some voluntary guarding on the right side. Bowel sounds are normal. She has no obvious organomegaly or mass, but the exam is a bit limited by her guarding. BACK: Shows no CVA tenderness or tenderness over the dorsal spine. EXTREMITIES: Show no cyanosis, clubbing or peripheral edema. There is no calf tenderness or cord. Peripheral pulses are intact. NEUROLOGIC: Unremarkable. LABORATORY WORK: From this morning shows a white count of 6960. Her hemoglobin is 8.9, her hematocrit 28.5, platelet count 420,000. Clinical chemistries show a sodium of 138 mmol/L, potassium 3.7 mmol/L, chloride 107 mmol/L, and CO2 content 27 mmol/L. Her BUN is 9, creatinine 0.66. Her serum calcium is 8.8. A random blood sugar was 96. ASSESSMENT: Seems quite clinically stable. PLAN: Recommend discharge today. Outpatient followup plans have already been made and I will plan to see her on a 02/19/2019.
[2019-02-15] MEDS: DOCUSATE SODIUM/SENNA 50/8.6MG TAB PO SCH (11:51)
== END 2019-02-15 15:14 | disposition home or self-care (01) | DRG 330 ==
LOC: ED 11:28 → SUATTDRO 13:17 → 2S 13:17 → SUATTDRO 13:45 → 2S 15:14 → 3W 02-07 18:22

== ENCOUNTER 2021-03-21 18:04 | Inpatient (IN) ==
[2021-03-21] MEDS ORDERED: SODIUM CHLORIDE 0.65% NA SOLN 45 ML (OCEAN) ONE (18:15)
[2021-03-21] MEDS ORDERED: guaiFENesin 600 MG TABCR PO STA (18:15)
[2021-03-21] MEDS ORDERED: ALBUTEROL HFA 8 GM INHALER INH ONE (18:15)
[2021-03-21] MEDS ORDERED: SODIUM CHLORIDE 0.9% 1000ML 1,000 ML IV STA (18:23)
[2021-03-21] MEDS ORDERED: KETOROLAC TROMETHAMINE 15 MG/ML VIAL IV STA (18:24)
[2021-03-21] MEDS ORDERED: ACETAMINOPHEN 1,000 MG/100 ML VIAL IV STA (18:24)
[2021-03-21] MEDS ORDERED: dexAMETHasone**PF** 10 MG/ML VIAL IV ONE (18:25)
[2021-03-21] MEDS ORDERED: ONDANSETRON INJ 2 MG/ML 2 ML VIAL IV STA (18:25)
--- NOTE | 2021-03-21 18:43 | Emergency Department Note ---
Impression & Plan Community acquired pneumonia, Lab test negative for COVID-19 virus, Hypoxia ED Provider Note NAME: TAMANNA VÁZQUEZ AGE: 60 SEX: F ARRIVES VIA: Walk-In INFORMANT: Patient ED PROVIDER(S): aRnjith Thompson MD CHIEF COMPLAINT: Fever, body aches, cough, sob. PLAN: Disposition: Admit MEDICAL DECISION MAKING: The patient is a pleasant 60-year-old woman with a past medical history of hyperlipidemia, celiac disease who presents to the emergency department for evaluation of cough, congestion, feverishness, body aches, shortness of breath, nausea and decreased appetite and oral intake over the past 4 days. She reports her mother was sick with flulike symptoms but had a COVID-19 test performed to her doctor last week that was negative. The patient is not vaccinated for COVID- 19. She did have COVID-19 in the spring 2020. On arrival the patient is uncomfortable but no acute distress, febrile to 38.3 with heart rate in the 90s and O2 saturation ranging from 90-94% on room air at rest. She appears clinically dry. Lungs with an intermittent wheeze and otherwise clear. EKG without overt acute ischemia. CXR with increased interstitial thickening, which per my review appears asymmetric and most prominent in the right middle/ree-hilar region. WBC, H/H, platelets wnl. Chemistry without acidosis. Lactate wnl. Electrolytes unremarkable. LFTs without significant abnormality. Troponin negative/undetectable. BNP wnl. Procalcitonin is not elevated. Lipase wnl. UA without convincing evidence of infection. Covid-19 RNA, NAAT negative. Cephiad quad also performed and Covid-19 PCR negative. Influenza and RSV PCR also negative. Upon re-evaluation the patient did feel somewhat improved following initial treatment with IVF hydration, albuterol MDI, dexamethasone, guaifenesin. However, she did developed O2 required after O2 went as low as 88% on RA. Blood Cx were drawn and patient was treated for CAP with CTX and Azithromycin. Patient agrees with plan for admission. Case was discussed with Dr. Zuluaga, [facility] hospitalist, who will evaluate the patient for admission. Triage Nursing notes reviewed and agree them. Prior medical records reviewed Vital Signs: reviewed and remarkable for fever, hypoxia. Differential diagnosis: Viral syndrome, otitis, pharyngitis, pneumonia, influenza, meningitis, urinary tract infection, sepsis, bacteremia, as well as other pathologies. ER treatment provided: See below. Diagnostics interpreted by me: ECG: NSR, 84 bpm, no ectopy, no overt ST elevation or depression. Cardiac Monitoring: An order for continuous cardiac monitoring was placed and demonstrated NSR, 84 bpm, no ectopy. Laboratory studies: See below Imaging studies: See below Consultation(s): Case was discussed with Dr. Zuluaga, [facility] hospitalist, who will evaluate the patient for admission. HPI: The patient is a pleasant 60-year-old woman with a past medical history of hyperlipidemia, celiac disease who presents to the emergency department for eval uation of cough, congestion, feverishness, body aches, shortness of breath, nausea and decreased appetite and oral intake over the past 4 days. She reports her mother was sick with flulike symptoms but had a COVID-19 test performed to her doctor last week that was negative. The patient is not vaccinated for COVID- 19. She did have COVID-19 in the spring 2020. ROS: See above HPI for pertinent positives & negatives. A total of 10 systems reviewed and were otherwise negative. PAST MEDICAL HISTORY:See Below PAST SURGICAL HISTORY:See Below FAMILY HISTORY:See Below SOCIAL HISTORY:See Below HOME MEDICATIONS:See Below ALLERGIES:See Below VITALS:See Below PHYSICAL EXAMINATION: GENERAL: Awake, alert, uncomfortable-appearing, in no distress HENT: Normocephalic, atraumatic. Oropharynx with dry mucous membranes and otherwise unremarkable. EYES: Normal conjunctiva. Sclera non-icteric. NECK: Supple. No nuchal rigidity. FROM. No JVD. RESPIRATORY: Scant intermittent wheeze, otherwise, clear to auscultation. CARDIAC: Regular rate, normal rhythm. Extremities warm and well perfused. Pulses equal. ABDOMEN: Soft, non-distended. No tenderness to palpation. No rebound or guarding. No masses. RECTAL: Deferred. MUSCULOSKELETAL: Chest examination reveals no tenderness. The back is symmetrical on inspection without obvious abnormality. There is no CVA tenderness to palpation. No joint edema. LOWER EXTREMITIES: Calves are equal size bilaterally and non-tender. No edema. No discoloration. NEURO: Normal sensorium. No sensory or motor deficits noted. SKIN: No rash or jaundice noted. Ranjith Thompson MD Past Med/Surg History Medical History Adenocarcinoma of colon HX OF>Right jose-colectomy 01/2019 > no hx chemo Adult celiac disease confirmed via blood test only Constipation History of blood transfusion R/T ANEMIA 2019 History of COVID-29 May 2020>FATIGUE (ALL RESOLVED) Hypercholesterolemia Per records *PT UNAWARE Hypothyroidism Osteoarthritis Prediabetes Solitary thyroid nodule just monitoring SVT (supraventricular tachycardia) dx early 2020> metoprolol for this > no issues since > follows with Dr. Nina Surgical History H/O breast surgery puncture aspiration of cyst H/O hernia repair abdominal hernia x 2 History of colonoscopy History of esophagogastroduodenoscopy (EGD) MAC History of esophagogastroduodenoscopy (EGD) History of tooth extraction History of total left hip replacement Hx of biopsy biopsy thyroid using percutaneous core needle S/P endometrial ablation S/P right hemicolectomy February 05, 2019 laparoscopic extended right hemicolectomy-Dr. Ríos Family History Mother Diabetes Family history of diabetes mellitus Coronary heart disease S/P triple vessel bypass Sister Family history of diabetes mellitus Diabetes Other No family history of adverse response to anesthesia Denies family history of Ovarian cancer Breast cancer Colorectal cancer Uterine cancer Social History Smoking Status: Never smoker Second Hand Exposure: No; Hx Alcohol Use: No Hx Substance Use: No Preferred Language: Turkish Communication Ability: Effective Visual Impairment: No Limitations Hearing Ability: Normal Professor Of Communication And Writing Required: No Beliefs That Will Affect Care: None marital status: Current Living Situation: Spouse current occupational status: employed Feels Safe at Home: Yes Childhood Exposure to Second-Hand Smoke: No Dental Care, Regularly: Yes Physical Activity Frequency: Does not Exercise Seatbelt Use: always Sunscreen Use: Yes Assistive Devices: Glasses Allergies Allergies Allergy/AdvReac Type Severity Reaction Status Date / Time amoxicillin Allergy Mild RASH Verified 03/21/21 18:44 gluten Allergy Mild celiac's Verified 03/21/21 18:44 disease wheat Allergy Mild celiac's Verified 03/21/21 18:44 disease Home Meds Home Medications Medication Instructions Recorded Confirmed cholecalciferol (vitamin D3) 25 1,000 mcg PO QAM 04/10/20 03/21/21 mcg (1,000 unit) capsule (Vitamin D3) multivitamin 1 tab PO PM 04/10/20 03/21/21 cyanocobalamin (vitamin B-12) 500 500 mcg PO QAM 09/02/20 03/21/21 mcg tablet clindamycin HCl 150 mg capsule 150 mg PO DIRECTED 02/09/21 03/21/21 docusate sodium 100 mg capsule 100 mg PO BID 03/21/21 03/21/21 Previous Rx's Medication Instructions Recorded metoprolol succinate 25 mg 25 mg PO PM #90 tab 02/03/21 tablet,extended release 24 hr levothyroxine 75 mcg capsule 75 mcg PO QAM #90 cap 03/04/21 Results & Data (ED) Vital Signs Vital Signs - 24 hr 03/21/21 18:08 03/21/21 18:23 03/21/21 18:54 Temperature 38.3 C H Temperature Source Temporal Artery Scan Pulse Rate 93 H 87 Pulse Rate from SpO2 Sensor 87 Pulse Rhythm Regular Pulse Strength Normal Respiratory Rate 20 21 Respiratory Effort / Characteristics Non-Labored Spontaneous Respiratory Depth Normal Respiratory Pattern Regular Blood Pressure 113/70 Blood Pressure Mean 84 Blood Pressure Position Sitting Pulse Oximetry 94 94 96 Oxygen Delivery Method Room Air Room Air Oxygen Flow Rate Sepsis Recent Fever Within 48 Hours No Sepsis New/Unexplained Change in Mental Status N/A Sepsis Action Taken by Nursing No Action Required Pulse Oximetry Post Tiitration 03/21/21 19:00 03/21/21 19:30 03/21/21 19:45 Temperature Temperature Source Pulse Rate 83 87 82 Pulse Rate from SpO2 Sensor 83 86 81 Pulse Rhythm Pulse Strength Respiratory Rate 24 21 25 H Respiratory Effort / Characteristics Respiratory Depth Respiratory Pattern Blood Pressure 121/67 117/69 Blood Pressure Mean 85 85 Blood Pressure Position Pulse Oximetry 94 92 87 L Oxygen Delivery Method Oxygen Flow Rate Sepsis Recent Fever Within 48 Hours Sepsis New/Unexplained Change in Mental Status Sepsis Action Taken by Nursing Pulse Oximetry Post Tiitration 03/21/21 19:57 03/21/21 20:00 03/21/21 20:15 Temperature Temperature Source Pulse Rate 78 79 Pulse Rate from SpO2 Sensor 78 79 Pulse Rhythm Pulse Strength Respiratory Rate 25 H 25 H Respiratory Effort / Characteristics Short of Breath Respiratory Depth Normal Respiratory Pattern Regular Blood Pressure 130/67 Blood Pressure Mean 88 Blood Pressure Position Pulse Oximetry 86 L 86 L Oxygen Delivery Method Room Air Room Air Oxygen Flow Rate Sepsis Recent Fever Within 48 Hours Sepsis New/Unexplained Change in Mental Status Sepsis Action Taken by Nursing Pulse Oximetry Post Tiitration 94 03/21/21 20:30 03/21/21 20:45 03/21/21 21:00 Temperature Temperature Source Pulse Rate 75 74 69 Pulse Rate from SpO2 Sensor 75 74 69 Pulse Rhythm Pulse Strength Respiratory Rate 22 21 21 Respiratory Effort / Characteristics Respiratory Depth Respiratory Pattern Blood Pressure 113/65 118/70 Blood Pressure Mean 81 86 Blood Pressure Position Pulse Oximetry 87 L 94 92 Oxygen Delivery Method Nasal Cannula Oxygen Flow Rate 2 Sepsis Recent Fever Within 48 Hours Sepsis New/Unexplained Change in Mental Status Sepsis Action Taken by Nursing Pulse Oximetry Post Tiitration 03/21/21 21:15 03/21/21 21:30 03/21/21 21:45 Temperature Temperature Source Pulse Rate 70 69 68 Pulse Rate from SpO2 Sensor 70 68 68 Pulse Rhythm Pulse Strength Respiratory Rate 24 23 19 Respiratory Effort / Characteristics Respiratory Depth Respiratory Pattern Blood Pressure 117/72 Blood Pressure Mean 87 Blood Pressure Position Pulse Oximetry 93 93 93 Oxygen Delivery Method Oxygen Flow Rate Sepsis Recent Fever Within 48 Hours Sepsis New/Unexplained Change in Mental Status Sepsis Action Taken by Nursing Pulse Oximetry Post Tiitration 03/21/21 22:00 Temperature Temperature Source Pulse Rate 68 Pulse Rate from SpO2 Sensor 68 Pulse Rhythm Pulse Strength Respiratory Rate 19 Respiratory Effort / Characteristics Respiratory Depth Respiratory Pattern Blood Pressure 120/75 Blood Pressure Mean 90 Blood Pressure Position Pulse Oximetry 93 Oxygen Delivery Method Nasal Cannula Oxygen Flow Rate 2 Sepsis Recent Fever Within 48 Hours Sepsis New/Unexplained Change in Mental Status Sepsis Action Taken by Nursing Pulse Oximetry Post Tiitration Laboratory Data Attestation: I reviewed the patient's lab results. Result diagrams: 03/21/21 18:43 03/21/21 18:43 Lab Results 03/21/21 03/21/21 03/21/21 Range/Units 18:43 18:43 18:43 WBC 10.13 (4.8-10.8) K/uL RBC 4.76 (4.2-5.4) M/uL Hgb 13.9 (12.0-16.0) g/dL Hct 41.3 (37-47) % MCV 86.8 (80-100) fL MCH 29.2 (25-34) pg MCHC 33.7 (32-36) g/dL RDW Std Deviation 47.1 H (36.4-46.3) fL RDW Coeff of Jazmyn 14.8 H (11.5-14.5) % Plt Count 168 (130-400) K/uL MPV 10.3 (7.4-10.4) fL Immature Gran % (Auto) 0.2 % Neut % (Auto) 85.0 % Lymph % (Auto) 9.2 % [place] % (Auto) 5.5 % Eos % (Auto) 0.0 % Baso % (Auto) 0.1 % Neut # (Auto) 8.61 H (1.4-6.5) K/uL Lymph # (Auto) 0.93 L (1.2-3.4) K/uL [place] # (Auto) 0.56 (0.11-0.59) K/uL Eos # (Auto) 0.00 (0-0.5) K/uL Baso # (Auto) 0.01 (0-0.2) K/uL Immature Gran # (Auto) 0.02 (0.00-0.02) K/uL Sodium 134 L (136-145) mmol/L Potassium 4.0 (3.5-5.1) mmol/L Chloride 101 (98-107) mmol/L Carbon Dioxide 25 (21-32) mmol/L Anion Gap 8.0 (3-11) BUN 15 (7-18) mg/dl Creatinine 1.10 (0.6-1.2) mg/dl Est Cr Clr Drug Dosing 50.9 ml/min Est GFR ( Amer) 62.8 ml/min Est GFR (Non-Af Amer) 54.1 ml/min BUN/Creatinine Ratio 13.9 (10-20) Glucose 130 H (70-99) mg/dl Lactate (0.4-2.0) mmol/L Calcium 8.6 (8.5-10.1) mg/dl Phosphorus 2.7 (2.5-4.9) mg/dl Magnesium 1.9 (1.8-2.4) mg/dl Total Bilirubin 0.5 (0.2-1) mg/dl AST 23 (15-37) U/L ALT 23 (12-78) Alkaline Phosphatase 91 (45-117) U/L Troponin I < 0.015 (0-0.045) ng/ml NT-Pro-B Natriuret Pep 350 (0-900) pg/ml Total Protein 7.4 (6.4-8.2) gm/dl Albumin 3.3 L (3.4-5.0) gm/dl Globulin 4.1 H (2.5-4.0) gm/dl Albumin/Globulin Ratio 0.8 L (0.9-2) Lipase 147 (73-393) U/L Procalcitonin (0-0.5) ng/ml SARS-CoV-2 (PCR) (Negative) Influenza Type A (PCR) (Neg) Influenza Type B (PCR) (Neg) RSV (RT-PCR) (Neg) 03/21/21 03/21/21 03/21/21 Range/Units 20:38 22:28 22:28 WBC (4.8-10.8) K/uL RBC (4.2-5.4) M/uL Hgb (12.0-16.0) g/dL Hct (37-47) % MCV (80-100) fL MCH (25-34) pg MCHC (32-36) g/dL RDW Std Deviation (36.4-46.3) fL RDW Coeff of Jazmyn (11.5-14.5) % Plt Count (130-400) K/uL MPV (7.4-10.4) fL Immature Gran % (Auto) % Neut % (Auto) % Lymph % (Auto) % [place] % (Auto) % Eos % (Auto) % Baso % (Auto) % Neut # (Auto) (1.4-6.5) K/uL Lymph # (Auto) (1.2-3.4) K/uL [place] # (Auto) (0.11-0.59) K/uL Eos # (Auto) (0-0.5) K/uL Baso # (Auto) (0-0.2) K/uL Immature Gran # (Auto) (0.00-0.02) K/uL Sodium (136-145) mmol/L Potassium (3.5-5.1) mmol/L Chloride (98-107) mmol/L Carbon Dioxide (21-32) mmol/L Anion Gap (3-11) BUN (7-18) mg/dl Creatinine (0.6-1.2) mg/dl Est Cr Clr Drug Dosing ml/min Est GFR ( Amer) ml/min Est GFR (Non-Af Amer) ml/min BUN/Creatinine Ratio (10-20) Glucose (70-99) mg/dl Lactate 0.8 (0.4-2.0) mmol/L Calcium (8.5-10.1) mg/dl Phosphorus (2.5-4.9) mg/dl Magnesium (1.8-2.4) mg/dl Total Bilirubin (0.2-1) mg/dl AST (15-37) U/L ALT (12-78) Alkaline Phosphatase (45-117) U/L Troponin I (0-0.045) ng/ml NT-Pro-B Natriuret Pep (0-900) pg/ml Total Protein (6.4-8.2) gm/dl Albumin (3.4-5.0) gm/dl Globulin (2.5-4.0) gm/dl Albumin/Globulin Ratio (0.9-2) Lipase (73-393) U/L Procalcitonin 0.21 (0-0.5) ng/ml SARS-CoV-2 (PCR) NEGATIVE (Negative) Influenza Type A (PCR) Negative (Neg) Influenza Type B (PCR) Negative (Neg) RSV (RT-PCR) Negative (Neg) Administered Medications Methylprednisolone 40 mg/ (Syringe) 0.64 mls @ 1.5 mls/min IV Q8H [facility] Stop: 04/21/21 01:59 Last Admin: 03/22/21 01:05 Dose: 1.5 mls/min Documented by: [id number] Levothyroxine Sodium (Levothyroxine Sodium 75 Mcg Tablet) 75 mcg PO DAILYBB [facility] Stop: 04/21/21 06:29 Last Admin: 03/22/21 06:05 Dose: 75 mcg Documented by: [id number] Discontinued Medications Albuterol (Albuterol Hfa 8 Gm Inhaler) 2 puffs INH NOW ONE Stop: 03/21/21 18:16 Last Admin: 03/21/21 18:51 Dose: 2 puffs Documented by: [id number] Dexamethasone Sodium Phosphate (DexamethasonePf 10 Mg/Ml Vial) 6 mg IV NOW ONE Stop: 03/21/21 18:26 Last Admin: 03/21/21 18:53 Dose: 6 mg Documented by: [id number] Guaifenesin (Guaifenesin 600 Mg Tabcr) 600 mg PO NOW STA Stop: 03/21/21 18:16 Last Admin: 03/21/21 18:52 Dose: 600 mg Documented by: [id number] Sodium Chloride (Nss 1000ml) 1,000 mls @ 999 mls/hr IV .Q1H1M STA Stop: 03/21/21 19:23 Last Infusion: 03/21/21 19:59 Dose: 0 mls/hr Documented by: [id number] Admin: 03/21/21 18:58 Dose: 999 mls/hr Documented by: [id number] Acetaminophen (Ofirmev) 1,000 mg in 100 mls @ 400 mls/hr IV NOW STA Stop: 03/21/21 18:38 Last Infusion: 03/21/21 22:01 Dose: 0 mls/hr Documented by: [id number] Admin: 03/21/21 18:53 Dose: 400 mls/hr Documented by: [id number] Ceftriaxone Sodium (Rocephin) 2,000 mg in 70 mls @ 140 mls/hr IV NOW STA Stop: 03/21/21 22:19 Last Infusion: 03/21/21 23:06 Dose: 0 mls/hr Documented by: [id number] Admin: 03/21/21 22:36 Dose: 140 mls/hr Documented by: [id number] Azithromycin 500 mg/ Dextrose 255 mls @ 127.5 mls/hr IV NOW STA Stop: 03/21/21 23:49 Last Infusion: 03/22/21 01:15 Dose: 0 mls/hr Documented by: [id number] Admin: 03/21/21 23:14 Dose: 127.5 mls/hr Documented by: [id number] Ketorolac Tromethamine (Ketorolac Tromethamine 15 Mg/Ml Vial) 15 mg IV NOW STA Stop: 03/21/21 18:25 Last Admin: 03/21/21 18:54 Dose: 15 mg Documented by: [id number] Ondansetron HCl (Ondansetron Inj 2 Mg/Ml 2 Ml Vial) 4 mg IV NOW STA Stop: 03/21/21 18:26 Last Admin: 03/21/21 18:54 Dose: 4 mg Documented by: [id number] Sodium Chloride (Sodium Chloride 0.65% Na Soln 45 Ml ([place])) 2 sprays NA NOW ONE Stop: 03/21/21 18:16 Last Admin: 03/21/21 18:52 Dose: 2 sprays Documented by: [id number] Imaging Data Radiologist's Impression: Chest X-Ray 03/21/21 18:23 XR chest 1V portable HISTORY: Atypical Chest Pain COMPARISON: Chest 04/10/2020 FINDINGS: Cardiac silhouette is mildly enlarged. This is increased in size. No pleural effusions. No pneumothorax. No new focal lung consolidations. There is mild perihilar interstitial/vascular thickening suggestive of mild congestive change. IMPRESSION: Cardiomegaly with mild central pulmonary vascular congestion without overt edema. This has progressed in the interval. ACT 112: Negative or not required by law. Electronically signed by: Ben Marroquin M.D. 03/21/2021 7:01 PM Discharge Plan Visit Data Chief Complaint: Shortness of Breath/Dyspnea Stated Complaint: SOB, COUGH, CHEST TIGHTNESS ED Provider: Ranjith Thompson Discharge Problem: Community acquired pneumonia, Lab test negative for COVID-19 virus, Hypoxia Patient Disposition: Admitted As Inpatient Discharge Instructions Interventions: ED Discharge Assessment Last Done: 03/21/21 23:53 Discharge Problem: Community acquired pneumonia Qualifiers: Laterality: right Lung location: middle lobe of lung Qualified Code(s): J18.9 - Pneumonia, unspecified organism
[2021-03-21 18:52] LABS: Basophils # (auto) 0.01 K/uL (0-0.2); Basophils % (auto) 0.1 %; Hematocrit (blood only) 41.3 % (37-47); Hemoglobin 13.9 g/dL (12.0-16.0); Immature Granulocytes # (auto) 0.02 K/uL (0.00-0.02); Immature Granulocytes % (auto) 0.2 %; Lymphocytes # (auto) 0.93 K/uL (1.2-3.4); Lymphocytes % (auto) 9.2 %; Mean Corpuscular Hemoglobin 29.2 pg (25-34); Mean Corpuscular Hgb Conc 33.7 g/dL (32-36); Mean Corpuscular Volume 86.8 fL (80-100); Mean Platelet Volume 10.3 fL (7.4-10.4); Monocytes # (auto) 0.56 K/uL (0.11-0.59); Monocytes % (auto) 5.5 %; Neutrophils # (auto) 8.61 K/uL (1.4-6.5); Platelet Count 168 K/uL (130-400); RDW Coefficient of Variation 14.8 % (11.5-14.5); RDW Standard Deviation 47.1 fL (36.4-46.3); Red Blood Count 4.76 M/uL (4.2-5.4); White Blood Count 10.13 K/uL (4.8-10.8)
--- NOTE | 2021-03-21 19:02 | XRay Report ---
XR chest 1V portable HISTORY: Atypical Chest Pain COMPARISON: Chest 04/10/2020 FINDINGS: Cardiac silhouette is mildly enlarged. This is increased in size. No pleural effusions. No pneumothorax. No new focal lung consolidations. There is mild perihilar interstitial/vascular thicken ing suggestive of mild congestive change. IMPRESSION: Cardiomegaly with mild central pulmonary vascular congestion without overt edema. This has progressed in the interval. ACT 112: Negative or not required by law. Electronically signed by: Ben Marroquin M.D. 03/21/2021 7:01 PM
[2021-03-21 19:18] LABS: Alanine Aminotransferase 23 (12-78); Albumin Level 3.3 gm/dl (3.4-5.0); Aspartate Aminotransferase 23 U/L (15-37); BUN Creatinine Ratio 13.9 (10-20); Blood Urea Nitrogen 15 mg/dl (7-18); Calcium 8.6 mg/dl (8.5-10.1); Carbon Dioxide 25 mmol/L (21-32); Chloride 101 mmol/L (98-107); Creatinine Clr Calc Pharmacy 50.9 ml/min; Est GFR (African American) 62.8 ml/min; Est GFR (Non-African American) 54.1 ml/min; Glucose 130 mg/dl (70-99); Lipase 147 U/L (73-393); Magnesium 1.9 mg/dl (1.8-2.4); Sodium 134 mmol/L (136-145)
[2021-03-21 19:29] LABS: Albumin Globulin Ratio 0.8 (0.9-2); Alkaline Phosphatase 91 U/L (45-117); Bilirubin,Total 0.5 mg/dl (0.2-1); Globulin 4.1 gm/dl (2.5-4.0); Phosphorus 2.7 mg/dl (2.5-4.9); Total Protein 7.4 gm/dl (6.4-8.2); Troponin I < 0.015 ng/ml (0-0.045)
[2021-03-21 21:29] LABS: Influenza A virus by PCR Negative (Neg); Influenza B virus by PCR Negative (Neg); RSV by PCR Negative (Neg); SARS CoV2 RNA(COVID-19) InHosp NEGATIVE (Negative)
[2021-03-21] MEDS ORDERED: cefTRIAXone SODIUM 2,000 MG/70 ML BAG IV STA (21:50)
[2021-03-21] MEDS ORDERED: AZITHROMYCIN 500 MG in DEXTROSE 5% 250 ML IV STA (21:50)
--- NOTE | 2021-03-21 22:46 | History & Physical Report ---
Date of Service March 21, 2021 Assessment & Plan (1) Pneumonia: Plan: Bacterial pneumonia right middle lobe/negative COVID-19, influenza and RSV test- Continue ceftriaxone IV and azithromycin IV begun in ED Duonebs every 4 hours while awake and every 2 hours when necessary. Methylprednisolone 40 mg IV every 8 hours with first dose now Guaifenesin extended release 1200 mg p.o. twice daily Nasal cannula oxygen, titrate to keep pulse ox 94-95% (2) Lab test negative for COVID-19 virus: Plan: See above (3) Prediabetes: Plan: Glucose 130 upon admission, will not place on Accu-Cheks unless blood sugars elevated in a.m. May expect to see increase while on methylprednisolone (4) Hypothyroidism: Plan: Continue levothyroxine 75 mcg every morning (5) SVT (supraventricular tachycardia): Plan: Continue metoprolol succinate 25 mg every evening History of Present Illness Chief Complaint: The patient presents to the emergency department with complaint of productive cough, shortness of breath, dyspnea on exertion, generalized body aches, fevers, decreased oral intake and nausea worsening over the past 4 days. Primary Care Provider: Cammie Lockett MD The patient is a 60-year-old female with a past medical history including prediabetes, SVT, hypothyroidism, reflux esophagitis, incisional hernia, hypercholesterolemia, colon adenocarcinoma and adult celiac disease. She presents with symptoms as noted above. Work-up in the emergency department included chest x-ray with right middle lobe pneumonia. COVID-19 testing, influenza A and B, and RSV testing were all negative. She was given by the ED ceftriaxone IV, azithromycin IV, dexamethasone 6 mg IV, and Ventolin HFA 2 puffs. Allergies Allergy/AdvReac Type Severity Reaction Status Date / Time amoxicillin Allergy Mild RASH Verified 03/21/21 18:44 gluten Allergy Mild celiac's Verified 03/21/21 18:44 disease wheat Allergy Mild celiac's Verified 03/21/21 18:44 disease Home Medications Medication Instructions Recorded Confirmed Type cholecalciferol (vitamin D3) 25 1,000 mcg PO QAM 04/10/20 03/21/21 History mcg (1,000 unit) capsule (Vitamin D3) multivitamin 1 tab PO PM 04/10/20 03/21/21 History cyanocobalamin (vitamin B-12) 500 500 mcg PO QAM 09/02/20 03/21/21 History mcg tablet metoprolol succinate 25 mg 25 mg PO PM #90 tab 02/03/21 03/21/21 Rx tablet,extended release 24 hr clindamycin HCl 150 mg capsule 150 mg PO DIRECTED 02/09/21 03/21/21 History levothyroxine 75 mcg capsule 75 mcg PO QAM #90 cap 03/04/21 03/21/21 Rx docusate sodium 100 mg capsule 100 mg PO BID 03/21/21 03/21/21 History Past Med/Surg History Medical History (Updated 03/22/21 @ 00:42 by Deandre Zuluaga MD) Adenocarcinoma of colon HX OF>Right jose-colectomy 01/2019 > no hx chemo Adult celiac disease confirmed via blood test only Constipation History of blood transfusion R/T ANEMIA 2018 History of COVID-29 May 2020>FATIGUE (ALL RESOLVED) Hypercholesterolemia Per records *PT UNAWARE Hypothyroidism Osteoarthritis Prediabetes Solitary thyroid nodule just monitoring SVT (supraventricular tachycardia) dx early 2020> metoprolol for this > no issues since > follows with Dr. Nina Surgical History H/O breast surgery puncture aspiration of cyst H/O hernia repair abdominal hernia x 2 History of colonoscopy History of esophagogastroduodenoscopy (EGD) MAC History of esophagogastroduodenoscopy (EGD) History of tooth extraction History of total left hip replacement Hx of biopsy biopsy thyroid using percutaneous core needle S/P endometrial ablation S/P right hemicolectomy February 05, 2019 laparoscopic extended right hemicolectomy-Dr. Roís Family History Mother Diabetes Family history of diabetes mellitus Coronary heart disease S/P triple vessel bypass Sister Family history of diabetes mellitus Diabetes Other No family history of adverse response to anesthesia Denies family history of Ovarian cancer Breast cancer Colorectal cancer Uterine cancer Social History Smoking Status: Never smoker Second Hand Exposure: No; Hx Alcohol Use: No Hx Substance Use: No Preferred Language: Hungarian Communication Ability: Effective Visual Impairment: No Limitations Hearing Ability: Normal Canceling And Cutting Control Clerk Required: No Beliefs That Will Affect Care: None marital status: Current Living Situation: Spouse current occupational status: employed Feels Safe at Home: Yes Childhood Exposure to Second-Hand Smoke: No Dental Care, Regularly: Yes Physical Activity Frequency: Does not Exercise Seatbelt Use: always Sunscreen Use: Yes Assistive Devices: Glasses Review of Systems Review of Systems: The patient denies chest pain, lower extremity swelling, sore throat, chills, sweats, nausea, vomiting, diarrhea , constipation, abdominal pain, pelvic pain, blood in urine or stool, dysuria, urinary frequency or urgency, headache, memory loss, loss of consciousness, rash, abnormal bruising or bleeding, focal weakness, numbness or tingling in arms or legs, back or neck pain, or night sweats. The review of systems is otherwise negative other than for that already noted ab raul, and at least 10 systems have been reviewed. Physical Exam Physical Exam: The patient is awake, alert and oriented 3, looks very fatigued,normocephalic and atraumatic, lying in bed and in no acute distress. HEENT--PERRL, EOMI, mucous membranes and oropharynx dry. Neck--supple. No JVD. No bruits. Thyroid normal, trachea midline, no adenopathy. Heart--normal S1 and S2. No murmurs, rubs or gallops. Lungs--coarse breath sounds right base and anterior. No respiratory distress, no accessory muscle use. Abdomen--normal bowel sounds and soft. Nontender. Nondistended, no hernias or masses, no organomegaly. Extremities--no cyanosis or clubbing. No edema. Dermatologic--normal skin turgor, normal color, no abnormal lymph nodes, no rash. Neurologic--cranial nerves II through XII grossly intact. Rheumatologic--normal range of motion. Psychiatric--normal affect. Results & Data Results & Data ([facility]) Vital Signs (Past 12 Hours) Vital Signs Temp Pulse Resp BP Pulse Ox 03/21/21 21:00 69 21 118/70 92 03/21/21 20:45 74 21 94 03/21/21 20:30 75 22 113/65 87 L 03/21/21 20:15 79 25 H 86 L 03/21/21 20:00 78 25 H 130/67 86 L 03/21/21 19:45 82 25 H 87 L 01/09/22 19:30 87 21 117/69 92 03/21/21 19:00 83 24 121/67 94 03/21/21 18:54 87 21 96 03/21/21 18:23 94 03/21/21 18:08 38.3 C H 93 H 20 113/70 94 Laboratory Results Laboratory Results WBC 10.13 K/uL (4.8-10.8) 03/21/21 18:43 RBC 4.76 M/uL (4.2-5.4) 03/21/21 18:43 Hgb 13.9 g/dL (12.0-16.0) 03/21/21 18:43 Hct 41.3 % (37-47) 03/21/21 18:43 MCV 86.8 fL (80-100) 03/21/21 18:43 MCH 29.2 pg (25-34) 03/21/21 18:43 MCHC 33.7 g/dL (32-36) 03/21/21 18:43 RDW Std Deviation 47.1 fL (36.4-46.3) H 03/21/21 18:43 RDW Coeff of Jazmyn 14.8 % (11.5-14.5) H 03/21/21 18:43 Plt Count 168 K/uL (130-400) 03/21/21 18:43 MPV 10.3 fL (7.4-10.4) 03/21/21 18:43 Immature Gran % (Auto) 0.2 % 03/21/21 18:43 Neut % (Auto) 85.0 % 03/21/21 18:43 Lymph % (Auto) 9.2 % 03/21/21 18:43 Stone % (Auto) 5.5 % 03/21/21 18:43 Eos % (Auto) 0.0 % 03/21/21 18:43 Baso % (Auto) 0.1 % 03/21/21 18:43 Neut # (Auto) 8.61 K/uL (1.4-6.5) H 03/21/21 18:43 Lymph # (Auto) 0.93 K/uL (1.2-3.4) L 03/21/21 18:43 Stone # (Auto) 0.56 K/uL (0.11-0.59) 03/21/21 18:43 Eos # (Auto) 0.00 K/uL (0-0.5) 03/21/21 18:43 Baso # (Auto) 0.01 K/uL (0-0.2) 03/21/21 18:43 Immature Gran # (Auto) 0.02 K/uL (0.00-0.02) 03/21/21 18:43 Sodium 134 mmol/L (136-145) L 03/21/21 18:43 Potassium 4.0 mmol/L (3.5-5.1) 03/21/21 18:43 Chloride 101 mmol/L (98-107) 03/21/21 18:43 Carbon Dioxide 25 mmol/L (21-32) 03/21/21 18:43 Anion Gap 8.0 (3-11) 03/21/21 18:43 BUN 15 mg/dl (7-18) 03/21/21 18:43 Creatinine 1.10 mg/dl (0.6-1.2) 03/21/21 18:43 Est Cr Clr Drug Dosing 50.9 ml/min 03/21/21 18:43 Est GFR ( Amer) 62.8 ml/min 03/21/21 18:43 Est GFR (Non-Af Amer) 54.1 ml/min 03/21/21 18:43 BUN/Creatinine Ratio 13.9 (10-20) 03/21/21 18:43 Glucose 130 mg/dl (70-99) H 03/21/21 18:43 Lactate 0.8 mmol/L (0.4-2.0) 03/21/21 22:28 Calcium 8.6 mg/dl (8.5-10.1) 03/21/21 18:43 Phosphorus 2.7 mg/dl (2.5-4.9) 03/21/21 18:43 Magnesium 1.9 mg/dl (1.8-2.4) 03/21/21 18:43 Total Bilirubin 0.5 mg/dl (0.2-1) 03/21/21 18:43 AST 23 U/L (15-37) 03/21/21 18:43 ALT 23 (12-78) 03/21/21 18:43 Alkaline Phosphatase 91 U/L (45-117) 03/21/21 18:43 Troponin I < 0.015 ng/ml (0-0.045) 03/21/21 18:43 NT-Pro-B Natriuret Pep 350 pg/ml (0-900) 03/21/21 18:43 Total Protein 7.4 gm/dl (6.4-8.2) 03/21/21 18:43 Albumin 3.3 gm/dl (3.4-5.0) L 03/21/21 18:43 Globulin 4.1 gm/dl (2.5-4.0) H 03/21/21 18:43 Albumin/Globulin Ratio 0.8 (0.9-2) L 03/21/21 18:43 Lipase 147 U/L (73-393) 03/21/21 18:43 Procalcitonin 0.21 ng/ml (0-0.5) 03/21/21 22:28 SARS-CoV-2 (PCR) NEGATIVE (Negative) 03/21/21 20:38 Influenza Type A (PCR) Negative (Neg) 03/21/21 20:38 Influenza Type B (PCR) Negative (Neg) 03/21/21 20:38 RSV (RT-PCR) Negative (Neg) 03/21/21 20:38 SARS-CoV-2, RNA, NAAT NEGATIVE (NEGATIVE) 03/21/21 Unknown Impressions Chest X-Ray 03/21/21 18:23 XR chest 1V portable HISTORY: Atypical Chest Pain COMPARISON: Chest 04/10/2020 FINDINGS: Cardiac silhouette is mildly enlarged. This is increased in size. No pleural effusions. No pneumothorax. No new focal lung consolidations. There is mild perihilar interstitial/vascular thickening suggestive of mild congestive change. IMPRESSION: Cardiomegaly with mild central pulmonary vascular congestion without overt edema. This has progressed in the interval. ACT 112: Negative or not required by law. Electronically signed by: Ben Marroquin M.D. 03/21/2021 7:01 PM Code Status & VTE Plan Code Status Full code VTE Prophylaxis Plan VTE Prophylaxis will be ordered: Yes PG Care Time/CCT Total # of Minutes Spent Total Time Spent with Patient: Total time spent is greater than 50% in coordination of care (as documented) at patient's floor/unit and/or counseling patient: Coding Level of Care Code 66697 Initial Inpt Care Lvl 3 Diagnoses Pneumonia J18.9 Lab test negative for COVID-19 virus Z20.822 Prediabetes R73.03 Hypothyroidism E03.9 SVT (supraventricular tachycardia) I47.1
[2021-03-21] MEDS ORDERED: ACETAMINOPHEN 325 MG TAB PO PRN (23:50)
[2021-03-21] MEDS ORDERED: ONDANSETRON INJ 2 MG/ML 2 ML VIAL IV PRN (23:50)
[2021-03-22 01:17] LABS: Appearance Urine Clear (Clear); Bilirubin Urine Negative (Negative); Blood Urine Negative (Negative); Color Urine Yellow; Glucose Urine UA Negative (Negative); Ketones Urine Negative (Negative); Leukocyte Esterase Urine Negative (Negative); Nitrite Urine Negative (Negative); Protein Urine Negative (Negative); Specific Gravity Urine 1.012 (1.000-1.030); Urobilinogen Urine Negative (Negative)
[2021-03-22] MEDS ORDERED: methylPREDNISolone 40 MG in SYRINGE 0 ML IV SCH (02:00)
[2021-03-22] MEDS: LEVOTHYROXINE SODIUM 75 MCG TABLET PO SCH (06:05)
[2021-03-22] MEDS ORDERED: ALBUT/IPRATROP 3MG/0.5MG NEB 3 ML VIAL NEB SCH (07:00)
[2021-03-22] MEDS: CYANOCOBALAMIN 500 MCG TABLET (VITAMIN B-12) PO SCH (07:13)
[2021-03-22] MEDS: CHOLECALCIFEROL 1,000 UNITS 25 MCG TAB PO SCH (07:13)
[2021-03-22] MEDS: ENOXAPARIN INJ 40 MG/0.4 ML SYR SQ SCH (07:13)
--- NOTE | 2021-03-22 08:11 | Hospitalist Progress Note ---
Date of Service March 22, 2021 Assessment & Plan (1) Pneumonia: Plan: Right middle lobe comm acq pneumonia. Bacterial vs nonCOVID viral. Negative COVID-19, influenza and RSV on admission 03/21 - IV Ctx + PO Azithro - 5-7d course for CAP (D1 = 03/21. Last dose 03/25 PM) - Stop Duonebs given no Asthma or COPD & no wheezing on exam - Stop steroids given negative COVID testing & CXR appears inconsistent w/ COVID & treating as CAP If change/worsening symptoms, would consider repeat COVID PCR & resume steroids - Guaifenesin BID PRN congestion - Nasal cannula oxygen, titrate to pulse ox >92%, wean as able (2) Lab test negative for COVID-19 virus: Plan: See above (3) Prediabetes: Plan: Monitor BG on daily RFP - expect elevation 2/2 methylprednisolone No need for insulin sliding scale at present (4) Hypothyroidism: Plan: Continue levothyroxine 75 mcg every morning (5) SVT (supraventricular tachycardia): Plan: No current SVT Continue metoprolol succinate 25 mg every evening (6) OMAR (acute kidney injury): Plan: Cr 1.1 on admission from baseline 0.7-0.8 Suspect due to dehydratin in s/o poor oral intake during illness S/p IVF in ED 03/21 - Recheck today Plan: Bowel regimen (chronic constipation): senna BID + miralax DVT ppx: lovenox daily Code: Full Dispo: Home when medically able (tomorrow at soonest), currently on O2 but weaning Subjective Marcela Sorenson is a 60F admitted 03/21 from the ED for 4 days of cough, congestion, fevers, body aches, dyspnea, nausea, and poor oral intake. Her past medical history is notable for cecal adenocarcinoma s/p R hemicolectomy w/ ICA 01/2019, Celiac disease, Chronic constipation, Hypothyroidism, Hyperlipidemia, SVT, prediabetes. ED Course- Given IV fluids, albuterol MDI, dexamethasone, guafenisen. SpO2 dropped to 88%, started on supplemental O2 & admitted. Started IV Ctx & azithro. - Labs CBC wnl but relative inc'd WBC (ntrphl predom) & dec'd Plt from baseline OMAR w/ Cr 1.1 from baseline 0.7-0.8 with normal BUN. UA bland Trop, NTproBNP, lactate, procalcitonin normal/negative on admission COVID NAAT & PCR, Flu A/B, RSV all negative on admission Blood cultures in process - Admission CXR 03/21 notable for RML infiltrate, increased interstitial opacity, cardiomegaly, pulmonary congestion Today: - 4LPM NC, increased from 2LPM overnight. Able to wean to 3LPM while seeing her - BP & HR unremarkable - Feeling better after IV fluids. Has an appetite. Ongoing chest tightness & cough, but slightly better than yesterday. Cough intermittently productive of whitish/yellow/grayish sputum, nonbloody Review of Systems Review of Systems: No chest pain, abdominal pain, headache, leg swelling Persistent constipation Mild sore throat, nasal congestion Physical Exam Physical Exam: General: Tired appearing, no acute distress, sitting in bed comfortably CV: Normal rate, regular rhythm. No murmurs. Resp: Breathing comfortably on 3LNC. No tachypnea or increased WOB. Bilateral mid/lower lung crackles R>L. No wheezing. Abd: Soft, nontender, hypoactive bowel sounds Ext: Warm, well perfused. No edema HEENT: mild pharyngeal erythema without exudate, PERRLA Neuro: awake alert oriented answers questions appropriately Results & Data Results & Data ([facility]) Vital Signs (Past 12 Hours) Vital Signs Temp Pulse Pulse Resp BP BP Pulse Ox 03/22/21 07:11 98.1 F 64 18 130/74 98 03/22/21 04:00 61 17 109/70 94 03/22/21 00:45 97.7 F 66 18 107/67 95 03/21/21 22:45 64 22 96 03/21/21 22:00 68 19 120/75 93 03/21/21 21:45 68 19 93 03/21/21 21:30 69 23 117/72 93 03/21/21 21:15 70 24 93 03/21/21 21:00 69 21 118/70 92 03/21/21 20:45 74 21 94 03/21/21 20:30 75 22 113/65 87 L 03/21/21 20:15 79 25 H 86 L PG Care Time/CCT Total # of Minutes Spent Total Time Spent with Patient: Total time spent is greater than 50% in coordination of care (as documented) at patient's floor/unit and/or counseling patient: Coding Level of Care Code 50259 Subseq Hosp Care Lvl 3 Diagnoses Pneumonia J18.9 Pneumonia type: due to unspecified organism Laterality: right Lung location: middle lobe of lung Lab test negative for COVID-19 virus Z20.822 Prediabetes R73.03 Hypothyroidism E03.9 SVT (supraventricular tachycardia) I47.1 OMAR (acute kidney injury) N17.9 (1) Pneumonia Pneumonia type: due to unspecified organism Laterality: right Lung location: middle lobe of lung Qualified Code(s): J18.9 - Pneumonia, unspecified organism
--- NOTE | 2021-03-22 08:37 | Electrocardiogram Report ---
Test Reason : Blood Pressure : / mmHG Vent. Rate : 084 BPM Atrial Rate : 084 BPM P-R Int : 142 ms QRS Dur : 082 ms QT Int : 358 ms P-R-T Axes : 066 005 002 degrees QTc Int : 423 ms Normal sinus rhythm Normal ECG When compared with ECG of 10-APR-2020 20:38, No significant change was found Confirmed by Mehdi Brooke ([id number]) on 03/22/2021 8:37:04 AM Referred By: REFERRED SELF Confirmed By:Mehdi Brooke
[2021-03-22] MEDS ORDERED: SENNA 8.6 MG TAB PO SCH (09:00)
[2021-03-22] MEDS ORDERED: guaiFENesin 600 MG TABCR PO SCH (09:00)
[2021-03-22] MEDS ORDERED: DOCUSATE SODIUM 100 MG CAP PO SCH (09:00)
[2021-03-22] MEDS ORDERED: ONDANSETRON 4 MG OD TAB PO PRN (09:14)
[2021-03-22] MEDS ORDERED: guaiFENesin 600 MG TABCR PO PRN (09:25)
[2021-03-22] MEDS: POLYETHYLENE (MIRALAX) 17 GM PACK PO SCH (09:32)
[2021-03-22 10:27] LABS: BUN Creatinine Ratio 15.3 (10-20); Calcium 8.8 mg/dl (8.5-10.1); Creatinine Clr Calc Pharmacy 54.9 ml/min; Est GFR (African American) 68.8 ml/min; Est GFR (Non-African American) 59.3 ml/min; Phosphorus 2.2 mg/dl (2.5-4.9); Potassium 3.6 mmol/L (3.5-5.1)
[2021-03-22] MEDS ORDERED: DOCUSATE SODIUM/SENNA 50/8.6MG TAB PO ONE (11:19)
[2021-03-22] MEDS ORDERED: METOPROLOL SUCC 25MG EXT REL TAB PO SCH (21:00)
[2021-03-22] MEDS ORDERED: AZITHROMYCIN 250 MG TAB PO SCH (21:00)
[2021-03-22] MEDS ORDERED: MULTIVITAMIN TAB PO SCH (21:00)
[2021-03-22] MEDS: SENNA 8.6 MG TAB PO SCH (21:43)
[2021-03-22] MEDS ORDERED: cefTRIAXone SODIUM 1,000 MG in DEXTROSE 5% 50 ML IV SCH (22:00)
[2021-03-22] MEDS ORDERED: AZITHROMYCIN 500 MG in DEXTROSE 5% 250 ML IV SCH (23:00)
[2021-03-23] MEDS: LEVOTHYROXINE SODIUM 75 MCG TABLET PO SCH (06:00)
[2021-03-23 07:17] LABS: Basophils # (auto) 0.02 K/uL (0-0.2); Basophils % (auto) 0.2 %; Eosinophils # (auto) 0.01 K/uL (0-0.5); Eosinophils % (auto) 0.1 %; Hematocrit (blood only) 37.9 % (37-47); Hemoglobin 12.5 g/dL (12.0-16.0); Immature Granulocytes # (auto) 0.02 K/uL (0.00-0.02); Immature Granulocytes % (auto) 0.2 %; Lymphocytes # (auto) 2.56 K/uL (1.2-3.4); Lymphocytes % (auto) 22.4 %; Mean Corpuscular Hemoglobin 28.8 pg (25-34); Mean Corpuscular Volume 87.3 fL (80-100); Mean Platelet Volume 10.3 fL (7.4-10.4); Monocytes # (auto) 0.56 K/uL (0.11-0.59); Monocytes % (auto) 4.9 %; Neutrophils # (auto) 8.27 K/uL (1.4-6.5); Neutrophils % (auto) 72.2 %; Platelet Count 169 K/uL (130-400); RDW Standard Deviation 48.4 fL (36.4-46.3); Red Blood Count 4.34 M/uL (4.2-5.4); White Blood Count 11.44 K/uL (4.8-10.8)
[2021-03-23 07:47] LABS: Albumin Level 2.7 gm/dl (3.4-5.0); BUN Creatinine Ratio 21.6 (10-20); Est GFR (African American) 83.3 ml/min; Est GFR (Non-African American) 71.9 ml/min; Potassium 4.1 mmol/L (3.5-5.1)
[2021-03-23 07:48] LABS: Phosphorus 1.9 mg/dl (2.5-4.9)
--- NOTE | 2021-03-23 07:49 | Hospitalist Progress Note ---
Date of Service March 23, 2021 Assessment & Plan (1) Pneumonia: Plan: Right middle lobe comm acq pneumonia. Bacterial vs nonCOVID viral. Negative COVID-19, influenza and RSV on admission 03/21. Normal procalcitonin & NTproBNP Admission CXR 03/21 RML infiltrate, increased interstitial opacity, cardiomegaly, pulmonary congestion Received IV methylpred 03/21 on day of admission. Stopped 03/22 d/t negative COVID testing & CXR appears inconsistent w/ COVID & treating as CAP - IV Ctx + PO Azithro - 7d course for CAP (D1 = 03/21. Last dose 03/27 PM). Will switch Ctx to augmentin on discharge - Guaifenesin BID PRN congestion - Tessalon perles PRN cough - IS/BPH - Weaned of NC O2 at rest. Desat study today to see if any homegoing O2 needs w/ exertion. (2) Lab test negative for COVID-19 virus: Plan: See above (3) Prediabetes: Plan: Monitor BG on daily RFP. Normalized. No need for insulin sliding scale or BG checks. (4) Hypothyroidism: Plan: Continue levothyroxine 75 mcg every morning (5) SVT (supraventricular tachycardia): Plan: No current SVT Continue metoprolol succinate 25 mg every evening (6) OMAR (acute kidney injury): Plan: RESOLVED Cr 1.1 on admission from baseline 0.7-0.8. Now back to baseline s/p IVF in ED 03/21 Suspect due to dehydration in s/o poor oral intake during illness (7) Hypophosphatemia: Plan: Phos 1.9 30mmol Kphos repletion Plan: Bowel regimen (chronic constipation): senna BID + miralax qD + lactulose BID PRN DVT ppx: lovenox daily Code: Full Dispo: Home, possibly today pending desat study - Will need work note & new order for CT CAP (rescheduled from 03/23) on DC Admission and Anticipated Discharge Date Admission Date: March 21, 2021 Fortino Sorenson is a 60F admitted 03/21 from the ED for 4 days of cough, congestion, fevers, body aches, dyspnea, nausea, and poor oral intake. Her past medical history is notable for cecal adenocarcinoma s/p R hemicolectomy w/ ICA 01/2019, Celiac disease, Chronic constipation, Hypothyroidism, Hyperlipidemia, SVT, prediabetes. Today: - Afebrile HDS. 3LPM NC, weaned to RA saturating 93-96% while seeing her this AM - AM labs noting leukocytosis (expected given steroids administered 03/21), Cr improved to baseline 0.8, Phos low 1.9 - Blood cultures NGTD - Feeling tired (slept poorly), ongoing cough but appetite & SOB much better than when arrived. Would feel ok going home if able to remain off O2 today - Still no BM - Was scheduled for outpatient CT CAP today for onc surveillance given h/o cecal adenoca Review of Systems Review of Systems: No chest pain, abdominal pain, headache, leg swelling Persistent constipation Congestion improving Physical Exam Physical Exam: General: Tired appearing, no acute distress, sitting in bed comfortably CV: Normal rate, regular rhythm. No murmurs. Resp: Breathing comfortably on RA (weaned off NC). No tachypnea or increased WOB. Bilateral scattered mid/lower lung crackles R>L. No wheezing. Abd: Soft, nontender, hypoactive bowel sounds Ext: Warm, well perfused. No edema Neuro: awake alert oriented answers questions appropriately Results & Data Results & Data ([facility]) Vital Signs (Past 12 Hours) Vital Signs Temp Pulse Pulse Resp BP Pulse Ox 03/23/21 07:18 98.8 F 56 L 18 130/78 95 03/23/21 06:28 78 03/23/21 04:00 98.2 F 61 18 126/82 94 03/22/21 23:00 98.2 F 61 18 130/79 98 03/22/21 22:19 56 L PG Care Time/CCT Total # of Minutes Spent Total Time Spent with Patient: Total time spent is greater than 50% in coordination of care (as documented) at patient's floor/unit and/or counseling patient: Coding Level of Care Code 02666 Subseq Hosp Care Lvl 2 Diagnoses Pneumonia J18.9 Laterality: right Lung location: middle lobe of lung Pneumonia type: due to unspecified organism Lab test negative for COVID-19 virus Z20.822 Prediabetes R73.03 Hypothyroidism E03.9 SVT (supraventricular tachycardia) I47.1 OMAR (acute kidney injury) N17.9 Hypophosphatemia E83.39 (1) Pneumonia Laterality: right Lung location: middle lobe of lung Pneumonia type: due to unspecified organism Qualified Code(s): J18.9 - Pneumonia, unspecified organism
[2021-03-23] MEDS ORDERED: POTASSIUM PHOS 3 MMOL/1 ML INFUSION IV STA (07:53)
[2021-03-23] MEDS: SENNA 8.6 MG TAB PO SCH (08:13)
[2021-03-23] MEDS: CYANOCOBALAMIN 500 MCG TABLET (VITAMIN B-12) PO SCH (08:13)
[2021-03-23] MEDS: POLYETHYLENE (MIRALAX) 17 GM PACK PO SCH (08:13)
[2021-03-23] MEDS: CHOLECALCIFEROL 1,000 UNITS 25 MCG TAB PO SCH (08:13)
[2021-03-23] MEDS: ENOXAPARIN INJ 40 MG/0.4 ML SYR SQ SCH (08:13)
[2021-03-23] MEDS: BENZONATATE 100 MG CAPSULE PO PRN ×2 (08:14→14:35)
[2021-03-23] MEDS ORDERED: POTASSIUM PHOSPHATE 30 MMOL in SODIUM CHLORIDE 0.9% 500 ML IV ONE (08:30)
[2021-03-23] MEDS ORDERED: LACTULOSE SYRUP 20 GM/30 ML UDC PO PRN (09:22)
--- NOTE | 2021-03-23 15:22 | Discharge Summary ---
Date of Service March 23, 2021 Admission HPI Per Admitting Provider The patient is a 60-year-old female with a past medical history including prediabetes, SVT, hypothyroidism, reflux esophagitis, incisional hernia, hypercholesterolemia, colon adenocarcinoma and adult celiac disease. She presents with symptoms as noted above. Work-up in the emergency department included chest x-ray with right middle lobe pneumonia. COVID-19 testing, influenza A and B, and RSV testing were all negative. She was given by the ED ceftriaxone IV, azithromycin IV, dexamethasone 6 mg IV, and Ventolin HFA 2 puffs. Principal Diagnosis Community Acquired Pneumonia Discharge Exam General: Tired appearing, no acute distress, sitting in bed comfortably CV: Normal rate, regular rhythm. No murmurs. Resp: Breathing comfortably on RA. No tachypnea or increased WOB. Bilateral scattered mid/lower lung crackles R>L. No wheezing. Abd: Soft, nontender, hypoactive bowel sounds Ext: Warm, well perfused. No edema Neuro: awake alert oriented answers questions appropriately Discharge Data Allergies Allergy/AdvReac Type Severity Reaction Status Date / Time amoxicillin Allergy Mild RASH Verified 03/21/21 18:44 gluten Allergy Mild celiac's Verified 03/21/21 18:44 disease wheat Allergy Mild celiac's Verified 03/21/21 18:44 disease Consultations 03/21/21 21:51 ED Decision to Admit Stat Hospital Course (1) Pneumonia: Right middle lobe comm acq pneumonia. Bacterial vs nonCOVID viral. Negative COVID-19, influenza and RSV on admission 03/21. Normal procalcitonin & NTproBNP Admission CXR 03/21 RML infiltrate, increased interstitial opacity, cardiomegaly, pulmonary congestion Received IV methylpred 03/21 on day of admission. Stopped 03/22 d/t negative COVID testing & CXR appears inconsistent w/ COVID & treating as CAP Completed IV Ctx + PO Azithro x 2d inpatient with clinical improvement in cough, dyspnea, and resolution of hypoxia Will complete 5 additional days of Cefpodoxime 200mg BID + Azithromycin 500md daily for total 7d course for CAP (D1 = 03/21. Last dose 15 PM). Unable to use augmentin due to listed allergy to amoxicillin. Tesmarcela bartlett PRN cough Weaned of NC O2 & passed desat study w/ no oxygen requirement on day of discharge. (2) Lab test negative for COVID-19 virus: See above (3) Prediabetes: Mild hyperglycemia during admission due to steroid use. Did not require treatment (4) Hypothyroidism: Continue levothyroxine 75 mcg every morning (5) SVT (supraventricular tachycardia): No SVT Continue metoprolol succinate 25 mg every evening (6) OMAR (acute kidney injury): RESOLVED Cr 1.1 on admission from baseline 0.7-0.8. Now back to baseline s/p IVF in ED 03/21 Suspect due to dehydration in s/o poor oral intake during illness (7) Constipation: Chronic. Increased bowel regimen to senna BID + miralax daily + lactulose PRN Stopped docusate due to ineffectiveness Total Time Total Time Spent Total Time Spent (In Minutes): 25 Total Time Includes: Examination of the Patient, Discharge Planning and Medication Reconciliation Discharge Plan Discharge Items Patient Disposition: Home - Self-Care Reason For Visit: CAP Discharge Diagnosis: Pneumonia Condition on Discharge: Good Activity: Resume your previous activity Exercise/Sports: Gradually increase as tolerated Non-emergency contact: Primary Care Provider Call non-emergency contact if: you have any medication questions, your symptoms worsen and your temperature is above 101 Follow-up/Referrals: Cammie Lockett MD [Primary Care Provider] - 04/02/21 11:15 am Diet: Regular Addtl Attending Provider Instructions: Please complete your antibiotic treatment for pneumonia - Azithromycin 500mg daily (starting tonight, last dose 03/27/21) - Cefpodoxime 200mg twice daily (starting tonight, last dose 03/27/21 evening) Your cough may take some time to resolve. You can continue taking tessalon perles as needed for cough. If your shortness of breath worsens, you develop new fevers, or there is a change in the sputum you bring up when you cough, please call our primary care office ([facility] ) or come to the ER if it is severe. I reached out to Dr Carlos & the oncology team to reschedule your CT scans and they are working on it. If you do not hear a new date from them, please call to follow up on this. Pending Studies at Discharge: Yes Studies:: Final blood cultures (currently NGTD) Stand-Alone Forms: My [facility], Work/School Release Medications and DC Order Prescriptions: New lactulose 20 gram/30 mL Solution 20 g PO BID PRN (Reason: constipation) Qty: 1500 RF: 0 polyethylene glycol 3350 [Miralax] 17 gram Powder In Packet 17 g PO DAILY Qty: 100 RF: 0 sennosides [Senokot] 8.6 mg Tablet 17.2 mg PO BID Qty: 60 RF: 0 benzonatate 100 mg Capsule 100 mg PO TID PRN (Reason: cough) Qty: 60 RF: 0 azithromycin 250 mg Tablet 500 mg PO Q24H 5 Days Qty: 10 RF: 0 cefpodoxime 200 mg tablet 200 mg PO BID 5 Days Qty: 10 RF: 0 Continued metoprolol succinate 25 mg tablet extended release 24 hr 25 mg PO PM Qty: 90 RF: 3 levothyroxine 75 mcg capsule 75 mcg PO QAM Qty: 90 RF: 3 clindamycin HCl 150 mg Capsule 150 mg PO DIRECTED RF: 0 multivitamin Tablet 1 tab PO PM RF: 0 cholecalciferol (vitamin D3) [Vitamin D3] 25 mcg (1,000 unit) Capsule 1,000 mcg PO QAM RF: 0 cyanocobalamin (vitamin B-12) 500 mcg Tablet 500 mcg PO QAM RF: 0 Discontinued docusate sodium 100 mg Capsule 100 mg PO BID RF: 0 Discharge Orders: Discharge Order (Routine); Ordered 03/23/21 Ordered By: Cammie Santiago/Other Patient Handouts: What Is Pneumonia? Admission Data Admit Date/Time: 03/21/21 22:45 Attending Provider: Cammie Lockett Admit Provider: Deandre Zuluaga Primary Care Provider: Cammie Lockett Other Providers: Deandre Zuluaga Coding Level of Care Code D/C DAY MANAGEMENT <30 MINS Diagnoses Pneumonia J18.9 Pneumonia type: due to unspecified organism Laterality: right Lung location: middle lobe of lung Lab test negative for COVID-19 virus Z20.822 Prediabetes R73.03 Hypothyroidism E03.9 SVT (supraventricular tachycardia) I47.1 OMAR (acute kidney injury) N17.9 Constipation K59.00
== END 2021-03-23 16:02 | disposition home or self-care (01) | DRG 194 ==
LOC: ED 18:04 → SUATTDRO 22:45 → EDINP 22:45 → 2N 03-22 18:32